=== PATIENT | male | born 1985 | race Caucasian/White ===

== ENCOUNTER 2022-12-16 20:45 | Emergency (ER) | payer OTHER, SELFPAY ==
[2022-12-16 20:47] VITALS: BP 113/78; PULSE 94; RESP 20; TEMP 36.5; O2SAT 98; BMI 52.3
--- NOTE | 2022-12-16 21:20 | HMH.EDGENADL ---
Discharge Plan Disposition Patient Disposition: Home, Self-Care Chief Complaint: Allergic Reaction Referrals Follow up/Referrals: Provider,Referral, MD [Primary Care Provider] - See instructions Activity Restrictions/Add. Instructions Additional Instructions/Restrictions: Call your family doctor to establish care for this visit to the emergency department and schedule follow-up within 48 hours to ensure improvement. If you have any worsening of your condition or any other concerning signs or symptoms, return to the emergency department or your primary care doctor for further evaluation. If you have swelling of your tongue or lips, difficulty breathing, whistling sound in your throat, wheezing, nausea or vomiting, sweating, diffuse rash/hives, lightheadedness, chest pain, shortness of breath, or any other concerns, return to the ER promptly for further evaluation. These are signs of anaphylaxis. Clinical Impressions Clinical Impression: Bee sting Qualifiers: Encounter type: initial encounter Injury intent: accidental or unintentional Qualified Code(s): T63.441A - Toxic effect of venom of bees, accidental (unintentional), initial encounter Instructions Patient Instructions: DI for Insect Bites and Stings Discharge ED Provider: Tyrone Teixeira General Adult HPI General Chief complaint: Allergic Reaction Stated complaint: bee stings Time Seen by Provider: 12/16/22 20:50 Mode of Arrival: Ambulatory Source of Information: Patient Limitations: No Limitations Description of Symptoms (Recalled from ER Triage Doc. by RN): pt reports being stung by 2 bees on left lower leg about 1 hour ago and is worried stinger is still in leg. History of Present Illness HPI narrative: Is a 37-year-old male with history of hypertension diabetes presenting with bee stings. Patient states he got stung on his left ankle about 1 hour ago by 2 bees. Denies chest pain, shortness of breath, nausea or vomiting, diarrhea, abdominal pain, swelling of his tongue or lips, difficulty breathing or swallowing, or any other concerns. Wanted to make sure he was okay having never been stung. [facility] Disclaimer: The information contained in this section may have been updated after the patient was seen, as this information can be updated by other users. Social History Smoking Status: Never smoker alcohol intake: never current occupational status: unemployed Travel in the last 8 weeks: None ROS Obtained: Yes All systems reviewed & no additional complaints except as documented Physical Exam General General appearance: alert, in no apparent distress and other ( ) Head Head exam: atraumatic and normocephalic Eye Eye exam: Present normal appearance, PERRL and EOMI ENT ENT exam: Present mucous membranes moist Neck Neck exam: Present normal inspection, full ROM and trachea midline Respiratory Respiratory exam: Absent respiratory distress, wheezes, stridor, accessory muscle use or prolonged expiratory phase Cardiovascular Cardiovascular exam: Present regular rate and normal rhythm Abdominal Exam Abdominal exam: Present soft; Absent distention, tenderness, guarding, rebound, rigidity or normal bowel sounds Extremities Exam Extremities exam: Absent edema Neurological Exam Neurological exam: Present alert, oriented X3, CN II-XII intact and normal gait; Absent motor sensory deficit Skin Skin exam: Present warm and dry; Absent diaphoresis or erythema Medical Decision Making Medical Records Medical records reviewed: Yes I reviewed the patient's medical records. Osmin Inquiry Pt receiving controlled substance: No Osmin was queried for this patient: No Vital Signs: 12/16/22 20:47 Temperature 97.7 F Temperature Source Oral Pulse Rate [Right] 94 H Respiratory Rate 20 Blood Pressure [Right Arm] 113/78 Blood Pressure Mean [Right Arm] 89 Blood Pressure Source [Right Arm] Automatic Cuff Blood Pressure Position [Right Arm] Sitting 02 Sat by Pulse Oxi
[2022-12-16 21:31] VITALS: BP 113/71; PULSE 89; RESP 20; TEMP 36.5; O2SAT 99
--- NOTE | 2022-12-16 21:31 | PC.NURSE ---
Denies any SOA, swelling or itching at discharge
== END 2022-12-16 21:32 | disposition home or self-care (01) ==
PROVIDERS: Emergency Provider Emergency Medicine
DX: S80.862A Insect bite (nonvenomous), left lower leg, initial encounter (principal); I10 Essential (primary) hypertension; E11.9 Type 2 diabetes mellitus without complications; W57.XXXA Bitten or stung by nonvenomous insect and other nonvenomous arthropods, initial encounter
CPT/HCPCS: 99282

== ENCOUNTER 2023-04-25 14:17 | Outpatient (CLI) | payer MEDICAID, SELFPAY ==
--- NOTE | 2023-04-25 14:23 | MR_ITS ---
FINAL REPORT CLINICAL HISTORY: left shoulder pain, limited rom FINDINGS: Multiplanar MR imaging of the left shoulder was performed without contrast. Some of the images are obscured by artifact. The tendons of the rotator cuff are intact without evidence of rotator cuff tear. The a.c. joint is intact. No abnormal fluid is seen in the subacromial/subdeltoid bursa. There is thickening and heterogeneity of the joint capsule at the axillary recess consistent with adhesive capsulitis. The glenoid labrum is intact. The long head of the biceps tendon is intact. No significant glenohumeral joint effusion is seen. There is no evidence of fracture or dislocation. The musculature is intact. There is no evidence of soft tissue mass. IMPRESSION: Adhesive capsulitis. Reviewed, Interpreted and Dictated by jK Geiger III, MD Transcribed by Mare Simon Authenticated and [facility]
== END 2023-04-25 23:59 ==
LOC: RAD 14:18
PROVIDERS: Visit Provider Physician Assistant
DX: M25.512 Pain in left shoulder (principal)
CPT/HCPCS: 73221

== ENCOUNTER 2023-09-01 18:25 | Emergency (ER) | payer MEDICAID, SELFPAY ==
[2023-09-01 18:45] VITALS: BP 118/81; PULSE 80; RESP 18; TEMP 37.1; O2SAT 96; BMI 55.0
--- NOTE | 2023-09-01 18:53 | EXP.UTC ---
Discharge Plan Disposition Patient Disposition: Home, Self-Care Condition: Good Prescriptions Prescriptions: New clindamycin HCl 300 mg capsule 300 mg PO Q8H Qty: 30 0RF benzonatate 100 mg capsule 100 mg PO TIDP PRN (Reason: Cough) Qty: 30 0RF mupirocin 2 % ointment 1 applic topical TID 7 Days Qty: 15 0RF Referrals Follow up/Referrals: Stevo Tineo PA [Primary Care Provider] - See instructions Activity Restrictions/Add. Instructions Additional Instructions/Restrictions: Drink plenty of fluids. Take tylenol for pain or fever. Take the medications as directed. Apply the antibiotic ointment (mupirocin/bactroban) to the ulcer in your right nare as directed. Follow up with your regular doctor. GO TO THE ER FOR ANY WORSENING SYMPTOMS Throw your tooth brush away and get a new one. Clinical Impressions Clinical Impression: Strep throat, Nasal mucositis (ulcerative) Instructions Patient Instructions: Strep Throat, DI for Strep Throat, Clindamycin, Mupirocin Discharge ED Provider: Rick Davenport [facility] General Stated complaint: sore throat, sinus pressure Time Seen by Provider: 09/01/23 18:52 Related Data Previous Rx's Medication Instructions Recorded benzonatate 100 mg capsule 100 mg PO TIDP PRN Cough #30 caps 09/01/23 clindamycin HCl 300 mg capsule 300 mg PO Q8H #30 caps 09/01/23 mupirocin 2 % topical ointment 1 applic topical TID 7 days #15 09/01/23 grams Allergies Allergy/AdvReac Type Severity Reaction Status Date / Time cefaclor [From [facility]] Allergy Verified 09/01/23 19:02 Penicillins Allergy Verified 09/01/23 19:02 [facility] Disclaimer: The information contained in this section may have been updated after the patient was seen, as this information can be updated by other users. Social History (Updated 12/16/22 @ 21:24 by Tyrone Teixeira MD) Smoking Status: Never smoker alcohol intake: never current occupational status: unemployed Travel in the last 8 weeks: None ROS Obtained: Yes All systems reviewed & no additional complaints except as documented Constitutional Constitutional: Reports chills and Reports fever(s) Eyes Eyes: Denies eye discharge ENT Ears, Nose, Mouth, and Throat: Reports as per HPI Cardiovascular Cardiovascular: Denies chest pain Respiratory Respiratory: Denies chest congestion and Reports cough Gastrointestinal Gastrointestingal: Reports nausea; Denies abdominal pain, constipation, cramping, diarrhea or vomiting Musculoskeletal Musculoskeletal: Denies arthralgias Integumentary/Breasts Skin/Breast: Denies rash Neurologic Neurologic: Denies paresthesias Physical Exam General General appearance: alert and in no apparent distress Head Head exam: atraumatic, normocephalic and normal inspection Eye Eye exam: Present normal appearance, PERRL and EOMI ENT ENT exam: Present mucous membranes moist and normal external ear exam Expanded ENT Exam TM/Canal exam: Bilateral TM: erythema and bulging Nose exam: Absent sinus tenderness Mouth exam: Present normal external inspection; Absent drooling Teeth exam: Present normal inspection Throat exam: Present tonsillar erythema, tonsillomegaly and tonsillar exudate Neck Neck exam: Present normal inspection, full ROM and trachea midline; Absent tenderness, meningismus or lymphadenopathy Chest Chest inspection: Present normal inspection and symmetric chest wall rise; Absent tenderness Respiratory Respiratory exam: Present normal lung sounds bilaterally; Absent respiratory distress, wheezes, stridor or accessory muscle use Cardiovascular Cardiovascular exam: Present regular rate and normal rhythm; Absent systolic murmur or diastolic murmur Abdominal Exam Abdominal exam: Present soft and normal bowel sounds; Absent distention, tenderness, guarding, rebound or rigidity Extremities Exam Extremities exam: Present normal inspection and normal capillary refill; Absent calf tenderness Back Exam Back exam: Present normal inspection and full ROM; Absent tenderness, CVA tenderness (R) or CVA tenderness (L) Neurological Exam Neurological exam: Present alert, oriented X3 and CN II-XII intact Psychiatric Psychiatric exam: Present normal affect and normal mood Skin Skin exam: Present warm, dry, intact and normal color Medical Decision Making Medical Records Medical records reviewed: No I reviewed the patient's medical records. Osmin Inquiry Pt receiving controlled substance: No Lab Data Lab results reviewed: Yes I reviewed the patient's lab results.
[2023-09-01 18:58] LABS: UTC Strep Screen (Rapid) Positive (Negative)
[2023-09-01 19:37] VITALS: BP 118/81; PULSE 80; RESP 18; TEMP 37.1; O2SAT 96
== END 2023-09-01 19:37 | disposition home or self-care (01) ==
PROVIDERS: Emergency Provider Nurse Practitioner Family; PCP Physician Assistant
DX: J02.0 Streptococcal pharyngitis (principal); R07.0 Pain in throat; J34.81 Nasal mucositis (ulcerative); R09.81 Nasal congestion
CPT/HCPCS: 87880; 99204; 99212; G0463

== ENCOUNTER 2025-01-13 18:03 | Emergency (ER) | payer MEDICAID, SELFPAY ==
--- OUTSIDE RECORDS SUMMARY | 2023-01-27 07:50 | XMS_ITS | Continuity of Care Document ---
Author Organization [facility] Address [address] [place] [address] Phone Care Team Providers Care Primer Inspector Name Role Phone Unavailable Unavailable Unavailable Allergies, Adverse Reactions, Alerts Substance Reaction Status Criticality promethazine Swelling(severe) Active No Informat ion Penicillins Active No Information cefaclor Active No Information Medications Medication Instructions Dosage Effective Dates (start - stop) Status Comments guanfacine 2 mg tablet TAKE ONE TABLET B Y MOUTH ONCE NIGHTLY AT BEDTIME 2 MG - Active lisinopril 20 mg tablet TAKE 1 TABLET BY MOUTH EVERY DAY - Active Tylenol Extra Strength 500 mg tablet take 1 tablet by oral route every 4 - 6 hours as needed not to exceed 8 tablets per 24hrs 500 MG - Active loratadine 10 mg tablet take 1 tablet by oral route every day 10 MG - Active Trulicity 0.75 mg/0.5 mL subcutaneous pen injector inject (0.75MG) by subcutaneous route every week - Active famotidine 20 mg tablet TAKE 1 TABLET BY MOUTH TWICE DAILY - Active trazodone 100 mg tablet take 1 Tablet by ORAL route every bedtime as needed for sleep 100 MG - Active Ventolin HFA 90 mcg/actuation aerosol inhaler inhale 2 puff by inhalation route every 4 - 6 hours as needed - Active Flonase Allergy Relief 50 mcg/actuation nasal spray,suspension inhale 1 spray by intranasal route every day in each nostril 50 MCG - Active pseudoephedrine 30 mg tablet take 1 tablet by ORAL route every 6 hours as needed for congestion 30 MG - Active Advance Directives Directive Yes / No Effective Date File Name No Information Encounters Encounter Description Practice Location Reason(s) For Visit Diagnoses Date Provider [facility], [address], [place], [place], [id number], tel:[phone] [facility] No Information 3 No Information [facility], [address], [place], [place], [id number], tel:[phone] [facility] No Information 3 Clinic RN. [address] [place] [address], [id number], . tel:[phone] [facility] [address], [place], [id number], tel:[phone] [facility] Morbid obesity with BMI of 50.0-59.9, adult August- 3 Perches Jose. [address] [place] [address], [id number], [place]. tel:[phone] [facility] [address], [place], [id number], tel:[phone] [facility] Medical hypertension (chief complaint)paddy betes (chief complaint)dep ression (chief complaint)cov id-19 (chief complaint)oth er (chief complaint) Type 2 diabetes mellitus without complicationsEsse ntial (primary) hypertensionMajor depressive disorder, recurrent episode, moderateOSA (obstructive sleep apnea)Gastroesoph ageal reflux disease without esophagitisMild intermittent asthma in adult without complicationEnvir onmental and seasonal allergiesMorbid obesity with body mass index (BMI) of 50.0 to 59.9 in adultBody mass index [BMI] 50.0-59.9, adult Mar-3 - 3 Karel Megha. [address] [place] [address], [id number], . tel:[phone] [facility], [address], [place], [place], [id number], [place] tel:[phone] [facility] Morbid obesity with BMI of 50.0-59.9, adult 3 [facility]. [address] [place] [address], [id number], [place]. tel:[phone] [facility], [address], [place], [id number], tel:[phone] [facility] Morbid obesity with BMI of 50.0-59.9, adult 3 [facility]. [address] [place] [address], [id number], [place]. tel:[phone] [facility], [address], [place], [id number], [place] tel:[phone] [facility] diabetes (chief complaint)hyp ertension (chief complaint)dep ression (chief complaint)COV ID 19 (chief complaint)oth er (chief complaint) Type 2 diabetes mellitus without complication, without long-term current use of insulinEssential (primary) hypertensionOSA (obstructive sleep apnea)Major depressive disorder, recurrent episode, moderateMorbid obesity with BMI of 50.0-59.9, adultBody mass index [BMI] 50.0-59.9, adult Mar- 2 Karel Lamia. [address] [place] [address], [id number], [place]. tel:[phone] [facility], [address], [place], [place], [id number], [place] tel:[phone] [facility] Morbid obesity with BMI of 50.0-59.9, adult 2 [facility]. [address] [place] [address], [id number], [place]. tel:[phone] [facility], [address], [place], [place], [id number], tel:[phone] [facility] Morbid obesity with BMI of 50.0-59.9, adult Oct- 2 Perches Jose. [address] [place] [address], [id number], [place]. tel:[phone] [facility], [address] [place] [address], [id number], tel:[phone] [facility] Medical diabetes (chief complaint)hyp ertension (chief complaint)dep ression (chief complaint)COV ID_19 Screen (chief complaint) Type 2 diabetes mellitus without complication, without long-term current use of insulinEssential (primary) hypertensionOSA (obstructive sleep apnea)Major depressive disorder, recurrent episode, moderateMorbid obesity with BMI of 50.0-59.9, adultBody mass index [BMI] 50.0-59.9, adultGastroesopha geal reflux disease without esophagitisMild intermittent asthma in adult without complication Sep- 2 Karel Megha. [address] [place] [address], [id number], [place]. tel:[phone] [facility], [address] [place] [address], [id number], [place] tel:[phone] [facility] Morbid obesity with BMI of 50.0-59.9, adult Sep-2 2 Perches Jose. [address] [place] [address], [id number], [place]. tel:[phone] [facility], [address] [place] [address], [id number], [place] tel:[phone] [facility] No Information Sep-0 2 Medical Support NonRn. [address] [place] [address], [id number], [place]. tel:[phone] [facility], [address] [place] [address], [id number], [place] tel:[phone] [facility] Morbid obesity with BMI of 50.0-59.9, adult Aug- 2 Perches Jose. [address] [place] [address], [id number], [place]. tel:[phone] [facility], [address], [place], [id number], [place] tel:[phone] [facility] Morbid obesity with BMI of 50.0-59.9, adult 2 Perches Jose. [address] [place] [address], [id number], [place]. tel:[phone] [facility], [address], [place], [id number], [place] tel:[phone] [facility] Medical Type 2 diabetes mellitus without complications 2 Medical Support NonRn. [address] [place] [address], [id number], [place]. tel:[phone] [facility], [address] [place] [address], [id number], [place] tel:[phone] [facility] Medical retinal eye exam (chief complaint) Type 2 diabetes mellitus without complication, without long-term current use of insulin 2 Medical Support NonRn. [address] [place] [address], [id number], [place]. tel:[phone] [facility], [address], [place], [id number], [place] tel:[phone] ABHILAHS [facility] Medical hypertension (chief complaint)paddy betes (chief complaint)dep ression (chief complaint)COV ID_19 Screen (chief complaint)All ergy symptoms (chief complaint) Type 2 diabetes mellitus without complication, without long-term current use of insulinEssential (primary) hypertensionMajor depressive disorder, recurrent episode, moderateOSA (obstructive sleep apnea)Morbid obesity with BMI of 50.0-59.9, adultBody mass index [BMI] 50.0-59.9, adultEnvironmenta l and seasonal allergiesPreventa ti health care 2 Karel Megha. [address] [place] [address], [id number], [place]. tel:[phone] [facility], [address], [place], [id number], [place] tel:[phone] [facility] Morbid obesity with BMI of 50.0-59.9, adult Bhavin- 2 Perches Jose. [address] [place] [address], [id number], [place]. tel:[phone] [facility], [address], [place], [place], [id number], [place] tel:[phone] [facility] Morbid obesity with BMI of 50.0-59.9, adult 2 Perches Jose. [address] [place] [address], [id number], [place]. tel:[phone] [facility], [address], [id number], [place] tel:[phone] [facility] No Information 2 Medical Support NonRn. [address] [place] [address], [id number], [place]. tel:[phone] [facility], [address], [place], [place], [id number], [place] tel:[phone] [facility] Medical diabetes (chief complaint)dep ression (chief complaint)hyp ertension (chief complaint)COV ID_19 Screen (chief complaint) Type 2 diabetes mellitus without complication, without long-term current use of insulinEssential (primary) hypertensionMajor depressive disorder, recurrent episode, moderateMorbid obesity with BMI of 50.0-59.9, adultBody mass index [BMI] 50.0-59.9, adultOSA (obstructive sleep apnea)Gastroesoph ageal reflux disease without esophagitisMild intermittent asthma in adult without complication 2 Karel Megha. [address] [place] [address], [id number], [place]. tel:[phone] [facility], [address], [place], [place], [id number], [place] tel:[phone] [facility] Morbid obesity with BMI of 50.0-59.9, adultMajor depressive disorder, recurrent episode, moderate 2 Perches Jose. [address] [place] [address], [id number], [place]. tel:[phone] [facility], [address], [id number], [place] tel:[phone] [facility] Morbid obesity with BMI of 50.0-59.9, adultMajor depressive disorder, recurrent episode, moderate 2 Perches Jose. [address] [place] [address], [id number], [place]. tel:[phone] [facility], [address], [place], [id number], [place] tel:[phone] [facility] No Information 2 Medical Support NonRn. [address] [place] [address], [id number], [place]. tel:[phone] [facility], [address], [id number], [place] tel:[phone] [facility] Medical imms (chief complaint) Encounter for immunization 1 Medical Support NonRn. [address] [place] [address], [id number], [place]. tel:[phone] [facility], [address], [id number], [place] tel:[phone] [facility] depression (chief complaint)paddy betes (chief complaint)hyp ertension (chief complaint)COV ID_19 Screen (chief complaint) Type 2 diabetes mellitus without complication, without long-term current use of insulinEssential (primary) hypertensionMajor depressive disorder, recurrent episode, moderateOSA (obstructive sleep apnea) 1 Karel Cleveland. [address] [place] [address], [id number], [place]. tel:[phone] [facility], [address], [place], [id number], tel:[phone] [facility] Morbid obesity with BMI of 50.0-59.9, adult 1 [facility], [id number], . tel:[phone] [place] [address], [address] [place] [address], [id number], tel:[phone] [facility] Morbid obesity with BMI of 50.0-59.9, adult [address], [id number], [place]. tel:[phone] [place] [address], [address] [place] [address], [id number], tel:[phone] [facility] Morbid obesity with BMI of 50.0-59.9, adultMajor depressive disorder, recurrent episode, moderate Jan- [address], [id number], [place]. tel:[phone] [place] [address], [address], [id number], [place] tel:[phone] [facility] Morbid obesity with BMI of 50.0-59.9, adult [address], [id number], [place]. tel:[phone] [place] [address], [address] [place] [address], [id number], [place] tel:[phone] [facility] Medical diabetes (chief complaint)hyp ertension (chief complaint)dep ression (chief complaint)COV ID_19 Screen (chief complaint) Type 2 diabetes mellitus without complication, without long-term current use of insulinEssential (primary) hypertensionMajor depressive disorder, recurrent episode, moderateOSA (obstructive sleep apnea)Morbid obesity with BMI of 50.0-59.9, adultBody mass index [BMI] 50.0-59.9, adult Sep-1 0- 1 Karel Cleveland. [address] [place] [address], [id number], [place]. tel:[phone] [facility], [address], [place], [id number], [place] tel:[phone] [facility] No Information Sep-0 1 Medical Support NonRn. [address] [place] [address], [id number], [place]. tel:[phone] [facility], [address], [place], [id number], [place] tel:[phone] [facility] Morbid obesity with BMI of 50.0-59.9, adult Aug- 1 Marilyn Garcia. [address] [place] [address], [id number], [place]. tel:[phone] [facility], [address], [place], [id number], [place] tel:[phone] [place] [address] Medical Morbid obesity with BMI of 50.0-59.9, adult Antonio- 1 No Information [facility], [address], [place], [id number], [place] tel:[phone] [facility] No Information 1 Medical Support NonRn. [address] [place] [address], [id number], [place]. tel:[phone] [facility], [address], [id number], [place] tel:[phone] [facility] Medical Retinal Eye Exam (chief complaint) Type 2 diabetes mellitus without complication, without long-term current use of insulin 1 Medical Support NonRn. [address] [place] [address], [id number], [place]. tel:[phone] [facility], [address], [place], [id number], [place] tel:[phone] [facility] Medical imms (chief complaint) Encounter for immunization 1 Medical Support NonRn. [address] [place] [address], [id number], [place]. tel:[phone] [facility], [address], [place], [place], [id number], [place] tel:[phone] [facility] Morbid obesity with BMI of 50.0-59.9, adult 1 No Information [facility], [address], [place], [place], [id number], [place] tel:[phone] [facility] Sukhdeep Al[facility]ado Medical diabetes (chief complaint)hyp ertension (chief complaint)dep ression (chief complaint)COV ID_19 Screen (chief complaint)All ergy symptoms (chief complaint) Type 2 diabetes mellitus without complication, without long-term current use of insulinEssential (primary) hypertensionEnvir onmental and seasonal allergiesMajor depressive disorder, recurrent episode, moderateGastroeso phageal reflux disease without esophagitisOSA (obstructive sleep apnea)Body mass index (BMI) of 50-59.9 in adult 1 Karel Cleveland. [address] [place] [address], [id number], [place]. tel:[phone] [facility], [address], [place], [place], [id number], [place] tel:[phone] [facility] Morbid obesity with BMI of 50.0-59.9, adult 1 No Information [facility], [address], [place], [place], [id number], [place] tel:[phone] [facility] Moderate single current episode of major depressive disorderMorbid obesity with BMI of 50.0-59.9, adult 1 No Information [facility], [address], [place], [id number], [place] tel:[phone] [facility] S[facility]hdeep [facility] COVID_19 Screen (chief complaint)[facility] S evaluation (chief complaint) Body mass index (BMI) 50-59.9 , adultMorbid obesity with BMI of 50.0-59.9, adultMajor depressive disorder, recurrent episode, moderateChronic left shoulder painPain in right kneePain in left knee Jun-3 1 Karel Cleveland. [address] [place] [address], [id number], . tel:[phone] [facility], [address], [place], [id number], [place] tel:[phone] [facility] Medical depression (chief complaint)paddy betes (chief complaint)hyp ertension (chief complaint)Raphael ulder Pain (chief complaint)COV ID_19 Screen (chief complaint)Obe sity (chief complaint) Type 2 diabetes mellitus without complication, without long-term current use of insulinEssential (primary) hypertensionMajor depressive disorder, recurrent episode, moderateMild intermittent asthma in adult without complicationGastr oesophageal reflux disease without esophagitisDry skinMorbid obesity with BMI of 50.0-59.9, adultBody mass index [BMI] 50.0-59.9, adultOSA (obstructive sleep apnea) Jun-0 1 Karel Cleveland. [address] [place] [address], [id number], [place]. tel:[phone] [facility], [address], [place], [id number], [place] tel:[phone] [facility] Moderate single current episode of major depressive disorderMorbid obesity with BMI of 50.0-59.9, adult Fe- 1 No Information [facility], [address], [place], [place], [id number], [place] tel:[phone] [facility] Moderate single current episode of major depressive disorder No Information [facility], [address], [place], [place], [id number], [place] tel:[phone] [facility] Moderate single current episode of major depressive disorder 1 No Information [facility], [address], [place], [place], [id number], tel:[phone] [facility] Sukhdeep Alvarado Medical depression (chief complaint)paddy betes (chief complaint)hyp ertension (chief complaint)COV ID_19 Screen (chief complaint) Type 2 diabetes mellitus without complication, without long-term current use of insulinEssential (primary) hypertensionOSA (obstructive sleep apnea)Major depressive disorder, recurrent episode, moderateMorbid obesity with BMI of 50.0-59.9, adultBody mass index [BMI] 50.0-59.9, adultChronic left shoulder pain Dec- 0 Karel Cleveland. [address] [place] [address], [id number], . tel:[phone] [facility], [address], [place], [place], [id number], tel:[phone] [facility] Moderate single current episode of major depressive disorderMorbid obesity with BMI of 50.0-59.9, adult Nov- 0 No Information [facility], [address], [place], [place], [id number], [place] tel:[phone] [facility] Moderate single current episode of major depressive disorderMorbid obesity with BMI of 50.0-59.9, adult Sep-3 0-202 0 No Information [facility], [address], [place], [place], [id number], tel:[phone] [facility] Sukhdeep Alvarado Medical diabetes (chief complaint)hyp ertension (chief complaint)dep ression (chief complaint)COV ID_19 Screen (chief complaint) Type 2 diabetes mellitus without complication, without long-term current use of insulinEssential (primary) hypertensionMajor depressive disorder, recurrent episode, moderateMorbid obesity with BMI of 50.0-59.9, adultBody mass index (BMI) 50.0-59.9, adultOSA (obstructive sleep apnea) 0 Karel Cleveland. [address] [place] [address], [id number], [place]. tel:[phone] [facility], [address], [place], [id number], [place] tel:[phone] [facility] Moderate single current episode of major depressive disorderMorbid obesity with BMI of 50.0-59.9, adult 0 No Information [facility], [address], [place], [id number], [place] tel:[phone] [facility] No Information 0 Medical Support NonRn. [address], [id number], [place]. tel:[phone] [facility], [address], [place], [place], [id number], [place] tel:[phone] [facility] Moderate single current episode of major depressive disorderMorbid obesity with BMI of 50.0-59.9, adult 0 No Information [facility], [address], [place], [id number], [place] tel:[phone] [facility] Moderate single current episode of major depressive disorderMorbid obesity with BMI of 50.0-59.9, adult 0 No Information [facility], [address], [place], [place], [id number], [place] tel:[phone] [facility] Medical depression (chief complaint)paddy betes (chief complaint)hyp ertension (chief complaint) Type 2 diabetes mellitus without complication, without long-term current use of insulinEssential (primary) hypertensionOSA (obstructive sleep apnea)Major depressive disorder, recurrent episode, moderateMorbid obesity with BMI of 50.0-59.9, adultBody mass index (BMI) 50.0-59.9, adult 0 Karel Megha. [address], [id number], [place]. tel:[phone] [facility], [address], [place], [place], [id number], [place] tel:[phone] [facility] Moderate single current episode of major depressive disorder 0 No Information [facility], [address], [place], [place], [id number], tel:[phone] [facility] No Information 0 Health Care Information [facility]. [address] [place] [address], [id number], [place]. [facility], [address], [place], [place], [id number], tel:[phone] [facility] Retinal eye exam (chief complaint) Type 2 diabetes mellitus without complication, without long-term current use of insulin 0 Medical Support NonRn. [address] [place] [address], [id number], [place]. tel:[phone] [facility], [address], [place], [id number], [place] tel:[phone] [facility] Moderate single current episode of major depressive disorderOSA (obstructive sleep apnea)Morbid obesity, unspecified obesity type 0 No Information [facility], [address], [place], [place], [id number], [place] tel:[phone] [facility] depression (chief complaint)paddy betes (chief complaint)Obe sity (chief complaint)Sle ep apnea (follow up) (chief complaint)hyp ertension (chief complaint) Essential (primary) hypertensionOSA (obstructive sleep apnea)Type 2 diabetes mellitus without complication, without long-term current use of insulinMorbid obesity with BMI of 50.0-59.9, adultBody mass index (BMI) 50.0-59.9, adultMajor depressive disorder, recurrent episode, moderate 0 Karel Cleveland. [address] [place] [address], [id number], [place]. tel:[phone] [facility], [address], [place], [place], [id number], tel:[phone] [facility] Moderate single current episode of major depressive disorder 9 No Information [facility], [address], [place], [place], [id number], tel:[phone] [facility] Moderate single current episode of major depressive disorder Jan-3 0 9 No Information [facility], [address], [place], [place], [id number], tel:[phone] [facility] Sukhdeep [facility] Medical depression (chief complaint)paddy betes (chief complaint)hyp ertension (chief complaint) Major depressive disorder, recurrent episode, moderateType 2 diabetes mellitus without complication, without long-term current use of insulinEssential (primary) hypertensionMorbi d obesity with BMI of 50.0-59.9, adultOSA (obstructive sleep apnea)Chronic left shoulder painBody mass index (BMI) 50.0-59.9, adult Jan- 9 Karel Cleveland. [address] [place] [address], [id number], . tel:[phone] [facility], [address], [place], [place], [id number], tel:[phone] [facility] Moderate single current episode of major depressive disorder Sep-2 9 No Information [facility], [address], [place], [place], [id number], tel:[phone] [facility] No Information Dec-0 9 Medical Support NonRn. [address], [id number], [place]. tel:[phone] [facility], [address], [place], [place], [id number], [place] tel:[phone] [facility] Sukhdeep Alvarado CC Medical Incapacity Review (chief complaint)Raphael ulder Pain (chief complaint) Chronic left shoulder painMajor depressive disorder, recurrent episode, moderateMorbid obesity with BMI of 50.0-59.9, adultBody mass index (BMI) 50-59.9, adult Sep-0 9 Karel Cleveland. [address], [id number], [place]. tel:[phone] [facility], [address], [place], [id number], [place] tel:[phone] [facility] Medical Moderate single current episode of major depressive disorderMorbid obesity with body mass index (BMI) of 60.0 to 69.9 in adult Nov- 9 No Information [facility], [address], [place], [id number], [place] tel:[phone] [facility] diabetes (chief complaint)dep ression (chief complaint)hyp ertension (chief complaint) Essential (primary) hypertensionType 2 diabetes mellitus without complication, without long-term current use of insulinOSA (obstructive sleep apnea)Major depressive disorder, recurrent episode, moderateMorbid obesity with body mass index (BMI) of 60.0 to 69.9 in adultBody mass index (bmi) 60.0-69.9, adultEnvironmenta l and seasonal allergies 9 Karel Cleveland. [address], [id number], [place]. tel:[phone] [facility], [address], [place], [place], [id number], [place] tel:[phone] [facility] Moderate single current episode of major depressive disorder No Information [facility], [address], [place], [place], [id number], [place] tel:[phone] [facility] Medical No Information Health Care Information [facility]. [address] [place] [address], [id number], [place]. [facility], [address], [place], [id number], [place] tel:[phone] [facility] Medical No Information Health Care Information [facility]. [address], [id number], [place]. [facility], [address], [place], [place], [id number], [place] tel:[phone] [facility] Medical Moderate single current episode of major depressive disorder 9 No Information [facility], [address], [place], [place], [id number], [place] tel:[phone] [facility] Moderate single current episode of major depressive disorderMorbid obesity with body mass index of 60.0-69.9 in adult 9 No Information [facility], [address], [place], [place], [id number], [place] tel:[phone] [facility] Moderate single current episode of major depressive disorder 9 No Information [facility], [address], [place], [place], [id number], [place] tel:[phone] [facility] Sukhdeep Alvarado Medical depression (chief complaint)paddy betes (chief complaint)hyp ertension (chief complaint)Ast hma (chief complaint) Type 2 diabetes mellitus without complication, without long-term current use of insulinEssential (primary) hypertensionMajor depressive disorder, recurrent episode, moderateMorbid obesity with body mass index of 60.0-69.9 in adultBody mass index (bmi) 60.0-69.9, adultMild intermittent asthma in adult without complicationOSA (obstructive sleep apnea) 9 Karel Cleveland. [address], [id number], [place]. tel:[phone] [facility], [address], [place], [place], [id number], [place] tel:[phone] [facility] No Information 9 No Information [facility], [address], [place], [place], [address], [place] tel:[phone] [facility] Retinal eye exam (chief complaint) Type 2 diabetes mellitus without complication, without long-term current use of insulin 9 Medical Support NonRn. [address], [id number], [place]. tel:[phone] [facility], [address], [place], [place], [id number], [place] tel:[phone] [facility] Moderate single current episode of major depressive disorder 9 No Information [facility], [address], [place], [place], [id number], [place] tel:[phone] [facility] Sukhdeep Alvarado CC Medical diabetes (chief complaint)hyp ertension (chief complaint)dep ression (chief complaint) Type 2 diabetes mellitus without complication, without long-term current use of insulinEssential (primary) hypertensionMajor depressive disorder, recurrent episode, moderateMorbid obesity with body mass index of 60.0-69.9 in adultBody mass index (bmi) 60.0-69.9, adult 9 Karel Cleveland. [address], [id number], [place]. tel:[phone] [facility], [address], [place], [place], [id number], [place] tel:[phone] [facility] Moderate single current episode of major depressive disorder 8 No Information [facility], [address], [place], [place], [id number], [place] tel:[phone] [facility] No Information 8 Delvin Breen. [address], [place], [place], [id number], [place]. [facility], [address], [place], [place], [id number], [place] tel:[phone] [facility] No Information 8 Health Care Information [facility]. [address], [id number], [place]. [facility], [address], [place], [place], [id number], [place] tel:[phone] [facility] Medical Attention deficit hyperactivity disorder (ADHD), predominantly inattentive type 8 No Information [facility], [address], [place], [place], [id number], [place] tel:[phone] [facility] No Information 8 Delvin Breen. [address], [place], [place], [id number], [place]. [facility], [address], [place], [place], [id number], [place] tel:[phone] [facility] Sukhdeep Alvarado CC Medical depression (chief complaint)paddy betes (chief complaint)hyp ertension (chief complaint) Type 2 diabetes mellitus without complication, without long-term current use of insulinEssential (primary) hypertensionMajor depressive disorder, recurrent episode, moderateMorbid obesity with body mass index of 60.0-69.9 in adultBody mass index (bmi) 60.0-69.9, adultChronic left shoulder pain 8 Karel Cleveland. [address], [id number], [place]. tel:[phone] [facility], [address], [place], [place], [id number], [place] tel:[phone] [facility] No Information 8 No Information [facility], [address], [place], [place], [id number], [place] tel:[phone] [facility] Medical depression (chief complaint) Attention deficit hyperactivity disorder (ADHD), predominantly inattentive type 8 No Information [facility], [address], [place], [place], [id number], [place] tel:[phone] [facility] Medical Incap Exam (chief complaint) Encounter for disability assessmentMorbid obesity with body mass index of 60.0-69.9 in adultRight knee pain, unspecified chronicityRight ankle pain, unspecified chronicity 8 No Information [facility], [address], [place], [place], [id number], [place] tel:[phone] [facility] [place] [facility] No Information 8 No Information [facility], [address], [place], [place], [id number], tel:[phone] [facility] Attention deficit hyperactivity disorder (ADHD), predominantly inattentive type 8 No Information [facility], [address], [place], [place], [address], [place] tel:[phone] [facility] No Information 8 Health Care Information [facility]. [address] [place] [address], [id number], [place]. [facility], [address], [place], [place], [id number], tel:[phone] [facility] [place] [facility] No Information 8 No Information [facility], [address], [place], [place], [id number], [place] tel:[phone] [facility] Medical depression (chief complaint) Attention deficit hyperactivity disorder (ADHD), predominantly inattentive type 8 No Information [facility], [address], [place], [place], [id number], [place] tel:[phone] [facility] diabetes (chief complaint)hyp ertension (chief complaint)dep ression (chief complaint) Type 2 diabetes mellitus without complication, without long-term current use of insulinEssential (primary) hypertensionMajor depressive disorder, recurrent episode, moderateChronic left shoulder painMorbid obesity with body mass index of 60.0-69.9 in adultBody mass index (bmi) 60.0-69.9, adult 8 Karel Cleveland. [address] [place] [address], [id number], [place]. tel:[phone] [facility], [address], [place], [place], [id number], [place] tel:[phone] [facility] No Information 8 No Information [facility], [address], [place], [place], [id number], [place] tel:[phone] [facility] Medical depression (chief complaint) Attention deficit hyperactivity disorder (ADHD), predominantly inattentive typeMDD (major depressive disorder), recurrent, in partial remissionChronic shoulder pain, unspecified lateralityOther chronic painMorbid obesity, unspecified obesity type 8 No Information [facility], [address], [place], [place], [id number], [place] tel:[phone] [facility] [place] No Information 8 No Information [facility], [address], [place], [place], [id number], [place] tel:[phone] [facility] Medical depression (chief complaint) Attention deficit hyperactivity disorder (ADHD), predominantly inattentive typeMDD (major depressive disorder), recurrent, in partial remissionChronic shoulder pain, unspecified lateralityOther chronic painMorbid obesity, unspecified obesity type 8 No Information [facility], [address], [place], [place], [id number], [place] tel:[phone] [facility] [place] No Information 8 No Information [facility], [address], [place], [place], [id number], [place] tel:[phone] [facility] Sukhdeep Alvarado CC Medical Follow Up of diabetes (chief complaint)dep ression (chief complaint) Type 2 diabetes mellitus without complication, without long-term current use of insulinMajor depressive disorder, recurrent episode, moderateGERD without esophagitisChroni c left shoulder painVitamin D deficiencyEssenti al (primary) hypertensionOSA (obstructive sleep apnea) 8 Karel Cleveland. [address] [place] [address], [id number], . tel:[phone] [facility], [address], [place], [place], [id number], [place] tel:[phone] [facility] [place] No Information 8 No Information [facility], [address], [place], [place], [address], [place] tel:[phone] [facility] Medical Attention deficit hyperactivity disorder (ADHD), predominantly inattentive typeMDD (major depressive disorder), recurrent, in partial remissionChronic shoulder pain, unspecified lateralityOther chronic painMorbid obesity, unspecified obesity type 8 No Information [facility], [address], [place], [place], [id number], [place] tel:[phone] [facility] [place] No Information 8 No Information [facility], [address], [place], [place], [id number], [place] tel:[phone] [facility] Medical Attention deficit hyperactivity disorder (ADHD), predominantly inattentive typeMDD (major depressive disorder), recurrent, in partial remissionChronic shoulder pain, unspecified lateralityOther chronic painMorbid obesity, unspecified obesity type 8 No Information [facility], [address], [place], [place], [id number], [place] tel:[phone] [facility] [place] No Information 8 No Information [facility], [address], [place], [place], [id number], [place] tel:[phone] [facility] [place] No Information 8 No Information [facility], [address], [place], [place], [id number], [place] tel:[phone] [facility] Medical eyepacs (chief complaint) Type 2 diabetes mellitus without complication, without long-term current use of insulin 8 Medical Support NonRn. [address] [place] [address], [place], [place], [id number], [place]. tel:[phone] [facility], [address], [place], [place], [id number], [place] tel:[phone] [facility] [place] No Information 8 No Information [facility], [address], [place], [place], [id number], tel:[phone] [facility] Medical depression (chief complaint) Attention deficit hyperactivity disorder (ADHD), predominantly inattentive typeMDD (major depressive disorder), recurrent, in partial remissionChronic shoulder pain, unspecified lateralityOther chronic painMorbid obesity, unspecified obesity type 8 No Information [facility], [address], [place], [place], [id number], [place] tel:[phone] [facility] Sukhdeep Alvarado Medical depression (chief complaint)raphael ulder pain (chief complaint)paddy betes (chief complaint) Type 2 diabetes mellitus without complication, without long-term current use of insulinMajor depressive disorder, recurrent episode, moderateChronic left shoulder painMorbid obesity with body mass index of 60.0-69.9 in adultBody mass index (bmi) 60.0-69.9, adultGERD without esophagitisVitami n D deficiency 8 Karel Cleveland. [address] [place] [address], [id number], . tel:[phone] [facility], [address], [place], [id number], tel:[phone] [facility] [place] No Information 7 No Information [facility], [address], [place], [place], [id number], [place] tel:[phone] [facility] Medical depression (chief complaint) Attention deficit hyperactivity disorder (ADHD), predominantly inattentive typeMDD (major depressive disorder), recurrent, in partial remissionChronic shoulder pain, unspecified lateralityOther chronic painMorbid obesity, unspecified obesity type 7 No Information [facility], [address], [place], [id number], tel:[phone] [facility] [place] No Information No Information [facility], [address], [place], [place], [address], tel:[phone] [facility] Attention deficit hyperactivity disorder (ADHD), predominantly inattentive typeMDD (major depressive disorder), recurrent, in partial remissionChronic shoulder pain, unspecified lateralityOther chronic painMorbid obesity, unspecified obesity type No Information [facility], [address], [place], [place], [id number], [place] tel:[phone] [facility] [place] No Information No Information [facility], [address], [place], [place], [address], [place] tel:[phone] [facility] Sukhdeep Alvarado Medical shoulder pain (chief complaint)toe nail problems (chief complaint)All ergy symptoms (chief complaint) Major depressive disorder, recurrent episode, moderateMorbid obesity with body mass index of 60.0-69.9 in adultBody mass index (bmi) 60.0-69.9, adultChronic left shoulder painChronic allergic rhinitis, unspecified seasonality, unspecified triggerADHD, predominantly inattentive type Karel Cleveland. [address] [place] [address], [id number], . tel:[phone] [facility], [address], [place], [place], [id number], [place] tel:[phone] [facility] Attention deficit hyperactivity disorder (ADHD), predominantly inattentive typeMDD (major depressive disorder), recurrent, in partial remissionChronic shoulder pain, unspecified lateralityOther chronic painMorbid obesity, unspecified obesity type No Information [facility], [address], [place], [place], [id number], [place] tel:[phone] [facility] Attention deficit hyperactivity disorder (ADHD), predominantly inattentive typeMDD (major depressive disorder), recurrent, in partial remissionChronic shoulder pain, unspecified lateralityOther chronic painMorbid obesity, unspecified obesity type 7 No Information [facility], [address], [place], [place], [id number], [place] tel:[phone] [facility] No Information Health Care Information [facility]. [address], [place], [place], [id number], [place]. [facility], [address], [place], [place], [id number], [place] tel:[phone] [facility] Attention deficit hyperactivity disorder (ADHD), predominantly inattentive typeMDD (major depressive disorder), recurrent, in partial remissionChronic shoulder pain, unspecified lateralityOther chronic painMorbid obesity, unspecified obesity type 7 No Information [facility], [address], [place], [place], [id number], [place] tel:[phone] [facility] Attention deficit hyperactivity disorder (ADHD), predominantly inattentive typeMDD (major depressive disorder), recurrent, in partial remissionChronic shoulder pain, unspecified lateralityOther chronic painMorbid obesity, unspecified obesity type No Information [facility], [address], [place], [place], [id number], [place] tel:[phone] [facility] Sukhdeep Alvarado Medical cough (chief complaint) Morbid obesity with body mass index of 60.0-69.9 in adultHyperlipidem ia, unspecified hyperlipidemia typePost-nasal drainage 7 No Information [facility], [address], [place], [place], [id number], [place] tel:[phone] [facility] Attention deficit hyperactivity disorder (ADHD), predominantly inattentive typeMDD (major depressive disorder), recurrent, in partial remissionChronic shoulder pain, unspecified lateralityOther chronic painMorbid obesity, unspecified obesity type 7 No Information [facility], [address], [place], [place], [address], [place] tel:[phone] [facility] bug bite (chief complaint) Rash and nonspecific skin eruption 0 7 No Information [facility], [address], [place], [place], [id number], [place] tel:[phone] [facility] ADHD (chief complaint)dep ression (chief complaint) Attention deficit hyperactivity disorder (ADHD), predominantly inattentive typeMDD (major depressive disorder), recurrent, in partial remissionChronic shoulder pain, unspecified lateralityOther chronic painMorbid obesity, unspecified obesity type 0 7 No Information [facility], [address], [place], [place], [id number], [place] tel:[phone] [facility] [employer] No Information 7 No Information [facility], [address], [place], [place], [id number], [place] tel:[phone] [facility] [place] No Information 7 No Information [facility], [address], [place], [place], [id number], [place] tel:[phone] [facility] shoulder pain (chief complaint)hyp erlipidemia (chief complaint)Sno ring (adult) (chief complaint) Chronic left shoulder painMixed hyperlipidemiaNee d for assessment for sleep apneaRoutine adult health maintenanceMorbid obesity, unspecified obesity type 0 7 No Information [facility], [address], [place], [place], [id number], [place] tel:[phone] [facility] ADHD (chief complaint)dep ression (chief complaint) Attention deficit hyperactivity disorder (ADHD), predominantly inattentive typeMDD (major depressive disorder), recurrent, in partial remissionChronic shoulder pain, unspecified lateralityOther chronic painMorbid obesity, unspecified obesity typeBody mass index (BMI) 50-59.9 , adult Jun- 6- 7 No Information [facility], [address], [place], [place], [id number], [place] tel:[phone] [facility] [place] No Information No Information [facility], [address], [place], [place], [id number], tel:[phone] [facility] [place] No Information 7 No Information [facility], [address], [place], [place], [id number], [place] tel:[phone] [facility] anxiety (chief complaint)dep ression (chief complaint)Ins omnia (chief complaint) Attention deficit hyperactivity disorder (ADHD), predominantly inattentive typeMDD (major depressive disorder), recurrent, in partial remissionXerostom iaChronic shoulder pain, unspecified lateralityOther chronic painMorbid obesity, unspecified obesity typeBody mass index (BMI) 50-59.9 , adult No Information [facility], [address], [place], [place], [id number], [place] tel:[phone] [facility] No Information Health Care Information [facility]. [address] [place] [address], [id number], [place]. [facility], [address], [place], [id number], [place] tel:[phone] [facility] L shoulder pain (chief complaint)dep ression (chief complaint)CATINA D (chief complaint)all ergies (chief complaint) Body mass index (BMI) 60.0-69.9, adultMorbid obesity, unspecified obesity typeChronic left shoulder painOther chronic painAllergic rhinitis, unspecified allergic rhinitis trigger, unspecified rhinitis seasonalityGastro esophageal reflux disease, esophagitis presence not specifiedModerate single current episode of major depressive disorderHyperlipi demia, unspecified hyperlipidemia typePre-diabetes No Information [facility], [address], [place], [place], [id number], [place] tel:[phone] [facility] [place] No Information No Information [facility], [address], [place], [place], [address], [place] tel:[phone] [facility] [place] No Information 6 No Information [facility], [address], [place], [place], [id number], tel:[phone] [facility] anxiety (chief complaint)dep ression (chief complaint)Ins omnia (chief complaint) Attention deficit hyperactivity disorder (ADHD), predominantly inattentive typeMDD (major depressive disorder), recurrent, in partial remissionAngerFre quent nocturnal awakeningMorbid obesity, unspecified obesity typeChronic shoulder pain, unspecified lateralityOther chronic painXerostomiaBod y mass index (BMI) 50-59.9 , adult Feb- 6 No Information [facility], [address], [place], [place], [address], [place] tel:[phone] [facility] Chronic left shoulder painOther chronic pain 6 Clinic RN. [address] [place] [address], [id number], [place]. tel:[phone] [facility], [address], [place], [place], [id number], [place] tel:[phone] [facility] [place] No Information 6 No Information [facility], [address], [place], [place], [id number], [place] tel:[phone] [facility] Medical Follow Up of L shoulder pain (chief complaint)Fol low Up of depression (chief complaint)CATINA D (chief complaint)R knee pain (chief complaint) Pre-diabetesMDD (major depressive disorder), recurrent, in partial remissionHyperlip idemia, unspecified hyperlipidemia typeGastroesophag eal reflux disease, esophagitis presence not specifiedChronic left shoulder painOther chronic painRight knee pain 6 No Information [facility], [address], [place], [place], [id number], [place] tel:[phone] [facility], [place] No Information 6 No Information [facility], [address], [place], [place], [address], [place] tel:[phone] [facility], [place] No Information 6 No Information [facility], [address], [place], [place], [id number], [place] tel:[phone] [facility] Medical anxiety (chief complaint)dep ression (chief complaint)Ins omnia (chief complaint) Attention deficit hyperactivity disorder (ADHD), predominantly inattentive typeMDD (major depressive disorder), recurrent, in partial remissionFrequent nocturnal awakeningPoor eating habitsBody mass index (BMI) 50-59.9 , adultMorbid obesity, unspecified obesity typeAnger 6 No Information [facility], [address], [place], [place], [id number], [place] tel:[phone] [facility], [place] No Information 6 No Information [facility], [address], [place], [place], [address], [place] tel:[phone] [facility] Medical L shoulder pain (chief complaint)dep ression (chief complaint) Chronic left shoulder painOther chronic painChronic pain of right kneeHyperlipidemi a, unspecified hyperlipidemia typePre-diabetesM oderate single current episode of major depressive disorder 6 No Information [facility], [address], [place], [place], [id number], [place] tel:[phone] [facility], [place] No Information 6 No Information [facility], [address], [place], [place], [id number], [place] tel:[phone] [facility], [place] No Information 6 No Information [facility], [address], [place], [place], [address], [place] tel:[phone] [facility] Dental Encounter for dental examination and cleaning with abnormal findingsEncounter for dental exam and cleaning w/o abnormal findings 6 No Information [facility], [address], [place], [place], [id number], [place] tel:[phone] [facility], [place] No Information 6 No Information [facility], [address], [place], [place], [id number], [place] tel:[phone] [facility] Dental Encounter for dental examination and cleaning with abnormal findingsEncounter for dental exam and cleaning w/o abnormal findings Jul-0 6 No Information [facility], [address], [place], [place], [id number], [place] tel:[phone] [facility], [place] No Information 6 No Information [facility], [address], [place], [place], [id number], [place] tel:[phone] [facility] Dental Encounter for dental examination and cleaning with abnormal findingsEncounter for dental exam and cleaning w/o abnormal findings 0 6 No Information [facility], [address], [place], [place], [id number], [place] tel:[phone] [facility] Medical depression (chief complaint)all ergies (chief complaint)kne e/shoulder pain (chief complaint)CATINA D (chief complaint) Gastroesophageal reflux disease, esophagitis presence not specifiedBody mass index (BMI) 50-59.9 , adultMorbid obesity, unspecified obesity typeChronic pain of right kneeOther chronic painChronic left shoulder painMajor depressive disorder, recurrent episode, moderateAllergic rhinitis, unspecified allergic rhinitis type 6 No Information [facility], [address], [place], [place], [id number], [place] tel:[phone] [facility] Medical Left shoulder pain 6 [facility] Support NonRn. [address] [place] [address], [place], [place], [id number], [place]. tel:[phone] [facility], [address], [place], [place], [id number], [place] tel:[phone] [facility], [place] No Information 6 No Information [facility], [address], [place], [place], [id number], [place] tel:[phone] [facility] Dental Encounter for dental examination and cleaning with abnormal findingsEncounter for dental exam and cleaning w/o abnormal findings 6 Carie Howard. [address], [place], [place], [id number], [place]. tel:[phone] [facility], [address], [place], [place], [id number], [place] tel:[phone] [facility], [place] No Information 6 No Information [facility], [address], [place], [place], [address], [place] tel:[phone] [facility], [place] No Information 6 No Information [facility], [address], [place], [place], [id number], [place] tel:[phone] [facility], [place] No Information 6 No Information [facility], [address], [place], [place], [id number], [place] tel:[phone] [facility], [place] No Information 6 No Information [facility], [address], [place], [place], [id number], [place] tel:[phone] [facility] Medical shoulder pain (chief complaint)kne e pain (chief complaint)dep ression (chief complaint)CATINA D (chief complaint)hyp erlipidemia (chief complaint) Left shoulder painRight knee painMajor depressive disorder, recurrent episode, moderateHyperlipi demia, unspecified hyperlipidemia typeBMI 50.0-59.9, adultGastroesopha geal reflux disease, esophagitis presence not specified Dec-3 0- 5 No Information [facility], [address], [place], [place], [id number], [place] tel:[phone] [facility] [place] Dental Encounter for dental examination and cleaning with abnormal findingsEncounter for dental exam and cleaning w/o abnormal findings Mar-2 - 5 No Information [facility], [address], [place], [place], [id number], [place] tel:[phone] [facility] [place] Medical No Information 2 - 5 No Information [facility], [address], [place], [place], [id number], [place] tel:[phone] [facility] [place] Dental Encounter for dental examination and cleaning with abnormal findingsEncounter for dental exam and cleaning w/o abnormal findings Mar-04 25- 5 No Information [facility], [address], [place], [place], [id number], [place] tel:[phone] [facility] [place] Dental Encounter for dental examination and cleaning with abnormal findingsEncounter for dental exam and cleaning w/o abnormal findings Mar-04 21- 5 No Information [facility], [address], [place], [place], [id number], [place] tel:[phone] [facility] [place] Dental Encounter for dental examination and cleaning without abnormal findings 0 - 5 No Information [facility], [address], [place], [place], [id number], [place] tel:[phone] [facility], [place] No Information Mar-0 - 5 No Information [facility], [address], [place], [place], [id number], [place] tel:[phone] [facility], [place] No Information 0 - 5 No Information [facility], [address], [place], [place], [id number], [place] tel:[phone] [facility] Medical record abstraction (chief complaint)rig ht knee pain (chief complaint) Back painPain in right knee 5 [facility] NonRn. [address] [place] [address], [id number], [place]. tel:[phone] [facility], [address], [place], [place], [id number], [place] tel:[phone] [facility] Medical depression (chief complaint)raphael ulder/back/kn ee pain (chief complaint) Left shoulder painRight knee painRight ankle painMorbid obesity, unspecified obesity typeBMI 50.0-59.9, adultMajor depressive disorder, recurrent episode, moderateHyperlipi demia, unspecified hyperlipidemia 5 No Information [facility], [address], [place], [place], [id number], [place] tel:[phone] [facility] Medical record abstraction (chief complaint)ank le injury (chief complaint) Sprain of ankle, initial encounter 5 [facility] NonRn. [address] [place] [address], [id number], [place]. tel:[phone] [facility], [address], [place], [place], [id number], [place] tel:[phone] [facility], [place] No Information 5 No Information [facility], [address], [place], [place], [address], [place] tel:[phone] [facility], [place] No Information 5 No Information [facility], [address], [place], [place], [address], [place] tel:[phone] [facility], [place] No Information 5 No Information [facility], [address], [place], [place], [address], [place] tel:[phone] [facility], [place] No Information 5 No Information [facility], [address], [place], [place], [address], [place] tel:[phone] [facility] Medical No Information 5 Health Care Information [facility]. [address] [place] [address], [id number], . [facility], [address], [place], [place], [id number], [place] tel:[phone] [facility] Medical shoulder pain (chief complaint)R knee pain (chief complaint)upp er back/neck pain (chief complaint)dep ression (chief complaint) Right knee painLeft shoulder painCervical radiculopathyObes ityMajor depressionScreeni ng for hyperlipidemia 8- 5 No Information [facility], [address], [place], [place], [address], [place] tel:[phone] [facility], [place] No Information 3- 5 No Information [facility], [address], [place], [place], [id number], [place] tel:[phone] [facility], [place] No Information 8- 5 No Information [facility], [address], [place], [place], [id number], [place] tel:[phone] [facility], [place] No Information 0 4-201 5 No Information [facility], [address], [place], [place], [address], [place] tel:[phone] [facility] No Information 4-200 7 No Information [facility], [address], [place], [place], [address], [place] tel:[phone] [facility] Medical No Information 3 0-200 7 No Information [facility], [address], [place], [place], [id number], [place] tel:[phone] [facility] No Information 2 4-200 7 No Information Family History Family Member Type Diagnosis Age At Onset Mother Problem (finding) Fibromyalgia Mother Problem (finding) COVID (Cause Of ) Father Problem COVID Father Problem (finding) diabetes melli tus in first degree relative Immunizations Vaccine Date Status Comments Pfizer Bivalent 12yrs + administered Note : VIS given ; Source: New Immunization Record Moderna Booster administered Note: FAQ sh eet given ; Source: New Immunization Record Jackson Paz COVID19 administered Note : FAQ sheet given ; Source: New Immunization Record Td (adult), 5 Lf tetanus toxoid, preservative free, adsorbed administered Source: Other Regist ry Tdap administered Source: New Imm unization Record Payers Payer name Insurance type Covered libertarian ID Authoriza tion(s) [facility] Adult CI [id number] [facility] [id number] Coordinated [place] [facility] [id number] Coordinated Care unamia [facility] [id number] Coordinated Care unamia [facility] CI [id number] Social History Type Description Quantity Date Captured Comments Alcohol Use Details Unknown Caffeine Use Details Unknown Tobacco Use Status No Information Smoking Status No Information Sex Male Sexual Orientation Straight or heterosexual Gender Identity Male Chief Complaint And Reason For Visit No Information Plan Of Treatment Date Type Action Status Goal Lipid panel. Due on 023 due Goal GFR. Due on due Goal PRAPARE. Due on due Goal Colonoscopy. Due on 023 due Goal Sigmoidoscopy. Due on due Goal Self Management Goal. Due on due Goal Dilated eye exam. Due on Feb due Goal Hepatitis C Viru s (HCV) Antibody w/Reflex to Qualitative due Goal Td vaccine. Due on due Goal Hepatitis C screening due Goal HIV 1/O/2 Ag/Ab (4th Gen) W/ Hughes Reflex due Goal Tdap due Goal Depression screening. Due on due Goal FOBT. Due on due Goal PPSV23. Due on d ue Goal Influenza vaccine. Due on Oc due Goal Foot exam. Due on due Goal Urine Microalbumin. Due on due Goal Hemoglobin A1C. Due on due Goal Hemoglobin A1C. Due on due Goal Lipid panel. Due on due Goal Urine Microalbumin. Due on due Goal Dilated eye exam. Due on Feb due Goal Foot exam. Due on due Goal GFR. Due on due Goal Self Management Goal. Due on due Goal Td vaccine. Due on due Goal Tdap due Goal Colonoscopy. Due on due Goal Influenza vaccine. Due on Se due Goal PPSV23. Due on d ue Goal Hepatitis C screening due Goal Hepatitis C Viru s (HCV) Antibody w/Reflex to Qualitative due Goal HIV 1/O/2 Ag/Ab (4th Gen) W/ Hughes Reflex due Goal Depression screening. Due on due Goal PRAPARE. Due on due Goal FOBT. Due on due Goal Sigmoidoscopy. Due on due Goal Lipid panel. Due on due Goal Urine Microalbumin. Due on due Goal GFR. Due on due Goal Hepatitis C screening due Goal Tdap due Goal Hepatitis C Viru s (HCV) Antibody w/Reflex to Qualitative due Goal HIV 1/O/2 Ag/Ab (4th Gen) W/ Hughes Reflex due Goal Td vaccine. Due on due Goal Sigmoidoscopy. Due on due Goal Colonoscopy. Due on 023 due Goal FOBT. Due on due Goal Self Management Goal. Due on due Goal Foot exam. Due on due Goal Dilated eye exam. Due on Feb due Goal Hemoglobin A1C. Due on due Goal PRAPARE. Due on due Goal PPSV23. Due on d ue Goal Influenza vaccine. Due on due Goal Depression screening. Due on due Goal Urine Microalbumin. Due on due Goal Lipid panel. Due on 023 due Goal Hemoglobin A1C. Due on due Goal Foot exam. Due on due Goal Self Management Goal. Due on due Goal GFR. Due on due Goal PPSV23. Due on d ue Goal Influenza vaccine. Due on due Goal Dilated eye exam. Due on Feb due Goal HIV 1/O/2 Ag/Ab (4th Gen) W/ Hughes Reflex due Goal Hepatitis C screening due Goal Hepatitis C Viru s (HCV) Antibody w/Reflex to Qualitative due Goal Td vaccine. Due on due Goal Tdap due Goal Depression screening. Due on due Goal Sigmoidoscopy. Due on due Goal Colonoscopy. Due on 023 due Goal FOBT. Due on due Goal PRAPARE. Due on due Goal Self Management Goal. Due on due Goal GFR. Due on due Goal Hemoglobin A1C. Due on due Goal Td vaccine. Due on due Goal Tdap due Goal Hepatitis C screening due Goal PRAPARE. Due on due Goal Hepatitis C Viru s (HCV) Antibody w/Reflex to Qualitative due Goal Depression screening. Due on due Goal FOBT. Due on due Goal Colonoscopy. Due on 023 due Goal Sigmoidoscopy. Due on due Goal Influenza vaccine. Due on due Goal PPSV23. Due on d ue Goal Foot exam. Due on due Goal Dilated eye exam. Due on Feb due Goal Lipid panel. Due on due Goal Urine Microalbumin. Due on due Goal HIV 1/O/2 Ag/Ab (4th Gen) W/ Hughes Reflex. Due on due Goal PRAPARE. Due on due Goal Td vaccine. Due on due Goal Tdap due Goal Sigmoidoscopy. Due on due Goal FOBT. Due on due Goal Hepatitis C screening. Due o n due Goal Colonoscopy. Due on due Goal Foot exam. Due on due Goal Lipid panel. Due on due Goal Dilated eye exam. Due on Feb due Goal Urine Microalbumin. Due on due Goal GFR. Due on due Goal Hemoglobin A1C. Due on due Goal Self Management Goal. Due on due Goal Hepatitis C Viru s (HCV) Antibody w/Reflex to Qualitative due Goal HIV 1/O/2 Ag/Ab (4th Gen) W/ Hughes Reflex. Due on due Goal Influenza vaccine. Due on due Goal PPSV23. Due on d ue Goal Hepatitis C Virus (HCV) Anti body Hughes due Goal Depression screening. Due on due Goal Foot exam. Due on due Goal Dilated eye exam. Due on Feb due Goal Hemoglobin A1C. Due on due Goal GFR. Due on due Goal Urine Microalbumin. Due on due Goal Lipid panel. Due on 023 due Goal Hepatitis C Virus (HCV) Anti body Hughes due Goal PRAPARE. Due on due Goal Tdap due Goal Td vaccine. Due on due Goal HIV 1/O/2 Ag/Ab (4th Gen) W/ Hughes Reflex. Due on due Goal FOBT. Due on due Goal Sigmoidoscopy. Due on due Goal Colonoscopy. Due on 022 due Goal Self Management Goal. Due on due Goal Hepatitis C screening. Due o n due Goal Influenza vaccine. Due on due Goal PPSV23. Due on d ue Goal Hepatitis C Viru s (HCV) Antibody w/Reflex to Qualitative due Goal Depression screening. Due on due Goal Hepatitis C Virus (HCV) Anti body Hughes due Goal Depression screening. Due on due Goal PPSV23. Due on d ue Goal Influenza vaccine. Due on due Goal Lipid panel. Due on 023 due Goal Hemoglobin A1C. Due on due Goal Tdap due Goal HIV 1/O/2 Ag/Ab (4th Gen) W/ Hughes Reflex due Goal Hepatitis C Viru s (HCV) Antibody w/Reflex to Qualitative due Goal PRAPARE. Due on due Goal GFR. Due on due Goal Self Management Goal. Due on due Goal Dilated eye exam. Due on Feb due Goal Urine Microalbumin. Due on S due Goal Foot exam. Due on 3 due Goal Self Management Goal. Due on due Goal GFR. Due on due Goal Depression screening. Due on due Goal HIV 1/O/2 Ag/Ab (4th Gen) W/ Hughes Reflex due Goal PRAPARE. Due on due Goal Tdap due Goal Hepatitis C Viru s (HCV) Antibody w/Reflex to Qualitative due Goal Hepatitis C Virus (HCV) Anti body Hughes due Goal PPSV23. Due on d ue Goal Influenza vaccine. Due on Oc due Goal Dilated eye exam. Due on Oct due Goal Lipid panel. Due on 023 due Goal Urine Microalbumin. Due on S due Goal Hemoglobin A1C. Due on due Goal Foot exam. Due on 3 due Goal Tdap due Goal Hepatitis C Viru s (HCV) Antibody w/Reflex to Qualitative due Goal PRAPARE. Due on due Goal Depression screening. Due on due Goal PPSV23. Due on d ue Goal Influenza vaccine. Due on due Goal Dilated eye exam. Due on Oct due Goal Urine Microalbumin. Due on due Goal Self Management Goal. Due on due Goal Lipid panel. Due on 023 due Goal Foot exam. Due on due Goal GFR. Due on due Goal Hemoglobin A1C. Due on due Goal HIV 1/O/2 Ag/Ab (4th Gen) W/ Hughes Reflex due Goal Hepatitis C Virus (HCV) Anti body Hughes due Goal Hepatitis C Viru s (HCV) Antibody w/Reflex to Qualitative. Due on due Goal PRAPARE. Due on due Goal Hepatitis C Viru s (HCV) Antibody Hughes. Due on due Goal Urine Microalbumin. Due on due Goal Depression screening. Due on due Goal Influenza vaccine. Due on due Goal PPSV23. Due on d ue Goal Foot exam. Due on due Goal Dilated eye exam. Due on Oct due Goal Hemoglobin A1C. Due on due Goal Lipid panel. Due on 023 due Goal Self Management Goal. Due on due Goal GFR. Due on due Goal Tdap due Goal HIV 1/O/2 Ag/Ab (4th Gen) W/ Hughes Reflex. Due on due Goal PRAPARE. Due on due Goal Hemoglobin A1C. Due on due Goal Dilated eye exam. Due on Oct due Goal Tdap due Goal Foot exam. Due on due Goal HIV 1/O/2 Ag/Ab (4th Gen) W/ Hughes Reflex. Due on due Goal Hepatitis C Viru s (HCV) Antibody w/Reflex to Qualitative. Due on due Goal Hepatitis C Viru s (HCV) Antibody Hughes. Due on due Goal Influenza vaccine. Due on due Goal PPSV23. Due on d ue Goal Depression screening. Due on due Goal Lipid panel. Due on due Goal Urine Microalbumin. Due on S due Goal GFR. Due on due Goal Self Management Goal. Due on due Goal PRAPARE. Due on due Goal Tdap due Goal Depression screening. Due on due Goal Lipid panel. Due on due Goal Foot exam. Due on due Goal Hepatitis C Viru s (HCV) Antibody Hughes. Due on due Goal HIV 1/O/2 Ag/Ab (4th Gen) W/ Hughes Reflex. Due on due Goal Hepatitis C Viru s (HCV) Antibody w/Reflex to Qualitative. Due on due Goal PPSV23. Due on d ue Goal Influenza vaccine. Due on due Goal Self Management Goal. Due on due Goal Hemoglobin A1C. Due on due Goal GFR. Due on due Goal Urine Microalbumin. Due on due Goal Dilated eye exam. Due on Oct due Goal Dilated eye exam. Due on Oct due Goal Foot exam. Due on due Goal Depression screening. Due on due Goal PPSV23. Due on d ue Goal Lipid panel. Due on 022 due Goal Urine Microalbumin. Due on due Goal GFR. Due on due Goal Self Management Goal. Due on due Goal Hemoglobin A1C. Due on due Goal Tdap due Goal PRAPARE. Due on due Goal Influenza vaccine. Due on due Goal Hepatitis C Viru s (HCV) Antibody Hughes. Due on due Goal HIV 1/O/2 Ag/Ab (4th Gen) W/ Hughes Reflex. Due on due Goal Hepatitis C Viru s (HCV) Antibody w/Reflex to Qualitative. Due on due Goal PPSV23. Due on d ue Goal Influenza vaccine. Due on due Goal PRAPARE. Due on due Goal Foot exam. Due on due Goal HIV 1/O/2 Ag/Ab (4th Gen) W/ Hughes Reflex. Due on due Goal Hepatitis C Viru s (HCV) Antibody Hughes. Due on due Goal Hepatitis C Viru s (HCV) Antibody w/Reflex to Qualitative. Due on due Goal Lipid panel. Due on 022 due Goal Hemoglobin A1C. Due on due Goal GFR. Due on due Goal Urine Microalbumin. Due on due Goal Self Management Goal. Due on due Goal Dilated eye exam. Due on Oct due Goal Tdap due Goal Depression screening. Due on due Goal Hemoglobin A1C. Due on due Goal Tdap due Goal PRAPARE. Due on due Goal Foot exam. Due on due Goal Dilated eye exam. Due on Sep due Goal Hepatitis C Viru s (HCV) Antibody Hughes. Due on due Goal HIV 1/O/2 Ag/Ab (4th Gen) W/ Hughes Reflex. Due on due Goal Hepatitis C Viru s (HCV) Antibody w/Reflex to Qualitative. Due on due Goal Influenza vaccine. Due on due Goal PPSV23. Due on d ue Goal Depression screening. Due on due Goal Lipid panel. Due on due Goal Urine Microalbumin. Due on due Goal GFR. Due on due Goal Self Management Goal. Due on due Goal Foot exam. Due on due Goal Lipid panel. Due on due Goal Hemoglobin A1C. Due on due Goal GFR. Due on due Goal Urine Microalbumin. Due on due Goal Self Management Goal. Due on due Goal Influenza vaccine. Due on due Goal Dilated eye exam. Due on Sep due Goal PRAPARE. Due on due Goal Tdap due Goal Depression screening. Due on due Goal PPSV23. Due on d ue Goal HIV 1/O/2 Ag/Ab (4th Gen) W/ Hughes Reflex. Due on due Goal Hepatitis C Viru s (HCV) Antibody Hughes. Due on due Goal Hepatitis C Viru s (HCV) Antibody w/Reflex to Qualitative. Due on due Goal Urine Microalbumin. Due on due Goal GFR. Due on due Goal Dilated eye exam. Due on Sep due Goal Depression screening. Due on due Goal Influenza vaccine. Due on due Goal Lipid panel. Due on due Goal Hemoglobin A1C. Due on due Goal Self Management Goal. Due on due Goal Foot exam. Due on due Goal HIV 1/O/2 Ag/Ab (4th Gen) W/ Hughes Reflex. Due on due Goal Hepatitis C Viru s (HCV) Antibody Hughes. Due on due Goal Hepatitis C Viru s (HCV) Antibody w/Reflex to Qualitative. Due on due Goal PPSV23. Due on d ue Goal Tdap due Goal PRAPARE. Due on due Goal Foot exam. Due on due Goal Hepatitis C Viru s (HCV) Antibody w/Reflex to Qualitative. Due on due Goal Lipid panel. Due on due Goal Hemoglobin A1C. Due on due Goal Self Management Goal. Due on due Goal Urine Microalbumin. Due on due Goal GFR. Due on due Goal Dilated eye exam. Due on Sep due Goal PPSV23. Due on d ue Goal PRAPARE. Due on due Goal Tdap due Goal Depression screening. Due on due Goal HIV 1/O/2 Ag/Ab (4th Gen) W/ Hughes Reflex. Due on due Goal Hepatitis C Viru s (HCV) Antibody Hughes. Due on due Goal Influenza vaccine. Due on due Goal Lipid panel. Due on 022 due Goal Foot exam. Due on due Goal Self Management Goal. Due on due Goal PPSV23. Due on d ue Goal Hepatitis C Viru s (HCV) Antibody Hughes. Due on due Goal PRAPARE. Due on due Goal HIV 1/O/2 Ag/Ab (4th Gen) W/ Hughes Reflex. Due on due Goal Hepatitis C Viru s (HCV) Antibody w/Reflex to Qualitative. Due on due Goal Influenza vaccine. Due on due Goal Urine Microalbumin. Due on due Goal Depression screening. Due on due Goal GFR. Due on due Goal Hemoglobin A1C. Due on due Goal Tdap due Goal Dilated eye exam. Due on Sep due Goal Urine Microalbumin. Due on due Goal Hemoglobin A1C. Due on due Goal Depression screening. Due on due Goal Self Management Goal. Due on due Goal Lipid panel. Due on due Goal PPSV23. Due on d ue Goal GFR. Due on due Goal Influenza vaccine. Due on due Goal Dilated eye exam. Due on Sep due Goal Foot exam. Due on due Goal Tdap due Goal PRAPARE. Due on due Goal Hepatitis C Viru s (HCV) Antibody w/Reflex to Qualitative. Due on due Goal Hepatitis C Viru s (HCV) Antibody Hughes. Due on due Goal HIV 1/O/2 Ag/Ab (4th Gen) W/ Hughes Reflex. Due on due Goal Hepatitis C Viru s (HCV) Antibody w/Reflex to Qualitative. Due on due Goal Hepatitis C Viru s (HCV) Antibody Hughes. Due on due Goal HIV 1/O/2 Ag/Ab (4th Gen) W/ [place] Reflex. Due on due Goal Dilated eye exam. Due on Sep due Goal Foot exam. Due on due Goal Lipid panel. Due on due Goal Urine Microalbumin. Due on due Goal GFR. Due on due Goal Self Management Goal. Due on due Goal Hemoglobin A1C. Due on due Goal PRAPARE. Due on due Goal Tdap due Goal Depression screening. Due on due Goal PPSV23. Due on d ue Goal Influenza vaccine. Due on due Goal Influenza vaccine. Due on due Goal PRAPARE. Due on due Goal Tdap due Goal Foot exam. Due on due Goal Urine Microalbumin. Due on due Goal Self Management Goal. Due on due Goal GFR. Due on due Goal Lipid panel. Due on 022 due Goal Hepatitis C Viru s (HCV) Antibody w/Reflex to Qualitative. Due on due Goal Hemoglobin A1C. Due on due Goal Dilated eye exam. Due on Sep due Goal PPSV23. Due on d ue Goal Depression screening. Due on due Goal Hepatitis C Viru s (HCV) Antibody Hughes. Due on due Goal HIV 1/O/2 Ag/Ab (4th Gen) W/ [place] Reflex. Due on due Goal HIV 1/O/2 Ag/Ab (4th Gen) W/ [place] Reflex. Due on due Goal Hemoglobin A1C. Due on due Goal Dilated eye exam. Due on Sep due Goal PRAPARE. Due on due Goal Tdap due Goal Depression screening. Due on due Goal Hepatitis C Viru s (HCV) Antibody w/Reflex to Qualitative. Due on due Goal Hepatitis C Viru s (HCV) Antibody Hughes. Due on due Goal PPSV23. Due on d ue Goal Influenza vaccine. Due on due Goal Foot exam. Due on due Goal Urine Microalbumin. Due on due Goal Self Management Goal. Due on due Goal GFR. Due on due Goal Lipid panel. Due on due Goal Hepatitis C Viru s (HCV) Antibody w/Reflex to Qualitative. Due on due Goal Hepatitis C Viru s (HCV) Antibody Hughes. Due on due Goal Influenza vaccine. Due on due Goal Tdap due Goal Self Management Goal. Due on due Goal Foot exam. Due on due Goal Dilated eye exam. Due on Sep due Goal Urine Microalbumin. Due on S due Goal GFR. Due on due Goal Lipid panel. Due on due Goal Depression screening. Due on due Goal PRAPARE. Due on due Goal PPSV23. Due on d ue Goal Hemoglobin A1C. Due on due Goal Hepatitis C Viru s (HCV) Antibody Hughes. Due on due Goal Hepatitis C Viru s (HCV) Antibody w/Reflex to Qualitative. Due on due Goal Foot exam. Due on due Goal Lipid panel. Due on due Goal GFR. Due on due Goal Tdap due Goal PRAPARE. Due on due Goal Depression screening. Due on due Goal PPSV23. Due on d ue Goal Influenza vaccine. Due on due Goal Self Management Goal. Due on due Goal Dilated eye exam. Due on Sep due Goal Urine Microalbumin. Due on S due Goal Hemoglobin A1C. Due on due Goal Tdap due Goal Depression screening. Due on due Goal Hepatitis C Viru s (HCV) Antibody w/Reflex to Qualitative. Due on due Goal PPSV23. Due on d ue Goal Influenza vaccine. Due on due Goal Hemoglobin A1C. Due on due Goal Lipid panel. Due on due Goal Urine Microalbumin. Due on S due Goal Foot exam. Due on due Goal GFR. Due on due Goal PRAPARE. Due on due Goal Hepatitis C Viru s (HCV) Antibody Hughes. Due on due Goal Self Management Goal. Due on due Goal Dilated eye exam. Due on Sep due Goal GFR. Due on due Goal Self Management Goal. Due on due Goal Dilated eye exam. Due on Sep due Goal Lipid panel. Due on 022 due Goal Urine Microalbumin. Due on due Goal Foot exam. Due on due Goal Hemoglobin A1C. Due on due Goal PPSV23. Due on d ue Goal PRAPARE. Due on due Goal Tdap due Goal Depression screening. Due on due Goal Hepatitis C Viru s (HCV) Antibody Hughes. Due on due Goal Hepatitis C Viru s (HCV) Antibody w/Reflex to Qualitative. Due on due Goal Influenza vaccine. Due on due Goal Hemoglobin A1C. Due on due Goal Urine Microalbumin. Due on A due Goal Self Management Goal. Due on due Goal Dilated eye exam. Due on Sep due Goal Foot exam. Due on due Goal Depression screening. Due on due Goal Tdap due Goal Hepatitis C Viru s (HCV) Antibody Hughes. Due on due Goal Hepatitis C Viru s (HCV) Antibody w/Reflex to Qualitative. Due on due Goal PRAPARE. Due on due Goal Influenza vaccine. Due on due Goal Lipid panel. Due on due Goal GFR. Due on due Goal Foot exam. Due on due Goal Hemoglobin A1C. Due on due Goal Self Management Goal. Due on due Goal Urine Microalbumin. Due on A due Goal Lipid panel. Due on due Goal Hepatitis C Viru s (HCV) Antibody Hughes. Due on due Goal Hepatitis C Viru s (HCV) Antibody w/Reflex to Qualitative. Due on due Goal Influenza vaccine. Due on due Goal PPSV23. Due on d ue Goal Tdap due Goal PRAPARE. Due on due Goal Depression screening. Due on due Goal Self Management Goal. Due on due Goal Urine Microalbumin. Due on A due Goal Lipid panel. Due on due Goal Foot exam. Due on due Goal Dilated eye exam. Due on Jun due Goal Hemoglobin A1C. Due on due Goal Hepatitis C Viru s (HCV) Antibody Hughes. Due on due Goal Hepatitis C Viru s (HCV) Antibody w/Reflex to Qualitative. Due on due Goal Tdap due Goal PRAPARE. Due on due Goal Depression screening. Due on due Goal GFR. Due on due Goal Influenza vaccine. Due on due Goal PPSV23. Due on d ue Goal Hemoglobin A1C. Due on due Goal Influenza vaccine. Due on due Goal Hepatitis C Viru s (HCV) Antibody Hughes. Due on due Goal Hepatitis C Viru s (HCV) Antibody w/Reflex to Qualitative. Due on due Goal PPSV23. Due on d ue Goal Foot exam. Due on due Goal Depression screening. Due on due Goal GFR. Due on due Goal PRAPARE. Due on due Goal Tdap due Goal Dilated eye exam. Due on Jun due Goal Self Management Goal. Due on due Goal Urine Microalbumin. Due on A due Goal Lipid panel. Due on 021 due Goal GFR. Due on due Goal Urine Microalbumin. Due on A due Goal Hepatitis C Viru s (HCV) Antibody w/Reflex to Qualitative. Due on due Goal Hepatitis C Viru s (HCV) Antibody Hughes. Due on due Goal Influenza vaccine. Due on due Goal Dilated eye exam. Due on Jun due Goal Self Management Goal. Due on due Goal Lipid panel. Due on due Goal Hemoglobin A1C. Due on due Goal Foot exam. Due on due Goal Tdap due Goal PRAPARE. Due on due Goal Depression screening. Due on due Goal PPSV23. Due on d ue Goal Dietary manageme nt education, guidance, and counseling completed Goal GFR. Due on due Goal PRAPARE. Due on due Goal Tdap due Goal Depression screening. Due on due Goal Lipid panel. Due on due Goal Foot exam. Due on due Goal Urine Microalbumin. Due on A due Goal Hemoglobin A1C. Due on due Goal Dilated eye exam. Due on Jun due Goal Self Management Goal. Due on due Goal PPSV23. Due on d ue Goal Hepatitis C Viru s (HCV) Antibody Hughes. Due on due Goal Hepatitis C Viru s (HCV) Antibody w/Reflex to Qualitative. Due on due Goal Influenza vaccine. Due on due Goal Lipid panel. Due on 021 due Goal Depression screening. Due on due Goal Tdap due Goal PRAPARE. Due on due Goal Self Management Goal. Due on due Goal Hemoglobin A1C. Due on due Goal Foot exam. Due on 0 due Goal Hepatitis C Viru s (HCV) Antibody w/ Reflex to Qualitative. Due on due Goal Hepatitis C Viru s (HCV) Antibody w/Reflex to Qualitative. Due on due Goal Hepatitis C Viru s (HCV) Antibody Hughes. Due on due Goal Influenza vaccine. Due on due Goal Dilated eye exam. Due on Jun due Goal Urine Microalbumin. Due on due Goal GFR. Due on due Goal Tdap due Goal PRAPARE. Due on due Goal Self Management Goal. Due on due Goal Hemoglobin A1C. Due on due Goal Foot exam. Due on 0 due Goal Hepatitis C Viru s (HCV) Antibody w/ Reflex to Qualitative. Due on due Goal Dilated eye exam. Due on Jun due Goal Urine Microalbumin. Due on due Goal Depression screening. Due on due Goal Lipid panel. Due on due Goal PPSV23. Due on d ue Goal Influenza vaccine. Due on due Goal GFR. Due on due Goal Self Management Goal. Due on due Goal Dilated eye exam. Due on Jun due Goal Hemoglobin A1C. Due on due Goal Urine Microalbumin. Due on A due Goal Lipid panel. Due on due Goal Foot exam. Due on 0 due Goal Hepatitis C Viru s (HCV) Antibody w/ Reflex to Qualitative. Due on due Goal PRAPARE. Due on due Goal Tdap due Goal Depression screening. Due on due Goal Foot exam. Due on 0 due Goal Urine Microalbumin. Due on A due Goal Hemoglobin A1C. Due on due Goal Self Management Goal. Due on due Goal Dilated eye exam. Due on Jun due Goal Tdap due Goal Depression screening. Due on due Goal Influenza vaccine. Due on due Goal Lipid panel. Due on due Goal PRAPARE. Due on due Goal Hepatitis C Viru s (HCV) Antibody w/ Reflex to Qualitative. Due on due Goal GFR. Due on due Goal Depression screening. Due on due Goal Tdap due Goal PRAPARE. Due on due Goal Lipid panel. Due on due Goal Urine Microalbumin. Due on A due Goal Influenza vaccine. Due on Ma due Goal Foot exam. Due on 0 due Goal Hemoglobin A1C. Due on due Goal Dilated eye exam. Due on Jun due Goal Self Management Goal. Due on due Goal Self Management Goal. Due on due Goal Foot exam. Due on 0 due Goal Tdap due Goal Lipid panel. Due on due Goal Depression screening. Due on due Goal Urine Microalbumin. Due on A due Goal Hemoglobin A1C. Due on due Goal Dilated eye exam. Due on Jun due Goal PRAPARE. Due on due Goal Influenza vaccine. Due on Ap due Goal GFR. Due on due Goal PRAPARE. Due on due Goal Influenza vaccine. Due on Ma due Goal Urine Microalbumin. Due on A due Goal Dilated eye exam. Due on Jun due Goal Foot exam. Due on 0 due Goal Hemoglobin A1C. Due on due Goal Tdap due Goal Self Management Goal. Due on due Goal Lipid panel. Due on due Goal Depression screening. Due on due Goal GFR. Due on due Goal Self Management Goal. Due on due Goal Lipid panel. Due on due Goal Foot exam. Due on 0 due Goal Dilated eye exam. Due on Jun due Goal Depression screening. Due on due Goal Urine Microalbumin. Due on A due Goal Hemoglobin A1C. Due on due Goal PRAPARE. Due on due Goal Tdap due Goal Influenza vaccine. Due on due Goal GFR. Due on due Goal Hemoglobin A1C. Due on due Goal Urine Microalbumin. Due on A due Goal Lipid panel. Due on due Goal Dilated eye exam. Due on Jun due Goal Tdap due Goal PRAPARE. Due on due Goal Depression screening. Due on due Goal Influenza vaccine. Due on due Goal Foot exam. Due on 0 due Goal Self Management Goal. Due on due Goal GFR. Due on due Goal Urine Microalbumin. Due on A due Goal Lipid panel. Due on due Goal Self Management Goal. Due on due Goal Hemoglobin A1C. Due on due Goal Dilated eye exam. Due on Jun due Goal Foot exam. Due on 0 due Goal Tdap due Goal PRAPARE. Due on due Goal Depression screening. Due on due Goal Influenza vaccine. Due on due Goal Foot exam. Due on 0 due Goal Dilated eye exam. Due on Jun due Goal Hemoglobin A1C. Due on due Goal Tdap due Goal PRAPARE. Due on due Goal Depression screening. Due on due Goal Influenza vaccine. Due on due Goal GFR. Due on due Goal Urine Microalbumin. Due on A due Goal Self Management Goal. Due on due Goal Lipid panel. Due on due Goal GFR. Due on due Goal Foot exam. Due on 0 due Goal PRAPARE. Due on due Goal Tdap due Goal Depression screening. Due on due Goal Influenza vaccine. Due on due Goal Urine Microalbumin. Due on A due Goal Self Management Goal. Due on due Goal Lipid panel. Due on due Goal Dilated eye exam. Due on Jun due Goal Hemoglobin A1C. Due on due Goal GFR. Due on due Goal Tdap due Goal Depression screening. Due on due Goal Self Management Goal. Due on due Goal Hemoglobin A1C. Due on due Goal Urine Microalbumin. Due on due Goal Lipid panel. Due on due Goal Dilated eye exam. Due on May due Goal Influenza vaccine. Due on due Goal PRAPARE. Due on due Goal Foot exam. Due on due Goal GFR. Due on due Goal Depression screening. Due on due Goal Tdap due Goal Urine Microalbumin. Due on due Goal Lipid panel. Due on due Goal Dilated eye exam. Due on May due Goal PRAPARE. Due on due Goal Influenza vaccine. Due on due Goal Self Management Goal. Due on due Goal Foot exam. Due on due Goal Hemoglobin A1C. Due on due Goal Tdap due Goal Lipid panel. Due on due Goal Urine Microalbumin. Due on due Goal Dilated eye exam. Due on May due Goal Self Management Goal. Due on due Goal Foot exam. Due on due Goal Hemoglobin A1C. Due on due Goal Influenza vaccine. Due on due Goal Depression screening. Due on due Goal GFR. Due on due Goal Urine Microalbumin. Due on due Goal GFR. Due on due Goal Foot exam. Due on due Goal Hemoglobin A1C. Due on due Goal Dilated eye exam. Due on May due Goal Self Management Goal. Due on due Goal Depression screening. Due on due Goal Influenza vaccine. Due on due Goal HIV 1/O/2 Ag/Ab (4th Gen) W/ Hughes Reflex. Due on due Goal Lipid panel. Due on due Goal Pneumococcal vaccine. Due on due Goal Pneumococcal vaccine. Due on due Goal Influenza vaccine. Due on due Goal Lipid panel. Due on due Goal Urine Microalbumin. Due on due Goal Foot exam. Due on due Goal Hemoglobin A1C. Due on due Goal GFR. Due on due Goal Self Management Goal. Due on due Goal Dilated eye exam. Due on May due Goal Depression screening. Due on due Goal Dental exam. Due on due Goal Self Management Goal. Due on due Goal Dental exam. Due on due Goal Influenza vaccine. Due on due Goal Lipid panel. Due on due Goal Urine Microalbumin. Due on due Goal GFR. Due on due Goal Hemoglobin A1C. Due on due Goal Foot exam. Due on due Goal Dilated eye exam. Due on May due Goal Depression screening. Due on due Goal Pneumococcal vaccine. Due on due Goal Self Management Goal. Due on due Goal Urine Microalbumin. Due on due Goal Dilated eye exam. Due on May due Goal Depression screening. Due on due Goal Dental exam. Due on due Goal Pneumococcal vaccine. Due on due Goal GFR. Due on due Goal Foot exam. Due on 9 due Goal Hemoglobin A1C. Due on due Goal Lipid panel. Due on due Goal Lipid panel. Due on due Goal Hemoglobin A1C. Due on due Goal Foot exam. Due on due Goal GFR. Due on due Goal Urine Microalbumin. Due on due Goal Dilated eye exam. Due on May due Goal Depression screening. Due on due Goal Dental exam. Due on due Goal Pneumococcal vaccine. Due on due Goal Self Management Goal. Due on due Goal Foot exam. Due on due Goal GFR. Due on due Goal Urine Microalbumin. Due on due Goal Self Management Goal. Due on due Goal Dental exam. Due on due Goal Lipid panel. Due on due Goal Hemoglobin A1C. Due on due Goal Dilated eye exam. Due on May due Goal Depression screening. Due on due Goal Pneumococcal vaccine. Due on due Goal Depression screening. Due on due Goal Lipid panel. Due on due Goal Foot exam. Due on due Goal Hemoglobin A1C. Due on due Goal GFR. Due on due Goal Urine Microalbumin. Due on due Goal Dilated eye exam. Due on May due Goal Self Management Goal. Due on due Goal Dental exam. Due on due Goal Pneumococcal vaccine. Due on due Goal Hemoglobin A1C. Due on due Goal Foot exam. Due on due Goal GFR. Due on due Goal Urine Microalbumin. Due on due Goal Dilated eye exam. Due on May due Goal Self Management Goal. Due on due Goal Dental exam. Due on due Goal Lipid panel. Due on due Goal Pneumococcal vaccine. Due on due Goal Self Management Goal. Due on due Goal Pneumococcal vaccine. Due on due Goal Self Management Goal. Due on due Goal Self Management Goal. Due on due Goal Pneumococcal vaccine. Due on due Goal Foot exam. Due on due Goal Self Management Goal. Due on due Goal Pneumococcal vaccine. Due on due Goal Foot exam. Due on due Goal Foot exam. Due on due Goal Hemoglobin A1C. Due on due Goal Pneumococcal vaccine. Due on due Goal Urine Microalbumin. Due on due Goal Self Management Goal. Due on due Goal Urine Microalbumin. Due on due Goal Hemoglobin A1C. Due on due Goal Pneumococcal vaccine. Due on due Goal Self Management Goal. Due on due Goal Foot exam. Due on due Goal Self Management Goal. Due on due Goal Urine Microalbumin. Due on due Goal Pneumococcal vaccine. Due on due Goal Dilated eye exam. Due on Apr due Goal Foot exam. Due on due Goal Foot exam. Due on due Goal Pneumococcal vaccine. Due on due Goal Urine Microalbumin. Due on due Goal Self Management Goal. Due on due Goal Dilated eye exam. Due on Apr due Goal Influenza vaccine. Due on Ma due Goal Influenza vaccine. Due on due Goal Lifestyle education regardin g diet completed Goal Influenza vaccine. Due on due Goal Dietary manageme nt education, guidance, and counseling completed Goal Influenza vaccine. Due on No due Goal Lifestyle education regardin g diet completed Goal Influenza vaccine. Due on No due Goal Influenza vaccine. Due on Oc due Goal Tdap due Goal Influenza vaccine. Due on Au due Goal Lifestyle education regardin g diet completed Goal Dietary manageme nt education, guidance, and counseling completed Goal Tdap due Goal Td vaccine. Due on due Goal Tdap. Due on due Goal Td vaccine. Due on due Goal Tdap. Due on due Goal Tdap. Due on due Goal Td vaccine. Due on due Goal Td vaccine. Due on due Goal Tdap. Due on due Goal Tdap. Due on due Goal Td vaccine. Due on due Goal Td vaccine. Due on due Goal Tdap. Due on due Goal Tdap. Due on due Goal Td vaccine. Due on due Goal Tdap. Due on due Goal Td vaccine. Due on due Referral Ordered: Remote Dx Retinal Imaging ordered Referral Ordered: Fundus photography ordered Referral Ordered: Referrals: Behavioral Health. Location: [facility]. Evaluate and treat ordered Referral Ordered: Referrals: Orthopedic Surgery. Routine Evaluate and treat ordered Referral Ordered: Referrals: Sleep Medicine. Routine Evaluate and treat Appointment date/timeframe: 10/29/2016 ordered Referral Ordered: Referrals: Orthopedic Surgery. Evaluate and treat ordered Referral Ordered: MRI, upper extremity joint, w/o contrast Left shoulder ordered Referral Ordered: Referrals: Behavioral Health. Evaluate and treat ordered Referral Ordered: Xray exam, Shoulder, AP Internal & External Rotation Left shoulder ordered Referral Ordered: Xray exam, Knee, AP & Lateral Right knee ordered Referral Referred To: Physical Therapy Ordered: Referrals: Physical Therapy. Evaluate and treat ordered Referral Ordered: X-ray exam, cervical spine, 2-3 views Bilateral spine, cervical ordered Patient Education Tooth Decay: Care Instr uctions completed Patient Education Tooth Decay: Care Instr uctions completed Patient Education Tooth Decay: Care Instr uctions completed Patient Education Periodontal Conditions: Care Instructi completed Patient Education Tooth Extraction: Care Instructions completed Patient Education [place] Tooth Extraction : What to Expec completed Patient Education [place] Tooth Extraction : What to Expec completed Patient Education Learning About Dental C are completed History Of Present Illness Encounter Date Complaint History Of Prese nt Illness hypertension Comorbid conditi ons include diabetes mellitus. It is currently stable. Risk factors include depression, male gender, obesity and sleep apnea. Pertinent negatives include fatigue, headache and nausea. Additional information: using CPAP when he 'remembers' diabetes The problem is s table. Risk factors include: family history diabetes mellitus, obesity and sedentary lifestyle. Client is compliant with using medication, and follow-up. Managing with: Diet. Comorbidity: Hypertension. Pertinent negatives include diarrhea. 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 depression This is a follow up visit. There is improvement of initial symptoms. The client reports functioning as very difficult. The Global Assessment of Functioning Scale (GAF) = 53. The client presents with depressed mood and diminished interest or pleasure but denies fatigue or thoughts of or suicide. The client denies any headache and nausea. Additional information: continues to meet with Jose. other Hasn't had aller gy meds in over a month - levocetirizine was not covered. Reports he has plenty of Flonase at homeContinues famotidine for reflux, it is effective covid-19 Have you or any member of your household had:Been tested for COVID-19 in the past 10 days and notified of the results? Nohave had a POSITIVE COVID 19 test w/in the past 10 days? NoDo you have a fever? NoDo you have a cough? NoDo you have a runny nose or congestion? NoDo you have a sore throat? Nohave you been exposed to anyone who has been diagnosed with lab confirmed case of COVID-19 ? NoAre you experiencing difficulty breathing? No. diabetes Risk factors inc lude: family history diabetes mellitus, obesity and sedentary lifestyle. Managing with: Diet. Comorbidity: Hypertension. Pertinent negatives include chest pain, diarrhea and dyspnea. Additional information: continues to use Trulicity weekly. depression This is a follow up visit. The client reports functioning as very difficult. The Global Assessment of Functioning Scale (GAF) = 53. The client denies any headache, nausea and vomiting. Additional information: is working through [employer] at home prior to a move to the [facility]. hypertension Comorbid conditi ons include diabetes mellitus. It is currently stable. Risk factors include depression, male gender, obesity and sleep apnea. Pertinent negatives include chest pain, dyspnea, headache, nausea and vomiting. other KAMALJIT - is working on increasing frequency of CPAP use, currently using 1-2 nights weekly COVID 19 1. Been tested f or COVID-19 in the past 10 days and have not been notified of results? no2. Have had a POSITIVE COVID-19 test within the past 10 days? no3. Do you have a fever? no4. Do you have a cough? no5. Do you have runny nose or congestion? no6. Do you have a sore throat? no7. Have you been exposed to anybody who has been diagnosed with a laboratory confirmed case of COVID-19? no8. Are you currently experiencing difficulty breathing?. no COVID_19 Screen Screening:Curren t fever: No.Current cough: No.Exposure to person with lab confirmed positive COVID-19: No.Travel during past two weeks: No.Difficulty breathing: No.Living in a correction, encampment, or other group facility: No.Age over 65: No.Additional Info: Have you or any member of your household had:Chills? noSore Throat? noBody aches/muscle pain? noHeadaches? noFatigue? noNew loss of taste or smell? noNausea/Vomiting? noDiarrhea? no diabetes The problem is s table. Risk factors include: family history diabetes mellitus, obesity and sedentary lifestyle. Patient is compliant with using medication, and follow-up. Managing with: Diet. Comorbidity: Hypertension. Pertinent negatives include chest pain, diarrhea and dyspnea. Additional information: Continues with weekly Trulicity injections. Has not been monitoring glucose. depression This is a follow up visit. The client reports functioning as very difficult. The Global Assessment of Functioning Scale (GAF) = 53. The client presents with depressed mood, difficulty concentrating, diminished interest or pleasure, fatigue and feelings of guilt but denies thoughts of or suicide. The client denies any headache, nausea and vomiting. Additional information: has been speaking with ALIREZA Garcia, regularly which has been helpful. This month is the one-year anniversary of his parent's deathIs considering moving to [place], where his sister lives. hypertension Comorbid conditi ons include diabetes mellitus. It is currently stable. Risk factors include depression, male gender, obesity and sleep apnea. Associated symptoms include fatigue. Pertinent negatives include chest pain, dyspnea, headache, nausea and vomiting. Additional information: still not using CPAP regularly retinal eye exam Allergy symptoms (comments) has had several recent ER visits - some due to environmental allergies, one was a reaction to cough syrup containing promethazine - symptoms have resolved with treatment depression This is a follow up visit. There is improvement of initial symptoms. The client reports functioning as somewhat difficult. The Global Assessment of Functioning Scale (GAF) = 53. The client presents with diminished interest or pleasure and fatigue but denies feelings of guilt or thoughts of or suicide. The client denies any headache, nausea and vomiting. Additional information: speaking with Jose regularly - this has been beneficial. Allergy symptoms The client pres ents with post nasal drainage. Symptoms are constant. Symptoms are improved with allergy meds. The client denies cough, headache, nasal drainage and nausea. Additional information: asks for trial of levocetirizine. Has not been using Flonase - doesn't like the taste. COVID_19 Screen Screening:Curren t fever: No.Current cough: No.Exposure to person with lab confirmed positive COVID-19: No.Travel during past two weeks: No.Difficulty breathing: No.Living in a correction, encampment, or other group facility: No.Age over 65: No.Additional Info: Have you or any member of your household had:Chills? noSore Throat? noBody aches/muscle pain? onHeadaches? noFatigue? noNew loss of taste or smell? noNausea/Vomiting? noDiarrhea? no hypertension Comorbid conditi ons include diabetes mellitus. It is currently stable. Risk factors include depression, male gender, obesity and sleep apnea. Pertinent negatives include chest pain, dyspnea, headache, nausea and vomiting. Additional information: continues to not use CPAP diabetes The problem is s table. Risk factors include: family history diabetes mellitus, obesity and sedentary lifestyle. Patient is compliant with using medication, and follow-up. Managing with: Diet. Comorbidity: Hypertension. Pertinent negatives include chest pain, diarrhea and dyspnea. COVID_19 Screen Screening:Curren t fever: No.Current cough: No.Exposure to person with lab confirmed positive COVID-19: No.Travel during past two weeks: No.Difficulty breathing: No.Healthcare worker or road marker: No.[facility] or [facility] facility: No.Living in a correction, encampment, or other group facility: No.Age over 65: No.Underlying illnesses or risks: Yes.Additional Risks: Diabetes Mellitus and Severe obesity (BMI > 40).Additional Info: Have you or any member of your household had:Chills? noSore Throat? noBody aches/muscle pain? noHeadaches? noFatigue? noNew loss of taste or smell? noNausea/Vomiting? noDiarrhea? no hypertension Comorbid conditi ons include diabetes mellitus. Risk factors include depression, male gender, obesity and sleep apnea. Associated symptoms include fatigue. Pertinent negatives include chest pain, dyspnea, headache, nausea and vomiting. Additional information: taking lisinopril nightly, has not been using CPAP diabetes The problem is i mproving. Risk factors include: family history diabetes mellitus, obesity and sedentary lifestyle. Patient is compliant with using medication, and follow-up. Managing with: Diet. Comorbidity: Hypertension. Pertinent negatives include chest pain, diarrhea, dyspnea and hypoglycemic episodes. Additional information: Has been using Trulicity as prescribed. depression This is a follow up visit. There is worsening of previously reported symptoms. The client reports functioning as extremely difficult. The Global Assessment of Functioning Scale (GAF) = 53. The client presents with depressed mood, difficulty concentrating, difficulty falling asleep, difficulty staying asleep, diminished interest or pleasure, fatigue and feelings of guilt but denies thoughts of or suicide. The client's risk factors include of a friend or loved one and financial worries. The client denies any headache, nausea and vomiting. Additional information: working through cleaning out house after father in March. meeting with regularly. imms hypertension Comorbid conditi ons include diabetes mellitus. It is currently stable. Risk factors include depression, male gender, obesity and sleep apnea. Associated symptoms include fatigue. Pertinent negatives include chest pain, dyspnea, headache, nausea and vomiting. diabetes The problem is i mproving. Risk factors include: family history diabetes mellitus, obesity and sedentary lifestyle. Patient is compliant with using medication, and follow-up. Managing with: Diet. Comorbidity: Hypertension. Pertinent negatives include chest pain, diarrhea, dyspnea and hypoglycemic episodes. Additional information: reports has recently been 'stress eating' - out of [employer] for the past month. depression This is a follow up visit. There is worsening of previously reported symptoms. The client reports functioning as very difficult. The Global Assessment of Functioning Scale (GAF) = 53. The client presents with depressed mood, difficulty concentrating, difficulty falling asleep, difficulty staying asleep, diminished interest or pleasure, fatigue and feelings of guilt but denies thoughts of or suicide. The client's risk factors include of a friend or loved one and history of depression. The client denies any headache, nausea and vomiting. Additional information: dad from [place] in January (mom had over the summer). His sister lives in [place] but has been helping with some of the legal stuff. He is overwhelmed with needing to clean out the house - does have friends who have been helping. COVID_19 Screen Screening:Curren t fever: No.Current cough: No.Exposure to person with lab confirmed positive COVID-19: No.Travel during past two weeks: No.Difficulty breathing: No.Healthcare worker or road marker: No.[facility] or [facility] facility: No.Living in a correction, encampment, or other group facility: No.Age over 65: No.Underlying illnesses or risks: Yes.Additional Risks: Diabetes Mellitus, Severe obesity (BMI > 40), Chronic lung disease including asthma, COPD, emphysema and chronic bronchitis.Additional Info: Have you or any member of your household had:Chills? noSore Throat? noBody aches/muscle pain? yesHeadaches? noFatigue? noNew loss of taste or smell? noNausea/Vomiting? noDiarrhea? no COVID_19 Screen Screening:Curren t fever: No.Current cough: No.Exposure to person with lab confirmed positive COVID-19: No.Travel during past two weeks: No.Difficulty breathing: No.Healthcare worker or road marker: No.[facility] or [facility] P[facility] facility: No.Living in a correction, encampment, or other group facility: No.Age over 65: No.Underlying illnesses or risks: Yes.Additional Risks: Diabetes Mellitus, Severe obesity (BMI > 40), Chronic lung disease including asthma, COPD, emphysema and chronic bronchitis.Additional Info: Have you or any member of your household had:Chills? noSore Throat? noBody aches/muscle pain? noHeadaches? noFatigue? noNew loss of taste or smell? noNausea/Vomiting? noDiarrhea? no diabetes The problem is s table. Risk factors include: family history diabetes mellitus, obesity and sedentary lifestyle. Patient is compliant with using medication, and follow-up. He Has been managed with diet. Comorbidity: Hypertension. Pertinent negatives include chest pain, diarrhea, dyspnea and hypoglycemic episodes. Additional information: on the weekends and walks around with friends. Forgets to use Trulicity every week. hypertension Comorbid conditi ons include diabetes mellitus. It is currently stable. Risk factors include depression, male gender, obesity and sleep apnea. Pertinent negatives include chest pain, dyspnea, headache, nausea and vomiting. Additional information: has not been using CPAP depression This is a follow up visit. The patient reports functioning as very difficult. The Global Assessment of Functioning Scale (GAF) = 53. The patient presents with depressed mood, difficulty concentrating, difficulty falling asleep, difficulty staying asleep, diminished interest or pleasure and fatigue but denies thoughts of or suicide. The patient denies any headache, nausea and vomiting. Additional information: Mom last week - he had not seen her in 5 years but had been in touch over the phone. Reports doing okMood is stable - only using trazodone as neededWorking with BH on anger. Retinal Eye Exam imms depression This is a follow up visit. The patient reports functioning as very difficult. The Global Assessment of Functioning Scale (GAF) = 53. The patient presents with depressed mood, difficulty concentrating, difficulty falling asleep, difficulty staying asleep, diminished interest or pleasure, fatigue and feelings of guilt but denies thoughts of or suicide. The patient denies any headache, nausea and vomiting. Allergy symptoms The patient pre sents with post nasal drainage. The patient is also experiencing cough. The patient denies headache, nasal drainage and nausea. Additional information: has been coughing at night. Seen in the ER 09/01 - was told it was related to post nasal drainage. COVID_19 Screen Screening:Curren t fever: No.Current cough: Yes.Exposure to person with lab confirmed positive COVID-19: No.Travel during past two weeks: No.Difficulty breathing: No.Healthcare worker or road marker: No.[facility] or [facility] facility: No.Living in a correction, encampment, or other group facility: No.Age over 65: No.Underlying illnesses or risks: Yes.Additional Risks: Diabetes Mellitus, Severe obesity (BMI > 40), Chronic lung disease including asthma, COPD, emphysema and chronic bronchitis.Additional Info: Have you or any member of your household had:Chills? noSore Throat? noBody aches/muscle pain? noHeadaches? noFatigue? noNew loss of taste or smell? noNausea/Vomiting? noDiarrhea? no diabetes The problem is s table. Risk factors include: family history diabetes mellitus, obesity and sedentary lifestyle. Patient is compliant with follow-up. He Has been managed with diet. Comorbidity: Hypertension. Pertinent negatives include chest pain, diarrhea and dyspnea. Additional information: Used Bydureon for one month and then no longer covered. Switched to Victoza which patient declined as it was daily. Needs PA for Trulicity. hypertension It is currently stable. Risk factors include depression, male gender, obesity and sleep apnea. Pertinent negatives include chest pain, dyspnea, headache, nausea and vomiting. COVID_19 Screen Screening:Curren t fever: No.Current cough: No.Exposure to person with lab confirmed positive COVID-19: No.Travel during past two weeks: No.Difficulty breathing: No.Healthcare worker or road marker: No.[facility]cc or [facility] P[facility] Care facility: No.Living in a correction, encampment, or other group facility: No.Age over 65: No.Underlying illnesses or risks: Yes.Additional Risks: Diabetes Mellitus, Chronic lung disease including asthma, COPD, emphysema and chronic bronchitis.Additional Info: Have you or any member of your household had:Chill's? noSore throat? noBody aches/muscle pain? noHeadache? noFatigue? noNew loss of taste or smell? noNausea/vomiting?: noDiarrhea?: no [facility] evaluation Patient reports original disability pursued for left shoulder pain - that is now rare.Reports bilateral knee pain, at times - mostly expresses concern/anxiety that these 'joint problems' will worsen with a regular work scheduleDenies any pain todayReports ongoing effort to lose weightPsychiatric evaluation was previously completed by clinical psychologist at the clinic COVID_19 Screen Screening:Curren t fever: No.Current cough: No.Exposure to person with lab confirmed positive COVID-19: No.Travel during past two weeks: No.Difficulty breathing: No.Healthcare worker or road marker: No.[facility]cc or [facility] P[facility] Care facility: No.Living in a correction, encampment, or other group facility: No.Age over 65: No.Underlying illnesses or risks: Yes.Additional Risks: Diabetes Mellitus, Severe obesity (BMI > 40), Chronic lung disease including asthma, COPD, emphysema and chronic bronchitis.Additional Info: Have you or any member of your household had:Chills? noSore Throat? noBody aches/muscle pain? noHeadaches? noFatigue? noNew loss of taste or smell? noNausea/Vomiting? noDiarrhea? no depression This is a follow up visit. There is worsening of previously reported symptoms. The patient reports functioning as somewhat difficult. The Global Assessment of Functioning Scale (GAF) = 53. The patient presents with depressed mood, difficulty concentrating, difficulty falling asleep, difficulty staying asleep, diminished interest or pleasure, fatigue and feelings of guilt but denies thoughts of or suicide. The patient denies any headache, nausea and vomiting. Additional information: I'm a little down in the dumps because things aren't going my way - is upset as he hasn't [facility] are fine. diabetes The problem is s table. Risk factors include: family history diabetes mellitus, obesity and sedentary lifestyle. Patient is compliant with follow-up. Patient did not use medication, or education materials. He Has been managed with diet. Comorbidity: Hypertension. Pertinent negatives include chest pain, diarrhea and dyspnea. Obesity Associated sympt oms include fatigue. Pertinent negatives include abdominal pain, constipation or headache. Additional information: The patient spends 20 hours per week with the television and computer. hasn't used CPAP in the past month - reports he 'spaces' using it. diabetes (comments) reports he i s surprised by weight gain - thought he had been losing weight, has been changing his snack foods to healthier options hypertension It is currently stable. Risk factors include depression, male gender, obesity and sleep apnea. Associated symptoms include fatigue. Pertinent negatives include chest pain, dyspnea, headache, nausea and vomiting. Shoulder Pain The problem is r esolved. Location: shoulder. Associated symptoms include difficulty initiating sleep. Hand Dominance: right. Additional information: pain has resolved at this time - requests referral be cancelled. diabetes (comments) Denies notic ing weight gain until he was weighed in the ER recently COVID_19 Screen Screening:Curren t fever: No.Current cough: Yes.Exposure to person with lab confirmed positive COVID-19: No.Travel during past two weeks: No.Difficulty breathing: No.Healthcare worker or road marker: No.Mcc or [facility] P[facility] Care facility: No.Living in a correction, encampment, or other group facility: No.Age over 65: No.Underlying illnesses or risks: Yes.Additional Risks: Chronic lung disease including asthma, COPD, emphysema and chronic bronchitis.Additional Info: Have you or any member of your household had:Chills? noSore Throat? noBody aches/muscle pain? noHeadaches? noFatigue? noNew loss of taste or smell? noNausea/Vomiting? noDiarrhea? no hypertension It is currently stable. Risk factors include depression, male gender, obesity and sleep apnea. Pertinent negatives include chest pain, dyspnea, headache, nausea and vomiting. Additional information: has a BP monitor at home now, checking regularly. Has not been using CPAP regularly diabetes Risk factors inc lude: family history diabetes mellitus, obesity and sedentary lifestyle. He Has been managed with diet. Comorbidity: Hypertension. Pertinent negatives include chest pain, diarrhea and dyspnea. Additional information: reports walking 3x weekly, but can't saw how long he walks for. Checking a glucose at home every few days and usually in the low 100s. depression This is a follow up visit. The patient reports functioning as somewhat difficult. The Global Assessment of Functioning Scale (GAF) = 53. The patient presents with difficulty concentrating, difficulty falling asleep, difficulty staying asleep and fatigue but denies depressed mood, diminished interest or pleasure or thoughts of or suicide. The patient denies any headache, nausea and vomiting. Additional information: fluoxetine was stopped (patient reports d/t being out of refills) - but mood remained stable without rx so it has not been restarted. COVID_19 Screen (comments) This visit was completed via telephone due to the restrictions of the Novel Coronavirus (Covid19) pandemic. All issues as below were discussed and addressed but no physical exam was performed. If it was felt that the patient should be evaluated in clinic then they were directed there. Patient was notified that this visit would not be HIPAA compliant. Patient verbally consented to visit. The visit took place at the patient's home. My medical practice manager, Juan Jose, completed a phone intake and was not present during the telehealth visit. COVID_19 Screen (comments) This visit was completed via [facility] ([employer]) due to the restrictions of the Novel Coronavirus (Covid19) pandemic. All issues as below were discussed and addressed but no physical exam was performed unless allowed by visual confirmation on [facility] ([employer]). If it was felt that the patient should be evaluated in clinic then they were directed there. Patient was notified that this visit would not be HIPAA compliant. Patient verbally consented to visit. The visit took place at the patient's home. Present in the virtual visit is only the patient. My medical practice manager, Juan Jose, completed a phone intact and was not present during the telehealth visit. The following were at home but not present during the telehealth visit: patient's father COVID_19 Screen Screening:Curren t fever: No.Current cough: No.Exposure to person with lab confirmed positive COVID-19: No.Travel during past two weeks: No.Difficulty breathing: No.Healthcare worker or road marker: No.[facility] or [facility] facility: No.Living in a correction, encampment, or other group facility: No.Age over 65: No.Underlying illnesses or risks: Yes.Additional Risks: Diabetes Mellitus, Chronic lung disease including asthma, COPD, emphysema and chronic bronchitis.Additional Info: Have you or any member of your household had:Chills? No Sore Throat? noBody aches/muscle pain? noHeadaches? noFatigue? noNew loss of taste or smell? no diabetes The problem is s table. Risk factors include: family history diabetes mellitus, obesity and sedentary lifestyle. Patient is compliant with follow-up. He Has been managed with diet. Comorbidity: Hypertension. Pertinent negatives include chest pain, diarrhea and dyspnea. Additional information: Drinks about 16 oz of soda daily and also about 16 oz of juice daily. Not getting much of any exercise. hypertension Risk factors inc lude depression, male gender, obesity and sleep apnea. Pertinent negatives include chest pain, dyspnea, headache, nausea and vomiting. Additional information: does not have a BP cuff at home. Reports using CPAP every other night depression This is a follow up visit. The patient reports functioning as somewhat difficult. The Global Assessment of Functioning Scale (GAF) = 53. The patient presents with depressed mood, diminished interest or pleasure and fatigue but denies difficulty concentrating, feelings of guilt or thoughts of or suicide. The patient denies any headache, nausea and vomiting. Additional information: continues to meet with Dr. Wright regularly. hypertension (comments) This vis it was completed via [employer] ([employer]) due to the restrictions of the Novel Coronavirus (Covid19) pandemic. All issues as below were discussed and addressed but no physical exam was performed unless allowed by visual confirmation on [employer] ([employer]). If it was felt that the patient should be evaluated in clinic then they were directed there. Patient was notified that this visit would not be HIPAA compliant. Patient verbally consented to visit. The visit took place at the patient's home. Present in the virtual visit is only the patient. My medical practice manager, Juan Jose, completed a phone intact and was not present during the telehealth visit. The following were at home but not present during the telehealth visit: patient's father. depression This is a follow up visit. The patient reports functioning as extremely difficult. The Global Assessment of Functioning Scale (GAF) = 53. The patient does not present with feelings of guilt or thoughts of or suicide. The patient denies any headache, nausea and vomiting. Additional information: reports there are times when it is like a 'switch' is flipped and I go from [id number] to irritable' - reports this generally happens on the weekends when he is around friends for too long or cooped up too much. depression (comments) received p kariertheodore from [employer] offices re: patient's applying for disability - patient identifies 'anger issues' as main issue preventing him from ability to work. hypertension Risk factors inc lude depression, male gender, obesity and sleep apnea. Pertinent negatives include chest pain, dyspnea, headache, nausea and vomiting. Additional information: only using CPAP once or twice/week diabetes Risk factors inc lude: family history diabetes mellitus, obesity and sedentary lifestyle. Patient is compliant with follow-up. He Has been managed with diet. Home glucose readings: Min 80, Max 150 Comorbidity: Hypertension. Pertinent negatives include chest pain, diarrhea and dyspnea. Additional information: not getting much exercise. Drinking soda daily. Checks glucose 1-2x weekly at home. Retinal eye exam hypertension It is currently stable. Risk factors include depression, male gender, obesity and sleep apnea. Pertinent negatives include chest pain, dyspnea, headache, nausea and vomiting. Obesity The patient is l osing weight. Risk factors include sedentary lifestyle. Associated conditions include diabetes mellitus, hypertension and sleep apnea. Pertinent negatives include abdominal pain, constipation or headache. Additional information: The patient spends 20 hours per week with the television and computer. got rid of all the powerade and gatorade in the house, replaced with water. Not getting much exercise. Sleep apnea (follow up) The carleen ent presents for follow up of hypersomnia. Relevant history: a BMI of 53.23. The patient is also experiencing depression. The patient denies headache and wheezing. Additional information: Only using CPAP about once weekly. depression This is a follow up visit. There is continuation of initial symptoms. The patient reports functioning as very difficult. The Global Assessment of Functioning Scale (GAF) = 53. The patient presents with depressed mood, difficulty concentrating, difficulty falling asleep, difficulty staying asleep, diminished interest or pleasure and fatigue but denies thoughts of or suicide. The patient denies any headache, nausea and vomiting. Additional information: continues to meet with Dr. Wright regularly. diabetes The problem is s table. Risk factors include: family history diabetes mellitus, obesity and sedentary lifestyle. Patient is compliant with follow-up. He Has been managed with diet. Comorbidity: Hypertension. Pertinent negatives include chest pain, diarrhea and dyspnea. hypertension It is currently stable. Risk factors include depression, male gender, obesity and sleep apnea. Associated symptoms include fatigue. Pertinent negatives include chest pain, dyspnea, headache, nausea and vomiting. Additional information: A bit more active - playing [employer] - but now not as active d/t colder weather diabetes The problem is s table. Risk factors include: family history diabetes mellitus, obesity and sedentary lifestyle. Patient is compliant with follow-up. He Has been managed with diet. Comorbidity: Hypertension. Pertinent negatives include chest pain, diarrhea, dyspnea and hypoglycemic episodes. Additional information: drinking 24 oz soda daily and drinking powerade on the weekends. depression This is a follow up visit. The patient reports functioning as somewhat difficult. The Global Assessment of Functioning Scale (GAF) = 53. The patient presents with depressed mood, difficulty concentrating, difficulty falling asleep, difficulty staying asleep, diminished interest or pleasure, fatigue and feelings of guilt but denies thoughts of or suicide. The patient denies any headache, nausea and vomiting. Additional information: thinks increase in Prozac has been helpful. Incapacity Review Patient is wor mercedes with [employer] offices for medical disability - states chronic left shoulder pain as the main physical concern leading to inability to workAlso cites ongoing depression and anger issues - is seeing [facility] for this Shoulder Pain Onset: 13 years ago. Location: left shoulder. Context: there is an injury. Trauma type: fall, occurred in a public building, 13 Years ago. The pain is aggravated by lifting. The pain is relieved by pain/RX meds. Associated symptoms include decreased mobility. Pertinent negatives include bruising and swelling. Hand Dominance: right. Additional information: last saw orthopedics at 02/2017 - has not followed up with them since that time (was encouraged to follow up in 6 months if no improvement in pain). diabetes Risk factors inc lude: family history diabetes mellitus, obesity and sedentary lifestyle. Patient is compliant with follow-up. He Has been managed with diet. Comorbidity: Hypertension. Pertinent negatives include chest pain, diarrhea and dyspnea. Additional information: not getting any exercise. Continues to drink soda and or other sugary beverages daily. hypertension Risk factors inc lude depression, male gender, obesity and sleep apnea. Pertinent negatives include chest pain, dyspnea, headache, nausea and vomiting. Additional information: taking BP meds at bedtime - took last night depression This is a follow up visit. There is worsening of previously reported symptoms. The patient reports functioning as very difficult. The Global Assessment of Functioning Scale (GAF) = 53. The patient presents with depressed mood, difficulty concentrating, difficulty falling asleep, difficulty staying asleep, diminished interest or pleasure, fatigue and feelings of guilt but denies thoughts of or suicide. The patient denies any headache, nausea and vomiting. Additional information: Honestly, there are some days I don't want to get out of bed . diabetes The problem is s table. Risk factors include: family history diabetes mellitus, obesity and sedentary lifestyle. Patient is compliant with follow-up. He Has been managed with diet. Comorbidity: Hypertension. Associated symptoms include: heartburn. Pertinent negatives include chest pain, diarrhea and dyspnea. Additional information: working on moving some every day. Has been drinking more soda - three 2-litre bottles/week. hypertension It is currently stable. Risk factors include depression, male gender, obesity and sleep apnea. Pertinent negatives include chest pain, dyspnea, fatigue, nausea and vomiting. Asthma The initial visi t date was 08/05/2018. Context: allergic and seasonal. Pertinent negatives include dry cough, dyspnea at rest and wheezing. Additional information: was seen at [facility] 07/24 and given dx. of asthmatic bronchitis. depression This is a follow up visit. There is continuation of initial symptoms. The patient reports functioning as very difficult. The Global Assessment of Functioning Scale (GAF) = 53. The patient presents with depressed mood, difficulty concentrating, difficulty falling asleep, difficulty staying asleep, diminished interest or pleasure and feelings of guilt but denies fatigue or thoughts of or suicide. The patient's risk factors include history of depression. The patient denies any nausea and vomiting. Retinal eye exam hypertension Risk factors inc lude depression, male gender, obesity and sleep apnea. Pertinent negatives include chest pain, dyspnea, fatigue, headache, nausea and vomiting. Additional information: has appt 05/20 with sleep medicine depression This is a follow up visit. The patient reports functioning as very difficult. The Global Assessment of Functioning Scale (GAF) = 53. The patient presents with depressed mood, difficulty concentrating, difficulty falling asleep, difficulty staying asleep and diminished interest or pleasure but denies fatigue, loss of appetite or thoughts of or suicide. The patient denies any headache, nausea and vomiting. diabetes Risk factors inc lude: family history diabetes mellitus, obesity and sedentary lifestyle. Patient is compliant with follow-up. He Has been managed with diet. Comorbidity: Hypertension. Associated symptoms include: heartburn. Pertinent negatives include chest pain, diarrhea and dyspnea. Additional information: not getting any exercise - although will walk around a store 1-2x weeklyEstimates he is drinking a litre of pop daily. hypertension (comments) Reports continues to have occasional pain in shoulder - he has tried to contact orthopedics in [place] but has failed to get through diabetes The problem is i mproving. Risk factors include: family history diabetes mellitus, obesity and sedentary lifestyle. Patient is compliant with follow-up. He Has been managed with diet. Comorbidity: Hypertension. Associated symptoms include: heartburn. Pertinent negatives include chest pain, diarrhea and dyspnea. Additional information: drinking powerade more often and as well as soda (32 oz or more daily) - reports it is unlikely that he will decrease or stop use. hypertension It is currently stable. Risk factors include depression, male gender, obesity and sleep apnea. Pertinent negatives include chest pain, dyspnea, fatigue, headache, nausea and vomiting. depression This is a follow up visit. The patient reports functioning as very difficult. The Global Assessment of Functioning Scale (GAF) = 53. The patient presents with difficulty falling asleep but denies fatigue or thoughts of or suicide. The patient denies any headache, nausea and vomiting. Additional information: missed recent f/u with sleep center, has been rescheduled to May 07thReports no change in symptoms with change in SSRI. Does report that increase dose of trazodone has been helpful. depression This is a follow up visit. There is continuation of initial symptoms. The patient reports functioning as very difficult. The Global Assessment of Functioning Scale (GAF) = 53. The patient presents with depressed mood, diminished interest or pleasure, fatigue and feelings of guilt. The patient's risk factors include family history of depression, financial worries, history of depression, social isolation and unemployment. The depression is aggravated by conflict or stress and lack of sleep. The patient's relieving factors are sunlight. The depression is associated with chronic pain. The patient denies any headache, irritability, nausea, sweating, trembling, urinary frequency, vomiting and weight gain. Incap Exam Pt in the clinic for incapacitation examination. Pt state that [facility] want a physical examination from him for assistance. Pt state he is havingh problem with his right knee and right ankle. pt state that he has problem with his left shoulder also. Pt state that because of the problems with his right knee and right ankle he cannot snd for a long period of time of work a distance. depression This is a follow up visit. There is improvement of initial symptoms. The patient reports functioning as somewhat difficult. The Global Assessment of Functioning Scale (GAF) = 53. The patient presents with depressed mood, difficulty concentrating, diminished interest or pleasure, excessive worry and feelings of guilt. The patient's risk factors include chronic illness, family history of depression, history of depression and unemployment. The depression is aggravated by conflict or stress and lack of sleep. The patient's relieving factors are sunlight. The depression is associated with irritability. The patient denies any chronic pain, headache, nausea, sweating, trembling, urinary frequency, vomiting and weight gain. depression This is a follow up visit. The patient reports functioning as very difficult. The Global Assessment of Functioning Scale (GAF) = 53. The patient presents with depressed mood and diminished interest or pleasure but denies fatigue or thoughts of or suicide. The patient's risk factors include history of depression. The depression is associated with chronic pain. The patient denies any headache, nausea and vomiting. Additional information: has been sleeping a bit better with the trazodonehasn't noticed a big different with the increase in sertraline. diabetes Risk factors inc lude: family history diabetes mellitus and obesity. Patient is compliant with follow-up. He Has been managed with diet. Pertinent negatives include blurred vision, chest pain, diarrhea, dyspnea and heartburn. Additional information: Only getting exercise when walking for errands with a friend. hypertension Risk factors inc lude depression, male gender, obesity and sleep apnea. Pertinent negatives include chest pain, dyspnea, fatigue, headache, nausea and vomiting. Additional information: takes all medications at bedtime. Not using CPAP - has appt with sleep medicine next month depression This is a follow up visit. There is improvement of initial symptoms. The patient reports functioning as somewhat difficult. The Global Assessment of Functioning Scale (GAF) = 53. The patient presents with depressed mood, difficulty concentrating, difficulty falling asleep, diminished interest or pleasure and fatigue. The patient's risk factors include chronic illness and history of depression. The depression is aggravated by conflict or stress and lack of sleep. The patient's relieving factors are exercise. The patient denies any chronic pain, headache, irritability, nausea, sweating, trembling, urinary frequency, vomiting and weight gain. depression This is a follow up visit. There is improvement of initial symptoms. The patient reports functioning as very difficult. The Global Assessment of Functioning Scale (GAF) = 53. The patient presents with excessive worry and fatigue. The patient's risk factors include financial worries, history of depression and unemployment. The depression is aggravated by conflict or stress and lack of sleep. The patient's relieving factors are sunlight. Follow Up of diabetes Risk facto rs include: family history diabetes mellitus and obesity. Patient is compliant with follow-up. He Has been managed with diet. Pertinent negatives include chest pain, diarrhea, dyspnea and heartburn. Additional information: reports he has plans to start exercise (mowing the lawn)denies any recent dietary changes. depression This is a follow up visit. The patient reports functioning as very difficult. The Global Assessment of Functioning Scale (GAF) = 53. The patient presents with depressed mood and diminished interest or pleasure but denies anxious/fearful thoughts, fatigue or thoughts of or suicide. The patient's risk factors include history of depression. The patient denies any nausea and vomiting. Additional information: meeting with Dr. Wright regularlyFeels things might improve if he is approved for SSI, could get a car then which would allow him to be more active, [facility] This is a follow up visit. There is improvement of initial symptoms. The patient reports functioning as very difficult. The Global Assessment of Functioning Scale (GAF) = 53. The patient presents with depressed mood, diminished interest or pleasure and fatigue. The patient's risk factors include chronic illness, family history of depression, social isolation and unemployment. The depression is aggravated by conflict or stress, lack of sleep and winter season. The patient's relieving factors are warm weather. diabetes The problem is n ewly diagnosed. Risk factors include: family history diabetes mellitus and obesity. He Has been managed with diet. Pertinent negatives include blurred vision, chest pain, diarrhea, dyspnea and hypoglycemic episodes. Additional information: Both parents are diabetic. Drinks up to a litre of soda a day. shoulder pain It occurs consta ntly and is stable. Location: left shoulder. Context: there is an injury. Hand Dominance: right. Additional information: Was seen by [facility] and sent to ortho in [place], told to rest it for 3-6 weeks - no follow up scheduled. depression This is a follow up visit. There is continuation of initial symptoms. The patient reports functioning as not difficult at all. The Global Assessment of Functioning Scale (GAF) = 53. The patient presents with depressed mood, difficulty falling asleep, difficulty staying asleep and diminished interest or pleasure but denies fatigue or thoughts of or suicide. The patient's risk factors include history of depression. The patient denies any nausea and vomiting. Additional information: Meeting with Dr. Wright monthly - reports this is helpful.Saw sleep medicine yesterday - they prescribed a new sleep aid which he is going to order picker today, does not recall name. depression There is improve ment of initial symptoms. The patient reports functioning as somewhat difficult. The Global Assessment of Functioning Scale (GAF) = 53. The patient presents with anxious/fearful thoughts, depressed mood and excessive worry. The patient's risk factors include chronic illness, history of depression, social isolation and unemployment. The depression is aggravated by conflict or stress and winter season. The depression is associated with chronic pain. toe nail problems pt has noticed brittle left great toenail - denies pain. History of ingrown toenails. shoulder pain Onset: 10 years ago. Location: left shoulder. Context: there is an injury. The pain is aggravated by movement. The pain is relieved by OTC medicines (naproxen sodium). Pertinent negatives include bruising, crepitus, numbness, popping and swelling. Hand Dominance: right. Additional information: last seen by ortho 05/2016. reports PT was not helpful, Also reports injections were unhelpfulOriginal injury was L & I claim. Allergy symptoms The patient den ies cough and nausea. Additional information: reports taking sudafed twice daily (as prescribed by previous provider). Seen recently by ENT. cough The patient desc ribes the cough as dry, non-productive and persistent. It occurs persistently. The problem has become gradually worse. Context: known asthmatic. Symptoms are aggravated by allergens, cold air, exertion and fumes. Relieving factors include bronchodilators. Associated symptoms include cough and nasal congestion. Pertinent negatives include chills, dyspnea, fatigue, fever and rhinorrhea. bug bite The symptoms beg an 1 week ago and generally lasts 1 Week. The symptoms are reported as being mild. The symptoms occur constantly. The location is Left shoulder/back. The context of the symptoms include itchy. Aggravating factors include bandaid. Relieving factors include nothing. He states the symptoms are acute and have worsened. bug bite (comments) 31 yom prese nts today for bump on back. Pt reports he first noticed it last week. Pt noticed that he had an itch and he felt something bumpy scratched a bump off . Dad put some antibiotic ointment on it and bandaid and left that on for awhile . His grandma looked at it she said it looks like a bug bite . Pt reports it is itching like crazy . Unsure if there is drainage. pain every once in awhile ADHD depression Snoring (adult) (comments) Durat ion of symptoms: several yearsNumber of hours sleep per night: about 4 hours per sleep x 3 sleeps per dayTime from pillow to asleep: about 30-60 minutesReason for delay in falling asleep: unknownNumber of times awakenin-4 times per sleep sessionReasons for awakening: dry mouth or to use restroomTime to fall back asleep: right away (5-10 minutes)Naps: see aboveCaffeine consumption: about 1/2 of a 2-liter of cola or Pepsi or Mt. DewTime of last caffeine: about 10-15 minutes to an hourNicotine consumption: noneTime of last nicotine: noneAlcohol consumption: very rarelyTime of last alcohol: n/aOther stimulants: noneSnoring (self-reported): noSnoring (others reported): yesApnea: girlfriendNumber apneic episodes/night: unknoiwnDaytime somnolence: yesAsleep at traffic lights or sitting for short time: noHypnagognic hallucinations: noneHypnopompic hallucinations: noneNightmares/night terrors: noneCataplexy: noneRapid asleep: noneBruxism: noneSomnoambulism: noneSomniloquy: yesStress level: 5/10Stressors: shoulder pain, financial issues, father-son issuesThings tried to remedy this: has tried to combine the sleep sessions with no benefitPast PSG/CPAP study: noneEpqorth Sleepiness Score - 9 How likely are you to doze off or fall asleep in the following situations, in contrast to feeling just tired?(Score as never = 0, slight chance = 1, moderate change = 2, or high chance = 3)1. Sitting or reading - 32. Watching TV - 13. Sitting, inactive in a public place (e.g., theater or a meeting) - 24. As a passenger in a car for an hour without a break - 25. Lying down to rest in the afternoon when circumstances permit - 26. Sitting down and talking with someone - 17. Sitting quietly after a lunch without alcohol - 08. In a car, while stopped for a few minutes in the traffic - 0(Greater than 9 = abnormal) shoulder pain Onset: 11 years ago. Severity level is 0. It occurs occasionally and is fluctuating. Location: left shoulder. The pain radiates to the shoulder to arms. The pain is aching and sharp. Context: there is an injury. Trauma type: fall, occurred at work, 11 Years ago. The pain is aggravated by lifting, pushing, cold weather and repetitive lifting and movements. The pain is relieved by OTC medicines (naproxen sodium) and acetaminophen. Pertinent negatives include bruising, crepitus, decreased mobility, difficulty initiating sleep, joint instability, joint tenderness, limping, locking, nocturnal awakening, nocturnal pain, numbness, popping, spasms, swelling, tingling in the arms, tingling in the legs and weakness. Additional information: Patient states that the orthopedist (Dr. Byers) at [facility] states that there was no tear, but the report from his MRI states that he does have tears; would like to see another specialist. hyperlipidemia Risk factors inc lude obesity, poor diet and smoking. The patient is adhering to follow-up and exercise for their hyperlipidemia. The patient is not adhering to diet for their hyperlipidemia. Hyperlipidemia management includes improved diet and increased exercise. Associated symptoms include heartburn and joint pain. Pertinent negatives include chest pain, claudication, constipation, diaphoresis, diarrhea, dizziness, dyspnea, hematuria, nausea, palpitations, rash and vomiting. Snoring (adult) The snoring occu rs from unknown. The frequency is every night. The problem is with no change. Context: in any sleep position. Denies aggravating factors. Denies relieving factors. Associated symptoms include apnea during sleep, excessive fatigue, heartburn, increased irritability, nasal drainage, nasal obstruction and dry mouth in morning. Pertinent negatives include falls asleep while driving, morning headaches, tearing and weight gain. Additional information: Patient states father told him that he snores and he had a past girlfriend told him that he did have apneic episodes. ADHD depression anxiety depression Insomnia allergies The patient radha es cough and nausea. Additional information: Allergies well controlled with Claritin even off Flonase. No problems w/ meds. depression The patient repo rts functioning as very difficult. The Global Assessment of Functioning Scale (GAF) = 50. The patient does not present with fatigue. The patient denies any nausea and vomiting. Additional information: Mood is still down but improved with buspropion and Zoloft as prescribed by Ms Sands. Pt has appt w/ Ms Shavon upcoming. L shoulder pain patient has ongo ing L shoulder pain and recent MRI of L shoulder showed focal anterior glenoid labral tear and small amount of fluid in subacromial/subdeltoid bursa. Also found some mild tendinosis of long head of biceps tendon and supraspinatus and infraspinatus but no discrete tears. Patient to see orthopedics upcoming. Patient is taking Tylenol, naproxen, cyclobenzaprine which helps control the pain. Pain minimal currently 1-2/10 but increaes with movment. GERD Pain scale: 0/10 . Pertinent negatives include constipation, diarrhea, dyspnea, fever, nausea and vomiting. Additional information: Patient currently out of Prilosec but when patient was taking, it controlled GERD symptoms well and w/ no reported side effects. anxiety depression Insomnia GERD Pain scale: 0/10 . Associated symptoms include fever. Pertinent negatives include back pain, constipation, diarrhea, dyspnea, nausea and vomiting. Additional information: Taking Prilosec for GERD but has acid reflux flare with spicy food. depression The patient repo rts functioning as very difficult. The Global Assessment of Functioning Scale (GAF) = 50. The patient does not present with fatigue. The patient denies any nausea and vomiting. Additional information: He recently self-adjusted his Zoloft up to 100mg daily in last few days due to mood being down, no side effects of medication. He is also taking wellbutrin and states this combination works well. Follow Up of depression Follow Up of L shoulder pain R knee pain R knee pain reso lved. L shoulder pain The patient repo rts ongoing pain in the left shoulder. He is taking naproxen, tylenol, and cyclobenzaprine. He states these medications are working fairly well in controlling his pain symptoms. anxiety depression Insomnia L shoulder pain neck/shoulder pa in since 2005 after fall with back/neck pain improving a bit, pain with movement in many directions and with repetive motion, some neck pain with associated radiation of pain/weakness/numbness down L side episodically but less after PT, still ongoing and pain meds helping and not taking pain meds to max dose and finished PT for shoulder and to start with PT for knee soon, R knee pain, onset: years, episodic, pain with sitting/walking, pain with moving leg/knee, , x-ray of shoulder/knee with no clear fracture or masses, no problem with current pain meds but not taking regularly and still with pain daily depression The patient repo rts functioning as very difficult. The patient presents with fatigue. The patient denies any nausea and vomiting. Additional information: mood improved a bit wtih zoloft but still down overall, trouble sleeping, anxious at times. knee/shoulder pain neck/shoulder pain since 2005 after fall, pain with movement in many directions and with repetive motion, some neck pain with associated radiation of pain/weakness/numbness down L side still ongoing and pain meds helping and not taking to max dose and had soem PT but to have some more to finish course, R knee pain, onset: years, episodic, pain with sitting/walking, pain with moving leg/knee, , x-ray of affected joints with no clear fracture or masses, no problem with current pain meds depression The patient repo rts functioning as very difficult. The patient denies any headache, nausea and vomiting. Additional information: mood still down even on zoloft 25mg but imporved on meds a bit, to see cousnelor soon at [facility] and anxiety/inosmnia also. GERD Pain scale: 6/10 . Pertinent negatives include back pain, constipation, diarrhea, dyspnea, fever, nausea and vomiting.Additional information:abd pain/gerd symptoms resolved on prilosec and doign well on medication. allergies The patient radha es cough, headache, nasal drainage and nausea. Additional information: nasal congestion, runny nose for weeks and not taking any meds for it. knee pain shoulder pain Location: should er. GERD Pain scale: 0/10 . Pertinent negatives include constipation, diarrhea, dyspnea, fever, nausea and vomiting.Additional information:osnet weeks of epigastric abd pain/burning sensation assocaited with spicy foods possible and not takign any meds for it. depression The patient repo rts functioning as somewhat difficult. The patient does not present with fatigue. The patient denies any nausea and vomiting. hyperlipidemia Pertinent negati ves include chest pain, constipation, diarrhea, dyspnea, nausea, palpitations and'+ vomiting. Additional information: onset: year, elevated ldl and due for recheck, pt workign on low fatty/carb diet to lower ldl/weight. shoulder pain (comments) shoulde r pain since 2005 after fall, pain with movement in many directions and with repetive motion, some neck pain with associated radiation of pain/weakness/numbness down L side, R knee pain, onset: years, episodic, pain with sitting/walking, pain with moving leg/knee, had a few sessions of PT years ago and current pain meds help, x-ray of affected joints with no clear fracture or masses and patietn to continue with PT soon. knee pain (comments) see above depression (comments) mood still down even on celexa 20g daily and not seeing counselor/mental health provider regularly, onset: years, anxious at times record abstraction right knee pain shoulder/back/knee pain shoulder pain since 2006 after fall, pain with movement in many directions repetive motion, some neck pain with associated radiation of pain/weakness/numbness, R knee pain, onset: years, episodic, pain with sitting/walking, pain with moving leg/knee, currently L upper back with pain and some radiation of pain/weakness/numbness down LUE, had a few sessions of PT and current pain meds help, x-ray of affected joints with no clear fracture or masses. depression The patient repo rts functioning as very difficult. The patient does not present with fatigue. The patient denies any nausea and vomiting. Additional information: onset: years with mood down with mild improvemet on celexa low dose but still with depression symptoms, trouble sleeping, willing to see counelor. ankle injury record abstraction upper back/neck pain onset: year s, with episodic neck/upper back pain, currently L upper back with pain and some radiation of pain/weakness/numbness down LUE, taking ibuprofen as needed for pain depression The patient repo rts functioning as somewhat difficult. The patient does not present with fatigue. The patient denies any nausea and vomiting. Additional information: onset: years, pt with mood down, pt states no formal dx of depression but hx of adhd as child and ritalin/adhd stimulant medication helped increase concentration, not seeing any counselor currently but willing to see one, trouble concentrating. shoulder pain Location: [facility] er. Additional information: onset: 2005, slipped fell on ground on L side and shoulder pain since then, went to ER had x-ray and dx with bruised bone. shoulder pain (comments) never h ad further imaging, PT or seen specialist for shoulder, pain with movement in many directions repetive motion, some neck pain with associated radiation of pain/weakness/numbness; was taking ibuprofen but still with pain R knee pain onset: years, ep isodic, pain with sitting/walking, pain with moving leg/knee; never had any work up/imaging/seen specialist for knee pain Instructions Date Instruction Additional Infor pedro I sent in loratadine 10 mg daily for allergy symptoms.encourage you to use Flonase, a nasal spray, 1-2x daily - hopefully this will help decrease your post-nasal drainage. Please let me know if symptoms persist. Related to Environmental and seasonal allergies Weight stable from l ast check - will continue to monitor.We talked about setting a timer to get up and move around for at least 5 minutes of every hour while at home. Related to Morbid obesity with body mass index (BMI) of 50.0 to 59.9 in adult Encourage you to lukas wiggins working on increasing your use of your CPAP - this can help with blood pressure control, weight, as well as mood!Continue to speak with Jose about ways to help you get on a schedule of using your CPAP. Related to KAMALJIT (obstructive sleep apnea) A1C today is 5.5 wit h goal of A1C < 7.0, showing excellent glucose control.Continue your weekly Trulicity injection.Will continue to encourage at least 30-45 minutes of physical activity most days of the week. Work on a diet rich in fiber/low in processed foods.- Check your feet daily- Yearly eye exam advised: next due February 2023- Plan to follow up here in three months, will check an A1C at that time. Related to Type 2 diabetes mellitus without complications Your blood pressure is at goal of < 140/90 today.Continue lisinopril 20 mg daily.Other things to help control your blood pressure:- daily physical activity- limit salt intake- use CPAP machine Will follow up here in three months Related to Essential (primary) hypertension I am glad you have gael govea speaking with Jose.Continue current medications:- trazodone 100 mg at bedtime as needed- guanfacine 2 mg at bedtime.Encourage you to get some daily physical activity - this can help with your overall mood, as well as help you sleep better.Plan to follow up here in three months. Related to Major depressive disorder, recurrent episode, moderate Continue famotidine twice daily for heartburn.Avoid foods and beverages that exacerbate your symptoms. Related to Gastroesophageal reflux disease without esophagitis Use your albuterol i nhaler as needed.Contact the clinic of seek medical attention if your condition worsens, including the development of chest pain or pressure, worsening shortness of breath, having to use your inhaler more often than recommended, a cough that is producing dark-colored or bloody phlegm, or any other new or concerning symptoms. Related to Mild intermittent asthma in adult without complication Self Management Goal Your blood pressure is at goal of < 140/90 today.Continue lisinopril 20 mg daily.Other things to help control your blood pressure:- daily physical activity- limit salt intake- use CPAP machine Will follow up here in three months Related to Essential (primary) hypertension Encourage you to lukas wiggins working on increasing your use of your CPAP - this can help with blood pressure control, weight, as well as mood!Continue to speak with Jose about ways to help you get on a schedule of using your CPAP. Related to KAMALJIT (obstructive sleep apnea) I am glad you have gael govea speaking with Jose.Continue current medications:- trazodone 100 mg at bedtime as needed- guanfacine 2 mg at bedtime.Encourage you to get some daily physical activity - this can help with your overall mood, as well as help you sleep better.Plan to follow up here in three months. Related to Major depressive disorder, recurrent episode, moderate Weight increased fro m last check - will continue to monitor.We talked about setting a timer to get up and move around for at least 5 minutes of every hour while at home. Related to Morbid obesity with BMI of 50.0-59.9, adult A1C today is 4.8 wit h goal of A1C < 7.0, showing excellent glucose control.Continue your weekly Trulicity injection.You do not need to be monitoring a blood glucose regularly - your diabetes has been stable for quite some time. But please let us know if you have any symptoms of a low glucose.Will continue to encourage at least 30-45 minutes of physical activity most days of the week. Work on a diet rich in fiber/low in processed foods.- Check your feet daily- Yearly eye exam advised: next due February 2023- Plan to follow up here in three months, will check an A1C at that time. Related to Type 2 diabetes mellitus without complication, without long-term current use of insulin A1C on last week's l abs was 5.7 with goal of A1C < 7.0, showing excellent glucose control.Continue your weekly Trulicity injection.You do not need to be monitoring a blood glucose regularly - your diabetes has been stable for quite some time.Will continue to encourage at least 30-45 minutes of physical activity most days of the week. Work on a diet rich in fiber/low in processed foods.- Check your feet daily- Yearly eye exam advised: next October 2022- Plan to follow up here in three months, will check an A1C at that time. Related to Type 2 diabetes mellitus without complication, without long-term current use of insulin Your blood pressure is at goal of < 140/90 today.Continue lisinopril 20 mg daily.Other things to help control your blood pressure:- daily physical activity- limit salt intake- use CPAP machine Will follow up here in three months Related to Essential (primary) hypertension Encourage you to wor k on using your CPAP nightly - this can help with blood pressure control, weight, as well as mood!Suggest you speak to Jose about ways to help you get on a schedule of using your CPAP. Related to KAMALJIT (obstructive sleep apnea) Refills of cimetidin e sent to your pharmacy to continue twice daily for heartburn.Avoid foods and beverages that exacerbate your symptoms. Related to Gastroesophageal reflux disease without esophagitis Use your albuterol i nhaler as needed.Encourage you to follow up with your insurance re: rx. levocetirizine daily for allergy symptoms.COVID bivalent booster provided today.Contact the clinic of seek medical attention if your condition worsens, including the development of chest pain or pressure, worsening shortness of breath, having to use your inhaler more often than recommended, a cough that is producing dark-colored or bloody phlegm, or any other new or concerning symptoms. Related to Mild intermittent asthma in adult without complication I am glad you have gael govea speaking with Jose.Continue current medications:- trazodone 100 mg at bedtime as needed- guanfacine 2 mg at bedtime.Encourage you to get some daily physical activity - this can help with your overall mood, as well as help you sleep better.Plan to follow up here in three months. Related to Major depressive disorder, recurrent episode, moderate Congratulations on t filiberto gradual weight loss! Keep it up!We talked about setting a timer to get up and move around for at least 5 minutes of every hour while at home. Related to Morbid obesity with BMI of 50.0-59.9, adult KRISTINE Recommend one-time s creening for hepatitis C & HIV for all adult patients. Will check with your next lab draw. Related to Preventative health care I am glad you have gael govea speaking with Jose.Continue current medications:- trazodone 100 mg at bedtime as needed- guanfacine 2 mg at bedtime.Encourage you to get some daily physical activity - this can help with your overall mood, as well as help you sleep better.Plan to follow up here in three months. Related to Major depressive disorder, recurrent episode, moderate Encourage you to wor k on using your CPAP nightly - this can help with blood pressure control, weight, as well as mood!Suggest you speak to Jose about ways to help you get on a schedule of using your CPAP. Related to KAMALJIT (obstructive sleep apnea) Will have you start levocetirizine 5 mg daily, to replace cetirizine - let me know if there are any issues obtaining this.encourage you to use Flonase, a nasal spray, 1-2x daily - hopefully this will help decrease your post-nasal drainage. Please let me know if symptoms persist. Related to Environmental and seasonal allergies Congratulations on gradual weight loss! Keep it up!We talked about setting a timer to get up and move around for at least 5 minutes of every hour while at home. Related to Morbid obesity with BMI of 50.0-59.9, adult Your blood pressure is at goal of < 140/90 today.Continue lisinopril 20 mg daily.Other things to help control your blood pressure:- daily physical activity- limit salt intake- use CPAP machine Will follow up here in three months Related to Essential (primary) hypertension A1C today is 5.6 wit h goal of A1C < 7.0, showing excellent glucose control.Continue your weekly Trulicity injection.Will continue to encourage at least 30-45 minutes of physical activity most days of the week. Work on a diet rich in fiber/low in processed foods.- Check your feet daily- Yearly eye exam advised: due now, will have you scheduled- Plan to follow up here in three months, with labs prior to your appointment Related to Type 2 diabetes mellitus without complication, without long-term current use of insulin Congratulations on gradual weight loss! Keep it up!We talked about setting a timer to get up and move around for at least 5 minutes of every hour while at home. Related to Morbid obesity with BMI of 50.0-59.9, adult Use your albuterol i nhaler as needed - refills sent in today.Also continue cetirizine daily for allergy symptoms.Contact the clinic of seek medical attention if your condition worsens, including the development of chest pain or pressure, worsening shortness of breath, having to use your inhaler more often than recommended, a cough that is producing dark-colored or bloody phlegm, or any other new or concerning symptoms. Related to Mild intermittent asthma in adult without complication Encourage you to wor k on using your CPAP nightly - this can help with blood pressure control, weight, as well as mood!Suggest you speak to Jose about ways to help you get on a schedule of using your CPAP. Related to KAMALJIT (obstructive sleep apnea) I am glad we were ab le to get you scheduled with Jose again - you can always call the clinic re: scheduling if you don't hear from us after an appointment.Continue current medications:- trazodone 100 mg at bedtime as needed- guanfacine 2 mg at bedtime.Encourage you to get some daily physical activity - this can help with your overall mood, as well as help you sleep better.Plan to follow up here in three months. Related to Major depressive disorder, recurrent episode, moderate A1C today is 5.4 wit h goal of A1C < 7.0, showing excellent glucose control.Continue your weekly Trulicity injection.Will continue to encourage at least 30-45 minutes of physical activity most days of the week. Work on a diet rich in fiber/low in processed foods.- Check your feet daily- Yearly eye exam advised: next due September 2021- Plan to follow up here in three months, will check an A1C at that time Related to Type 2 diabetes mellitus without complication, without long-term current use of insulin Your blood pressure is above goal of < 140/90 today.Continue lisinopril 20 mg daily.Will continue to monitor your blood pressure and adjust medication if needed if it remains elevated. I strongly recommend you work on using your CPAP nightly!Other things to help control your blood pressure:- daily physical activity- limit salt intake- use CPAP machine Will follow up here in three months Related to Essential (primary) hypertension Continue cimetidine twice daily for heartburn.Avoid foods and beverages that exacerbate your symptoms. Related to Gastroesophageal reflux disease without esophagitis TIMOTHYKJE Self Management Goal Encourage you to wor k on using your CPAP nightly - this can help with blood pressure control, weight, as well as mood!Suggest you speak to Jose about ways to help you get on a schedule of using your CPAP. Related to KAMALJIT (obstructive sleep apnea) So sorry to hear abo ut your dad - please let us know if we can be of further support.Continue current medications:- trazodone 100 mg at bedtime as needed- guanfacine 2 mg at bedtime.Encourage you to get some daily physical activity - this can help with your overall mood, as well as help you sleep better.Keep appts as scheduled with Jose - we got you scheduled with her next month.Plan to follow up here in three months. Related to Major depressive disorder, recurrent episode, moderate Your blood pressure is at goal of < 140/90 today.Continue lisinopril 20 mg daily.Other things to help control your blood pressure:- daily physical activity- limit salt intake- use CPAP machine Will follow up here in three months Related to Essential (primary) hypertension A1C today is 5.8 wit h goal of A1C < 7.0, showing excellent glucose control.Encourage you to work on remembering the Trulicity injection weekly - refills sent to your pharmacy today.Will continue to encourage at least 30-45 minutes of physical activity most days of the week. Work on a diet rich in fiber/low in processed foods.- Check your feet daily- encourage you to get a COVID booster vaccine- Yearly eye exam advised: next due September 2021- Plan to follow up here in three months, will check an A1C at that time Related to Type 2 diabetes mellitus without complication, without long-term current use of insulin A1C on recent labs w as 6.3 with goal of A1C < 7.0. We clarified the diagnosis of diabetes - you do have diabetes but it is well controlled without medication.Encourage you to work on remembering the Trulicity injection weekly.Will continue to encourage at least 30-45 minutes of physical activity most days of the week. Work on a diet rich in fiber/low in processed foods.- Check your feet daily- Yearly eye exam advised: next due September 2021- Plan to follow up here in three months, will check an A1C at that time Related to Type 2 diabetes mellitus without complication, without long-term current use of insulin Encourage you to wor k on using your CPAP nightly - this can help with blood pressure control, weight, as well as mood!Suggest you speak to Jose about ways to help you get on a schedule of using your CPAP. Related to KAMALJIT (obstructive sleep apnea) Your blood pressure is at goal of < 140/90 today.Continue lisinopril 20 mg daily.Other things to help control your blood pressure:- daily physical activity- limit salt intake- use CPAP machine Will follow up here in three months Related to Essential (primary) hypertension So sorry to hear abo ut your mom - please let us know if we can be of further support.Continue current medications:- trazodone 100 mg at bedtime as needed- guanfacine 2 mg at bedtime.Encourage you to get some daily physical activity - this can help with your overall mood, as well as help you sleep better.Keep appts as scheduled with Anne to follow up here in three months. Related to Major depressive disorder, recurrent episode, moderate Congratulations on t he gradual weight loss! Keep it up!We talked about setting a timer to get up and move around for at least 5 minutes of every hour while at home. Related to Morbid obesity with BMI of 50.0-59.9, adult KRISTINE A1C today is 6.3 wit h goal of A1C < 7.0. We clarified the diagnosis of diabetes - you do have diabetes but it is well controlled without medication.Please follow up with your insurance re: the prescription for Trulicity. If there are any issues getting it covered please contact a nurse at the clinic.Will continue to encourage at least 30-45 minutes of physical activity most days of the week. Work on a diet rich in fiber/low in processed foods.- Check your feet daily- Yearly eye exam advised: will have you scheduled for this- Plan to follow up here in three months, with fasting labs prior to your appointment Related to Type 2 diabetes mellitus without complication, without long-term current use of insulin Continue cetirizine 10 mg daily. I also sent in Flonase, a nasal spray to use 1-2x daily - hopefully this will help decrease your post-nasal drainage. Please let me know if symptoms persist. Related to Environmental and seasonal allergies Continue current med ications:- trazodone 100 mg at bedtime.- guanfacine 2 mg at bedtime.Encourage you to get some daily physical activity - this can help with your overall mood, as well as help you sleep better.Keep appts as scheduled with Dr. Irby to follow up here in three months. Related to Major depressive disorder, recurrent episode, moderate Continue cimetidine twice daily for heartburn.Avoid foods and beverages that exacerbate your symptoms. Related to Gastroesophageal reflux disease without esophagitis Encourage you to wor k on using your CPAP nightly - this can help with blood pressure control, weight, as well as mood!Suggest you speak to Dr. Wright about ways to help you get on a schedule of using your CPAP. Related to KAMALJIT (obstructive sleep apnea) Your blood pressure is at goal of < 140/90 today.Continue lisinopril 20 mg daily.Continue to monitor blood pressure at home weekly, and contact the clinic if it is consistently above goal.Other things to help control your blood pressure:- daily physical activity- limit salt intake- use CPAP machine Will follow up here in three months Related to Essential (primary) hypertension [facility] paperwork compl eted - to be faxed in. Related to Morbid obesity with BMI of 50.0-59.9, adult Continue current med ications:- trazodone 100 mg at bedtime.- guanfacine 2 mg at bedtime.Encourage you to get some daily physical activity - this can help with your overall mood, as well as help you sleep better.Keep appts as scheduled with Dr. Irby to follow up here as scheduled in September Related to Major depressive disorder, recurrent episode, moderate Continue to use napr oxen and Tylenol as needed. Related to Chronic left shoulder pain Dietary management e ducation, guidance, and counseling Related to Body mass index [BMI] 50.0-59.9, adult Giving Encouragement to Exercise Related to Body mass index [BMI] 50.0-59.9, adult Continue cimetidine twice daily for heartburn.Avoid foods and beverages that exacerbate your symptoms. Related to Gastroesophageal reflux disease without esophagitis Encourage you to use a moisturizer at least once daily - this will help bumps and bruises heal faster. Related to Dry skin Continue current med ications:- trazodone 100 mg at bedtime.- guanfacine 2 mg at bedtime.Encourage you to get some daily physical activity - this can help with your overall mood, as well as help you sleep better.Keep appts as scheduled with Dr. WrightPlan to follow up here in three months. Related to Major depressive disorder, recurrent episode, moderate Use your albuterol i nhaler as needed.Also continue cetirizine daily for allergy symptoms.Contact the clinic of seek medical attention if your condition worsens, including the development of chest pain or pressure, worsening shortness of breath, having to use your inhaler more often than recommended, a cough that is producing dark-colored or bloody phlegm, or any other new or concerning symptoms. Related to Mild intermittent asthma in adult without complication Encourage you to wor k on using your CPAP nightly - this can help with blood pressure control, weight, as well as mood!Suggest you speak to Dr. Wright about ways to help you get on a schedule of using your CPAP. Related to KAMALJIT (obstructive sleep apnea) Aim for at least 30 minutes of physical activity most days of the week. Even if you can't fit in 30 minutes, try to take 10-15 minutes for a walk. Increase intake of veggies and fruit and avoid processed/fast foods.We talked about setting a timer to get up and move around for at least 5 minutes of every hour while at home.Will have you come into the clinic at your next appointment to get an updated weight. Related to Morbid obesity with BMI of 50.0-59.9, adult A1C today is 6.5 wit h goal of A1C < 7.0. We clarified the diagnosis of diabetes - you do have diabetes but it is well controlled without medication.We discussed trial of a medication for diabetes that has the benefit of some weight loss. Start Bydureon - injected once weekly - bring to the clinic once you receive for a nurse to instruct how to use it.Will continue to encourage at least 30-45 minutes of physical activity most days of the week. Work on a diet rich in fiber/low in processed foods.- Check your feet daily- Yearly eye exam advised: next due June 2020 - you have requested that we wait to do this until November- Plan to follow up here in three months, will check an A1C at that time Related to Type 2 diabetes mellitus without complication, without long-term current use of insulin Your blood pressure is at goal of < 140/90 today.Continue lisinopril 20 mg daily.Continue to monitor blood pressure at home weekly, and contact the clinic if it is consistently above goal.Other things to help control your blood pressure:- daily physical activity- limit salt intake- use CPAP machine Will follow up here in three months Related to Essential (primary) hypertension [facility] Self Management Goal Aim for at least 30 minutes of physical activity most days of the week. Even if you can't fit in 30 minutes, try to take 10-15 minutes for a walk. Increase intake of veggies and fruit and avoid processed/fast foods.We talked about setting a timer to get up and move around for at least 5 minutes of every hour while at home.Will have you come into the clinic at your next appointment to get an updated weight. Related to Morbid obesity with BMI of 50.0-59.9, adult I am initiating a re ferral back to orthopedics for you - you last saw a specialist for your shoulder three years ago, so they may want new imaging before they schedule you. Will contact you with further information.Continue to use naproxen and Tylenol as needed. Related to Chronic left shoulder pain A1C on most recent l abs (November 2019) was 6.0 with goal of A1C < 7.0, showing continued good glucose control.Currently controlled without medicationWill continue to encourage at least 30-45 minutes of physical activity most days of the week. Work on a diet rich in fiber/low in processed foods.- Check your feet daily- Yearly eye exam advised: next June 2020- Strongly encourage you to consider getting the flu vaccine.- Plan to follow up here in three months, will check an A1C at that time Related to Type 2 diabetes mellitus without complication, without long-term current use of insulin Your blood pressure goal is < 140/90.Continue lisinopril 20 mg daily.Continue to monitor blood pressure at home weekly, and contact the clinic if it is consistently above goal.Other things to help control your blood pressure:- daily physical activity- limit salt intake- use CPAP machine Will follow up here in three months Related to Essential (primary) hypertension Encourage you to wor k on using your CPAP nightly - this can help with blood pressure control, weight, as well as mood!Suggest you speak to Dr. Wright about ways to help you get on a schedule of using your CPAP. Related to KAMALJIT (obstructive sleep apnea) Continue current med ications:- trazodone 100 mg at bedtime.- guanfacine 2 mg at bedtime.Encourage you to get some daily physical activity - this can help with your overall mood, as well as help you sleep better.Keep appts as scheduled with Dr. WrightPlan to follow up here in three months. Related to Major depressive disorder, recurrent episode, moderate A1C on recent labs w as 6.0 with goal of A1C < 7.0, showing continued good glucose control.Currently controlled without medicationWill continue to encourage at least 30-45 minutes of physical activity most days of the week. Work on a diet rich in fiber/low in processed foods.- Check your feet daily- Yearly eye exam advised: next June 2020- Plan to follow up here in three months Related to Type 2 diabetes mellitus without complication, without long-term current use of insulin Your blood pressure goal is < 140/90.Continue lisinopril 20 mg daily.I am sending an order for a home blood pressure monitor to [facility] [place] - check with them next week to obtain this.Other things to help control your blood pressure:- daily physical activity- limit salt intake- use CPAP machine Will follow up here in three months Related to Essential (primary) hypertension Continue current med ications:- fluoxetine (Prozac) 60 mg daily.- trazodone 100 mg at bedtime.- guanfacine 2 mg at bedtime.Encourage you to get some daily physical activity - this can help with your overall mood, as well as help you sleep better.Keep appts as scheduled with Dr. WrightPlan to follow up here in three months. Related to Major depressive disorder, recurrent episode, moderate Encourage you to wor k on using your CPAP nightly - this can help with blood pressure control, weight, as well as mood!Suggest you speak to Dr. Wright about ways to help you get on a schedule of using your CPAP. Related to KAMALJIT (obstructive sleep apnea) Aim for at least 30 minutes of physical activity most days of the week. Even if you can't fit in 30 minutes, try to take 10-15 minutes for a walk. Increase intake of veggies and fruit and avoid processed/fast foods.We talked about setting a timer to get up and move around for at least 5 minutes of every hour while at home.Will have you come into the clinic at your next appointment to get an updated weight. Related to Morbid obesity with BMI of 50.0-59.9, adult KRISTINE A1C at last visit in April was 5.7 with goal of A1C < 7.0, showing continued good glucose control.Currently controlled without medicationWill continue to encourage at least 30-45 minutes of physical activity most days of the week. Work on a diet rich in fiber/low in processed foods.- Check your feet daily- Yearly eye exam advised: next due June 2020- Please let us know if you change your mind re: the pneumonia/flu vaccines- Plan to follow up here in three months, with fasting labs prior to your appt Related to Type 2 diabetes mellitus without complication, without long-term current use of insulin Your blood pressure has been at goal of < 140/90 at recent appointments.Continue lisinopril 20 mg daily.Other things to help control your blood pressure:- daily physical activity- limit salt intake- use CPAP machine Will follow up here in three months Related to Essential (primary) hypertension Encourage you to wor k on using your CPAP nightly - this can help with blood pressure control, weight, as well as mood!Suggest you speak to Dr. Wright about ways to help you get on a schedule of using your CPAP. Related to KAMALJIT (obstructive sleep apnea) Continue current med ications:- fluoxetine (Prozac) 60 mg daily.- trazodone 100 mg at bedtime.- guanfacine 2 mg at bedtime.Encourage you to get some daily physical activity - this can help with your overall mood, as well as help you sleep better.Keep appts as scheduled with Dr. Irby to follow up here in three months. Related to Major depressive disorder, recurrent episode, moderate Aim for at least 30 minutes of physical activity most days of the week. Even if you can't fit in 30 minutes, try to take 10-15 minutes for a walk. Increase intake of veggies and fruit and avoid processed/fast foods.Great job cutting down on powerade/gatorade! Keep it up! Related to Morbid obesity with BMI of 50.0-59.9, adult Continue current med ications:- fluoxetine (Prozac) 60 mg daily.- trazodone 100 mg at bedtime.Encourage you to get some daily physical activity - this can help with your overall mood, as well as help you sleep better.Keep appts as scheduled with Dr. Irby to follow up here in three months. Related to Major depressive disorder, recurrent episode, moderate Your blood pressure is at goal of < 140/90 today. Continue lisinopril 20 mg daily.Other things to help control your blood pressure:- daily physical activity- limit salt intake- use CPAP machine Will follow up here in three months Related to Essential (primary) hypertension Encourage you to wor k on using your CPAP nightly - this can help with blood pressure control, weight, as well as mood!Suggest you speak to Dr. Wright about ways to help you get on a schedule of using your CPAP. Related to KAMALJIT (obstructive sleep apnea) A1C today is 5.7 wit h goal of A1C < 7.0, showing continued good glucose control.Currently controlled without medicationWill continue to encourage at least 30-45 minutes of physical activity most days of the week. Work on a diet rich in fiber/low in processed foods.- Check your feet daily- Yearly eye exam advised: next due in June, please schedule with reception interviewer- Please let us know if you change your mind re: the pneumonia/flu vaccines- Plan to follow up here in three months, with fasting labs prior to your appt Related to Type 2 diabetes mellitus without complication, without long-term current use of insulin Aim for at least 30 minutes of physical activity most days of the week. Even if you can't fit in 30 minutes, try to take 10-15 minutes for a walk. Increase intake of veggies and fruit and avoid processed/fast foods.Great job cutting down on powerade/gatorade! Related to Morbid obesity with BMI of 50.0-59.9, adult Aim for at least 30 minutes of physical activity most days of the week. Even if you can't fit in 30 minutes, try to take 10-15 minutes for a walk. Increase intake of veggies and fruit and avoid processed/fast foods.Encourage you to work on cutting down on your soda and powerade consumption! Related to Morbid obesity with BMI of 50.0-59.9, adult We discussed the rec ommendation to follow up with the specialist in [place] as it has not improved since you last saw them over 6 months ago. Contact for orthopedics in [place]: [phone] to use naproxen and Tylenol as needed. Related to Chronic left shoulder pain Encourage you to wor k on using your CPAP nightly - this can help with blood pressure control, weight, as well as mood! Related to KAMALJIT (obstructive sleep apnea) Your blood pressure is at goal of < 140/90 today. Continue lisinopril 20 mg daily.Other things to help control your blood pressure:- daily physical activity- limit salt intake- use CPAP machine Will follow up here in three months Related to Essential (primary) hypertension A1C today is 5.5 wit h goal of A1C < 7.0, showing continued good glucose control.Currently controlled without medicationWill continue to encourage at least 30-45 minutes of physical activity most days of the week. Work on a diet rich in fiber/low in processed foods.- Check your feet daily- Yearly eye exam advised: next due 06/2019- Please let us know if you change your mind re: the pneumonia/flu vaccines- Plan to follow up here in three months Related to Type 2 diabetes mellitus without complication, without long-term current use of insulin Continue current med ications:- fluoxetine (Prozac) 60 mg daily.- trazodone 100 mg at bedtime.Encourage you to get some daily physical activity - this can help with your overall mood, as well as help you sleep better.Keep appts as scheduled with Dr. Irby to follow up here in three months. Related to Major depressive disorder, recurrent episode, moderate PRAPARE Self Management Goal Aim for at least 30 minutes of physical activity most days of the week. Even if you can't fit in 30 minutes, try to take 10-15 minutes for a walk. Increase intake of veggies and fruit and avoid processed/fast foods.Encourage you to work on cutting down on your soda and powerade consumption! Related to Morbid obesity with BMI of 50.0-59.9, adult We discussed the rec ommendation to follow up with the specialist in [place] as it has not improved since you last saw them over 6 months ago. Contact for orthopedics in [place]: [phone] to use naproxen and Tylenol as needed.Paperwork for [facility] completed to be faxed to them. Related to Chronic left shoulder pain Continue current med icationsL- fluoxetine (Prozac) 60 mg daily.- trazodone 100 mg at bedtime.Encourage you to get some daily physical activity - this can help with your overall mood, as well as help you sleep better.Keep appts as scheduled with Dr. Irby to follow up here as scheduled next month. Related to Major depressive disorder, recurrent episode, moderate Continue cetirizine 10 mg daily. I also send in pseudoephedrine (Sudafed) to use as needed. Related to Environmental and seasonal allergies Your blood pressure is elevated today with a goal of < 140/90. Continue lisinopril 20 mg daily - and we will have you return to the clinic in two weeks for a blood pressure check.Other things to help control your blood pressure:- daily physical activity- limit salt intake- use CPAP machine Will follow up here in three months Related to Essential (primary) hypertension A1C today is 6.0 wit h goal of A1C < 7.0, showing continued good glucose control.Currently controlled without medicationWill continue to encourage at least 30-45 minutes of physical activity most days of the week. Work on a diet rich in fiber/low in processed foods.- Check your feet daily- Yearly eye exam advised: next due 06/2019- Please let us know if you change your mind re: the pneumonia vaccine- Plan to follow up here in three months Related to Type 2 diabetes mellitus without complication, without long-term current use of insulin Increase fluoxetine (Prozac) to 60 mg daily.Continue trazodone 100 mg at bedtime.Encourage you to get some daily physical activity - this can help with your overall mood, as well as help you sleep better.Keep appts as scheduled with Dr. Irby to follow up here in three months, sooner if needed. Related to Major depressive disorder, recurrent episode, moderate Aim for at least 30 minutes of physical activity most days of the week. Even if you can't fit in 30 minutes, try to take 10-15 minutes for a walk. Increase intake of veggies and fruit and avoid processed/fast foods.Encourage you to work on cutting down on your soda and powerade consumption! Related to Morbid obesity with body mass index (BMI) of 60.0 to 69.9 in adult Encourage you to wor k on using your CPAP nightly - this can help with blood pressure control, weight, as well as mood! Related to KAMALJIT (obstructive sleep apnea) I have sent in refil ls of your albuterol inhaler - continue to use this as needed.Also continue cetirizine daily for allergy symptoms.Contact the clinic of seek medical attention if your condition worsens, including the development of chest pain or pressure, worsening shortness of breath, having to use your inhaler more often than recommended, a cough that is producing dark-colored or bloody phlegm, or any other new or concerning symptoms. Related to Mild intermittent asthma in adult without complication Continue to use your CPAP nightly.Will request recent notes from sleep medicine for review. Related to KAMALJIT (obstructive sleep apnea) Most recent A1C: 6.1 with goal of A1C < 7.0, showing continued good glucose control.Currently controlled without medicationWill continue to encourage at least 30-45 minutes of physical activity most days of the week. Work on a diet rich in fiber/low in processed foods.- Check your feet daily- Yearly eye exam advised: next due 06/2019- Please let us know if you change your mind re: the flu and pneumonia vaccines- Plan to follow up here in three months Related to Type 2 diabetes mellitus without complication, without long-term current use of insulin Your blood pressure is looks good today with a goal of < 140/90. Continue lisinopril 20 mg dailyOther things to help control your blood pressure:- daily physical activity- limit salt intake- use CPAP machine Will follow up here in three months Related to Essential (primary) hypertension Continue fluoxetine (Prozac) 40 mg daily and trazodone 100 mg at bedtime.encourage you to get some daily physical activity - this can help with your overall mood, as well as help you sleep better.Keep appts as scheduled with Dr. Irby to follow up here in three months, sooner if needed. Related to Major depressive disorder, recurrent episode, moderate Aim for at least 30 minutes of physical activity most days of the week. Even if you can't fit in 30 minutes, try to take 10-15 minutes for a walk. Increase intake of veggies and fruit and avoid processed/fast foods.Encourage you to work on cutting down on your soda and powerade consumption! Related to Morbid obesity with body mass index of 60.0-69.9 in adult PRAPARE Your blood pressure is looks good today with a goal of < 140/90. Continue lisinopril 20 mg dailyOther things to help control your blood pressure:- daily physical activity- limit salt intake- use CPAP machine (keep appt as scheduled with sleep medicine 05/20)Will follow up here in three months Related to Essential (primary) hypertension Most recent A1C: 5.9 with goal of A1C < 7.0, showing continued good glucose control.Currently controlled without medicationWill continue to encourage at least 30-45 minutes of physical activity most days of the week. Work on a diet rich in fiber/low in processed foods.- Check your feet daily- Yearly eye exam advised: next due 05/2018 - please schedule with reception interviewer today- Please let us know if you change your mind re: the flu and pneumonia vaccines- Plan to follow up here in three months, with fasting labs prior to your appt Related to Type 2 diabetes mellitus without complication, without long-term current use of insulin Aim for at least 30 minutes of physical activity most days of the week. Even if you can't fit in 30 minutes, try to take 10-15 minutes for a walk. Increase intake of veggies and fruit and avoid processed/fast foods.Encourage you to work on cutting down on your soda and powerade consumption! Related to Morbid obesity with body mass index of 60.0-69.9 in adult Continue fluoxetine (Prozac) 40 mg daily and trazodone 100 mg at bedtime.encourage you to get some daily physical activity - this can help with your overall mood, as well as help you sleep better.Keep appts as scheduled with Dr. Irby to follow up here in three months, sooner if needed. Related to Major depressive disorder, recurrent episode, moderate Aim for at least 30 minutes of physical activity most days of the week. Even if you can't fit in 30 minutes, try to take 10-15 minutes for a walk. Increase intake of veggies and fruit and avoid processed/fast foods.Encourage you to work on cutting down on your soda and powerade consumption! Related to Morbid obesity with body mass index of 60.0-69.9 in adult Most recent A1C: 5.8 with goal of A1C < 7.0, showing continued good glucose control.Currently controlled without medicationWill continue to encourage at least 30-45 minutes of physical activity most days of the week. Work on a diet rich in fiber/low in processed foods.- Check your feet daily- Yearly eye exam advised: next due 05/2018- Please let us know if you change your mind re: the flu and pneumonia vaccines- Plan to follow up here in three months, will recheck an A1C at that time Related to Type 2 diabetes mellitus without complication, without long-term current use of insulin Your blood pressure is looks good today with a goal of < 140/90. Continue lisinopril 20 mg dailyOther things to help control your blood pressure:- daily physical activity- limit salt intake- use CPAP machine (keep appt as scheduled with sleep medicine in April)Will follow up here in three months Related to Essential (primary) hypertension Continue fluoxetine (Prozac) 40 mg daily and trazodone 100 mg at bedtime.encourage you to get some daily physical activity - this can help with your overall mood, as well as help you sleep better.Keep appts as scheduled with Dr. Irby to follow up here in three months, sooner if needed. Related to Major depressive disorder, recurrent episode, moderate We discussed the rec ommendation to follow up with the specialist in [place] as it has not improved since you last saw them over 6 months ago. Contact for orthopedics in [place]: [phone] to use naproxen and Tylenol as needed. Related to Chronic left shoulder pain Take your medication s as prescribed; do not exceed the recommended dosages.Remember that it will take time and patience for your knee to heal completely. Restart activities slowly, taking extra care with the activity that caused the pain. Stop any activity that causes pain.Conservative therapies, including icing your knee, using NSAIDs like ibuprofen or naproxen, and rest, should be tried first. Physical therapy may be used after allowing for an initial period of healing. If conservative therapies fail to help resolve your pain, or if physical therapy causes worsening pain, contact your provider. NSAIDs can cause stomach upset, and possibly bleeding ulcers. Let your provider know if you have a history of bleeding ulcers, especially prior to starting NSAIDs; also, let your provider know if you take ranitidine, omeprazole, or other medications to protect your stomach from ulcers. Taking the medication with food or milk also may help decrease stomach upset. Related to Right knee pain, unspecified chronicity Take NSAIDs (ibuprof en, naproxen) as prescribed or per bottle instructions; do so with food or milk in your stomach.RICE Therapy:- Rest: stay off your ankle as much as you can for the first one to two days.- Ice: use a bag of ice or an ice pack to reduce swelling. Apply these to the area of swelling (wrap in a cloth or towel; don't apply ice directly to the skin) for 20 to 30 minutes at a time.- Compression: the use of an elastic wrap, such as an TAWNY wrap, can help to reduce swelling by forcing the fluid out of the damaged area. These devices can also help with some stabilizing of the area.- Elevation: when resting, try to keep your ankle elevated about 6 inches above the level of your heart; this will allow gravity to pull the swelling out of your ankle.Advance activities as tolerated.Return to clinic for worsening condition. Related to Right ankle pain, unspecified chronicity Talk to your provide r about any other medical problems that you have, any medications that you currently take, and any changes or side effects of medications.Eat a healthy, well-balanced diet that is rich in fruits, vegetables, and lean meats. Avoid sugary or high-fat foods (fried, fast food, etc.); avoid fad diets or starvation.Exercise on a regular basis, committing at least 30 minutes per day, most days per week to moderate-intensity exercise. Talk to your provider before starting an exercise-regimen.Consider joining a weight-loss support group; this may be easier to attain with help and support from others.Limit time spent watching TV, playing video games, or drinking alcohol or soft drinks or eating fast food.Stop smoking to help control body weight.Do not try to lose weight too fast or become discouraged if your weight loss plateaus at times; this is a life change, not a quick fix. Related to Morbid obesity with body mass index of 60.0-69.9 in adult Self Management Goal Aim for at least 30 minutes of physical activity most days of the week. Even if you can't fit in 30 minutes, try to take 10-15 minutes for a walk. Increase intake of veggies and fruit and avoid processed/fast foods. Related to Morbid obesity with body mass index of 60.0-69.9 in adult We discussed the rec ommendation to follow up with the specialist in [place] as it has not improved since you last saw them over 6 months ago. Contact for orthopedics in [place]: [phone] to use naproxen and tylenol as needed - refills sent to your pharmacy. Related to Chronic left shoulder pain We are adjusting you r medications today. Stop the sertraline (zoloft) and start fluoxetine (prozac) 40 mg daily.We are also increasing your trazodone to 100 mg at bedtime.encourage you to get some daily physical activity - this can help with your overall mood, as well as help you sleep better.Keep appts as scheduled with Dr. Irby to follow up here in three months, sooner if needed. Related to Major depressive disorder, recurrent episode, moderate Your blood pressure is looks good today with a goal of < 140/90. Continue lisinopril 20 mg dailyOther things to help control your blood pressure:- daily physical activity- limit salt intake- use CPAP machine (keep appt as scheduled with sleep medicine next month)Will follow up here in three months Related to Essential (primary) hypertension Most recent A1C: 6.4 with goal of A1C < 7.0, showing continued good glucose control.Currently controlled without medicationWill continue to encourage at least 30-45 minutes of physical activity most days of the week. Work on a diet rich in fiber/low in processed foods.- Check your feet daily- Yearly eye exam advised: next due 05/2018- Plan to follow up here in three months, will recheck an A1C at that time Related to Type 2 diabetes mellitus without complication, without long-term current use of insulin Encourage you to use your CPAP nightly - if you are having problems with the machine, follow up with sleep medicine Related to KAMALJIT (obstructive sleep apnea) Your blood pressure is elevated today with a goal of < 140/90. Start lisinopril 20 mg dailyOther things to help control your blood pressure:- daily physical activity- limit salt intake- use CPAP machineWill follow up here in three months Related to Essential (primary) hypertension Recent labs show an improvement in your vitamin D level. Continue your daily supplemement Related to Vitamin D deficiency Glad the ranitidine has been helping your symptoms - continue this medication Related to GERD without esophagitis Handout provided wit h some exercises for your shoulder - recommend doing these on a daily basis.Continue to use naproxen and tylenol as needed Related to Chronic left shoulder pain Increase sertraline to 150 mg dailyStart trazodone 50 mg at bedtime to help with sleep.encourage you to get some daily physical activity - this can help with your overall mood, as well as help you sleep better.Keep appts as scheduled with Dr. WrightPlan to follow up here in three months, sooner if needed. Related to Major depressive disorder, recurrent episode, moderate Most recent A1C: 6.7 with goal of A1C < 7.0, still at goal but slightly increased from last check.Currently controlled without medicationWill continue to encourage at least 30-45 minutes of physical activity most days of the week. Work on a diet rich in fiber/low in processed foods.- Check your feet daily- Yearly eye exam advised: next due 05/2018- Plan to follow up here in three months, will recheck an A1C at that time Related to Type 2 diabetes mellitus without complication, without long-term current use of insulin I am glad you have c ompleted the high dose supplement. At this point will have you start a daily supplement of 2000 units - please obtain at the pharmacy. Will recheck levels with next lab draw Related to Vitamin D deficiency Stop omeprazole and start ranitidine 150 mg twice daily.Things you can do to improve symptoms of GERD:-Maintain a healthy BMI (BMI 18.2-24.9)-Decrease caffeine intake (found in coffee, teas, energy drinks, sodas)-Avoid triggering foods (such as spicy food and acidic foods)-Do not lie down immediately after eating-If you have symptoms at night, prop yourself up on an extra pillowSeek immediate medical attention if you have blood with emesis, black or bloody stools or increased pain with fever and chills. Related to GERD without esophagitis We will request note s from orthopedics for review. Encourage you to call to let them know you are still having pain despite following recommendations - inquire re: a follow up appt. Related to Chronic left shoulder pain Continue current med ications and appts as scheduled with Dr. Wright If you are having more bad days than good, or you are having any new, concerning symptoms you think may be related to your depression, please notify the clinic as soon as possible so we can re-evaluate your treatment plan. Related to Major depressive disorder, recurrent episode, moderate Most recent A1C: 6.5 with goal of A1C < 7.0, showing you are just in the diabetic range now.No medication at this time.Will continue to encourage at least 30 minutes of physical activity most days of the week. Work on a diet rich in fiber/low in processed foods.- Check your feet daily- Yearly eye exam advised: due now, will have you schedule with reception interviewer- Plan to follow up in three month with labs prior to appt- encourage you to cut down on your soda intake Related to Type 2 diabetes mellitus without complication, without long-term current use of insulin Will obtain fasting labs soon and contact you with results Related to Body mass index (bmi) 60.0-69.9, adult We discussed discont inuing your sudafed (pseudoephedrine) as this medication should only be used for short-term. Continue fexofenadine daily, as this will help with congestion, and start using the flonase nasal spray daily as recommended by the revenue research analyst Related to Chronic allergic rhinitis, unspecified seasonality, unspecified trigger We are increasing yo ur guanfacine to 2 mg at bedtime.We have requested notes from the sleep specialist and I will review when we receive them. 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 And your regular behavioural health appts. Also encourage you to get some daily exercise/fresh air - this can help with mood. If you are having more bad days than good, or you are having any new, concerning symptoms you think may be related to your depression, please notify the clinic as soon as possible so we can re-evaluate your treatment plan. Related to Major depressive disorder, recurrent episode, moderate Eat a healthy, well- balanced diet that is rich in fruits, vegetables, and lean meats. Avoid sugary or high-fat foods (fried, fast food, etc.); avoid fad diets or starvation.Exercise on a regular basis, committing at least 30 minutes per day, most days per week to moderate-intensity exercise. Consider joining a weight-loss support group; this may be easier to attain with help and support from others.Limit time spent watching TV, playing video games, or drinking alcohol or soft drinks or eating fast food.Do not try to lose weight too fast or become discouraged if your weight loss plateaus at times; this is a life change, not a quick fix. Related to Morbid obesity with body mass index of 60.0-69.9 in adult Please call orthoped ics to schedule a f/u appt.continue naproxen, acetaminophen and cyclobenzaprine as needed Related to Chronic left shoulder pain will tx with fexofen adine 180mg qa day and pseudofed 40mg in am and an hr prior to bed, to prevent drainage Related to Post-nasal drainage It appears that the sore is healing well on your back. You can use hydrocortisone cream as needed for itching. Apply to affected area twice daily. This should continue to get better. If you start to develop fever, chills, increasing pain, purulent drainage, increasing redness please return for further evaluation.Otherwise follow up with Dr. Holder as scheduled next month. Related to Rash and nonspecific skin eruption We discussed that yo u've gained 50 pounds in the past year. Please start exercising as tolerated (mowing the lawn is a great option!) and let us know if you are interested in meeting with a wall cleaner. Related to Morbid obesity, unspecified obesity type Thank you for coming in today - keeping your appointments is an important part of your self-care. Today we reviewed your symptoms and treatment plan together and have decided to continue with your current medications. Please continue to be mindful of how our treatment affects your health and continue to work on getting adequate sleep and nutrition. Related to MDD (major depressive disorder), recurrent, in partial remission see above Related to Other chronic pain Improved with guanfa cine. We discussed that you'd like to follow-up with another psychiatric provider - I have placed a referral for you. Related to Attention deficit hyperactivity disorder (ADHD), predominantly inattentive type Pain greatly impacts mood and mental health. Please follow your treatment plan designed by PCP and medical specialists. Related to Chronic shoulder pain, unspecified laterality Mental health care education Rel ated to MDD (major depressive disorder), recurrent, in partial remission Talk to your provide r about any other medical problems that you have, any medications that you currently take, and any changes or side effects of medications.Eat a healthy, well-balanced diet that is rich in fruits, vegetables, and lean meats. Avoid sugary or high-fat foods (fried, fast food, etc.); avoid fad diets or starvation.Exercise on a regular basis, committing at least 30 minutes per day, most days per week to moderate-intensity exercise. Talk to your provider before starting an exercise-regimen.Consider joining a weight-loss support group; this may be easier to attain with help and support from others.Limit time spent watching TV, playing video games, or drinking alcohol or soft drinks or eating fast food.Stop smoking to help control body weight.Do not try to lose weight too fast or become discouraged if your weight loss plateaus at times; this is a life change, not a quick fix. Related to Morbid obesity, unspecified obesity type Take your medication s as prescribed; do not exceed the recommended dosages.Resting your arm not only helps to reduce pain, but may be all that you need to properly heal. Try and do as many tasks as possible with the unaffected arm.You can alternate ice and moist heat applied to your shoulder for comfort.Avoid activities that put a lot of strain or pressure on your shoulders, such as push-ups.Contact your provider if your condition gets worse or if you develop new or worsening of tingling or numbness down your arms. Related to Chronic left shoulder pain Take any medications that your provider has prescribed to you regularly and as per the prescription. Do not change your diet or medications without first discussing with your provider. If taking a drug that's name ends with statin, take this medication at bedtime and avoid taking it with grapefruit and related juices.Eat more fruits and vegetables and high-fiber foods such as oat bran. Cook with oils high in polyunsaturated fats such as safflower, sunflower, and corn oils (omega-6 fatty acids).Do eat fish (fish contains omega-3 fatty acids).Avoid or limit greasy, fatty, or fried foods, as well as fast food meals. Dairy products also increase levels, but have other health benefits.If you current smoke (tobacco or marijuana) or use smokeless tobacco, you should consider stopping.Lose weight by changing your diet and doing aerobic exercise such as walking, jogging, bicycling, or swimming. Exercise for at least 30 minutes a day, most days of the week. Related to Mixed hyperlipidemia Based on the history that you provided me, there is a good possibility that you might have sleep apnea.Sleep apnea has been associated with several serious medical conditions, including cardiac arrhythmias (irregular rhythms), pulmonary hypertension, cor pulmonale (right heart enlargement), hypertension, and many others, not to mention daytime fatigue, morning headaches, falling asleep while at stop lights or watching TV, and impaired productivity.Sleep apnea can be diagnosed with a sleep study, called a polysomnogram, in which you sleep in their clinic while wearing wires and leads that assess such things as snoring, breathing patterns, brain wave activity, limb movements, and cardiac activity. If there is evidence of significant sleep apnea, they can do a trial of CPAP or BiPAP to check for improvement. This may be done the same night or on a separate study.I am putting in a referral for you to be evaluated and possibly tested for sleep apnea. Related to Need for assessment for sleep apnea We will check some r outine labs in about 3 months. These will be fasting labs, so do not eat or drink anything for about 10-12 hours before your blood draw. We will then sit down and discuss the results of these tests at a follow-up appointment about one week later. We will also discuss any new problems, medication effects, or other issues that were not covered at this appointment today. Related to Routine adult health maintenance Today we talked abou t the impact of a healthy body on your mind. Eating well-balanced meals with protein 3x daily helps people obtain and maintain a healthy weight. Exercise also works wonders for your physical and mental health! Let us know how we can help you with these goals! Related to Morbid obesity, unspecified obesity type see above Related to Body mass index (BMI) 50-59.9 , adult Please keep upcoming appointments with specialists and your PCP. Related to Chronic shoulder pain, unspecified laterality Let's switch from we llbutrin to strattera. Please take it once daily. You can try it at night - if it causes insomnia, please let me know. Return in 2 months. Related to Attention deficit hyperactivity disorder (ADHD), predominantly inattentive type Please continue with sertraline as directed. Daily routine and activity help our body and brain stay healthy. Return in 2 months. Related to MDD (major depressive disorder), recurrent, in partial remission see above Related to Other chronic pain Mental health care education Rel ated to MDD (major depressive disorder), recurrent, in partial remission see above Related to Other chronic pain Today we talked abou t the impact of a healthy body on your mind. Eating well-balanced meals with protein 3x daily helps people obtain and maintain a healthy weight. Exercise also works wonders for your physical and mental health! Let us know how we can help you with these goals! Related to Morbid obesity, unspecified obesity type Improved - I'm glad your dry mouth is better! Related to Xerostomia We reviewed question s to take to your consult with the surgeon next month:1. What does the surgery entail? How long does surgery take?2. What will recovery include (hospital stay, medications, physical therapy, cast)?3. What are non-surgical options for treatment?I hope it goes well! Related to Chronic shoulder pain, unspecified laterality Stable on sertraline . Return in 2 months. Related to MDD (major depressive disorder), recurrent, in partial remission Let's increase wellb utrin SR to 150mg daily to help better with your symptoms (for example, procrastination). Return in 2 months. Related to Attention deficit hyperactivity disorder (ADHD), predominantly inattentive type Mental health care education Rel ated to MDD (major depressive disorder), recurrent, in partial remission Giving encouragement to exercise Related to Body mass index (BMI) 50-59.9 , adult Lifestyle education regarding di et Related to Body mass index (BMI) 50-59.9 , adult Patient has ongoing left shoulder pain and had recent MRI which showed focal anterior glenoid labral tear. Patient to see orthopedics soon. Naproxen, tylenol, cyclobenzaprine helps control pain and to continue taking mediation regimen as prescribed and can increase to max dose as needed. Discussed side effects of medication with the patient. Call if medications do not help improve symptoms or if any new/worsening symptoms. Related to Chronic left shoulder pain Patient's mood down and patient on bupropion and Zoloft from Ms Shavon which helps with the mood. Continue taking medications as prescribed and continue follow ups with Ms Shavon as scheduled. Call if mood worsens or if any new/worsening symptoms. Related to Moderate single current episode of major depressive disorder See above. Related to Other chronic pain Symptoms well contro lled with Claritin. Continue taking Claritin as prescribed. Please call the clinic if your symptoms don't improve on current medication regimen or if any new/worsening symptoms. Related to Allergic rhinitis, unspecified allergic rhinitis trigger, unspecified rhinitis seasonality GERD symptoms improv ed on Prilosec but now out of medication. Restart taking the Prilosec and call if your symptoms return on medication. Elevate the head of your bed at night and avoid spicy foods. If patient asymptomatic after 3-4 weeks then try to wean off by decreasing by 1 pill every week and if symptoms return can restart taking at higher dose. Call if any new symptoms. Related to Gastroesophageal reflux disease, esophagitis presence not specified Your A1c at last [facility] was 6.1% which is in the pre-diabetes range. Work on eating a low fat/low carb diet and increase exercise. We will recheck fasting blood sugar and HgA1C at next appointment. Related to Pre-diabetes See above. Related to Morbi d obesity, unspecified obesity type Your BMI is in the m orbid obese level. You need to work on eating a low-fat/low-carb diet and increase how much you exercise. We will continue to follow this at your next appointment. Follow up appointment next 2-3 months. Related to Body mass index (BMI) 60.0-69.9, adult Your LDL was elevate d, but your triglycerides were at goal at last check - Continue working on increased exercise, low fatty/carb diet.- Will recheck CMP and fasting lipids at next visit. Related to Hyperlipidemia, unspecified hyperlipidemia type Dietary management e ducation, guidance, and counseling Related to Body mass index (BMI) 60.0-69.9, adult Giving encouragement to exercise Related to Body mass index (BMI) 60.0-69.9, adult Likely medication si de effect - let's try a mouthwash to protect your teeth. We may also consider sleep medicine referral in the future. Return in 2 months. Related to Xerostomia Please keep your ort hopedics referral as scheduled. Related to Chronic shoulder pain, unspecified laterality see above Related to Other chronic pain Today we discussed s trategies for remembering to take the wellbutrin every day to help with focus and organization/impulsivity. Try setting an alarm or keeping the medication in an obvious place so that you can't avoid it. Return in 2 months. Related to Attention deficit hyperactivity disorder (ADHD), predominantly inattentive type Today we talked abou t the impact of a healthy body on your mind. Eating well-balanced meals with protein 3x daily helps people obtain and maintain a healthy weight. Exercise also works wonders for your physical and mental health! Let us know how we can help you with these goals! Related to Morbid obesity, unspecified obesity type Please continue with sertraline - I am glad that the 100mg dose seems to help your mood. We discuss the importance of consistent daily dosing. Return in 2 months. Related to MDD (major depressive disorder), recurrent, in partial remission We discussed that th is may be related to dry mouth. Will try biotene for dry mouth to see if this helps. I think it would be useful for you to work on your sleep hygiene. This means finding a routine that helps settle your body and mind for sleep consistently. Some helpful strategies include:-Avoid caffeine (tea, coffee, soda, chocolate) after lunchtime-Make sure your allergies are treated, as allergies can make your breathing more difficult at nightime (this makes it harder to fall asleep and feel rested)-30-60 minutes of moderate exercise earlier in the day can help your body become tired by bedtime, but avoid exercising at night (this can increase your energy)-Avoid doing anything in bed but sleeping so your body knows that bed means sleep-Avoid screen time up to 2 hours before bed (screen time is thought to make your brain excitable)-Set a routine that you can follow every night to train your body to prepare for bed (e.g., shower, brush teeth, do some deep breathing, and then go to bed) Related to Frequent nocturnal awakening Improved with sertra line and wellbutrin - I'm glad this has helped significantly! Return in 2 months. Related to Anger Lifestyle education regarding di et Related to Body mass index (BMI) 50-59.9 , adult Mental health care education Rel ated to MDD (major depressive disorder), recurrent, in partial remission Giving encouragement to exercise Related to Body mass index (BMI) 50-59.9 , adult Discussed with the p atient that last fasting lipids and LDL were elevated and to continue statin. Will recheck fasting lipids as well as CMP to check liver enzymes while on statin. Patient to call for any new symptoms. Work on increasing exercise. Recommended low-fat/low-carb diet. Related to Hyperlipidemia, unspecified hyperlipidemia type As above. Related to Other chronic pain Recommended naproxen twice per day and tylenol every 8 hours. Possible tendonitis vs partial rotator cuff tear. Continue taking cyclobenzaprine as needed. Because of his ongoing pain, I would like to get an MRI of the shoulder to rule out a rotator cuff injury/other etiologies. Related to Chronic left shoulder pain You may take up to 2 tablets of Prilosec as needed when you eat spicy foods and overall prilosec helps control symptoms but some increase in symptoms a few times per month. Related to Gastroesophageal reflux disease, esophagitis presence not specified Resolved. call if returns. Relat ed to Right knee pain Patient self-adjuste d Zoloft to 100 mg in last few days, doing well on it, overall mood still down but meds helping especcially with taking wellbutrin. He is tolerating this dosage well and I believe it is reasonable to continue at increased zoloft dose on this regimen and to call in 4 weeks if mood not where he wants it to be. He should call if he has any issues with this new medication regimen. Related to MDD (major depressive disorder), recurrent, in partial remission The patient's laast A1c was 6.1. He is not currently taking any diabetic medication. We reviewed the fact that if his A1c becomes >6.5, he would be considered a diabetic and we would likely start him on medication. I encouraged him to work on low fatty/carb diet and exercise. Related to Pre-diabetes As we discussed michelle lane, I think it would be useful for you to work on your sleep hygiene. This means finding a routine that helps settle your body and mind for sleep consistently. Some helpful strategies include:-Avoid caffeine (tea, coffee, soda, chocolate) after lunchtime-Make sure your allergies are treated, as allergies can make your breathing more difficult at nightime (this makes it harder to fall asleep and feel rested)-30-60 minutes of moderate exercise earlier in the day can help your body become tired by bedtime, but avoid exercising at night (this can increase your energy)-Avoid doing anything in bed but sleeping so your body knows that bed means sleep-Avoid screen time up to 2 hours before bed (screen time is thought to make your brain excitable)-Set a routine that you can follow every night to train your body to prepare for bed (e.g., shower, brush teeth, do some deep breathing, and then go to bed) Related to Frequent nocturnal awakening We discussed today t hat this could be a symptom of ADHD and depression. The new medication should help improve your focus and ability to filter out extra distractions, which should make it easier for you to cope and manage your irritability. Return in 2 months. Related to Anger see above Related to Body mass index (BMI) 50-59.9 , adult Today we talked abou t the impact of a healthy body on your mind. Eating well-balanced meals with protein 3x daily helps people obtain and maintain a healthy weight. Exercise also works wonders for your physical and mental health! Let us know how we can help you with these goals! Related to Morbid obesity, unspecified obesity type Nutrition is critica l to your health! If you nourish your body well, your mind will be able to cope more easily and you will feel better about yourself and your ability to influence your health. Your blood sugar (which changes based on what you eat) can affect your mood and focus and make you feel better or worse. I wanted to share some recommendations for eating well:-Protein is excellent for stabilizing blood sugar, and I recommend getting 15-20 grams 3x/day. Many meds also work better if you eat protein. Good sources include nuts, beans, lean meats, yogurt, whole grains.-Healthy fats (from fish, nuts, avocados) are good in small amounts - your brain is made up of healthy fats and needs these to think well! -Vegetables contain vitamins and nutrients that your body needs to be healthy.-Sugars (sweets, bread, pasta) should only be eaten in moderation.-Eat smaller portions more frequently through the day to help your blood sugar stablize. Related to Poor eating habits Please continue to t francia sertraline as directed. Let's see if treating ADHD helps your self-esteem. Return in 2 months. Related to MDD (major depressive disorder), recurrent, in partial remission The medication (Well butrin or bupropion) we have agreed to try today should help your focus and mood. This medication is usually easy for people to take, and treats a wide range of symptoms, including sadness, anxiety, poor focus, and tobacco addiction. Most people feel a little relief within a week, although the medication might not work fully for up to a month. Try and pay attention to how this medication affects your symptoms and come back in 2 months to discuss how you are doing! Related to Attention deficit hyperactivity disorder (ADHD), predominantly inattentive type Giving encouragement to exercise Related to Body mass index (BMI) 50-59.9 , adult Lifestyle education regarding di et Related to Body mass index (BMI) 50-59.9 , adult Coping support assessment Relate d to MDD (major depressive disorder), recurrent, in partial remission Discussed with dileep russell last fasting lipids and LDL elevated.Will recheck fasting lipids and will check cmp to check liver enzymes incase a statin is needed to be startedPatient to call for any new symptoms. Work on increasing exercise/low fatty/carb diet. Related to Hyperlipidemia, unspecified hyperlipidemia type mood still down but improving so to incrase zoloft 75mg daily and call in 3 weeks if mood not improved and d/w pt side effects of medication, pt to see [facility] counselor soon. Related to Moderate single current episode of major depressive disorder Your blood sugar is the pre-diabetes range and d/w pt hgbA1c done today. Work on eating a low fat/low carb diet and increase exercise. We will recheck fasting blood sugar and HgA1C at next appointment. Related to Pre-diabetes Ongoing pain of R kn ee, L shoulder but back pain has improved, not taking pain meds regularly, to stop ibuprofen and change to naproxen twice daily, start taking tylenol every 8 hrs as needed for pain and flexeril as needed for pain and if not improved in 2 weeks and once have PT recent notes will check mri of shoulder if not improving. [facility] Patient to start PT for knee soon. warned pt about side effects of medication. PPt to call if any new symptoms. Related to Chronic left shoulder pain see above Related to Other chronic pain see above Related to Chron ic pain of right knee See [facility] corresponding to your treatment today Related to Encounter for dental examination and cleaning with abnormal findings Return for treatment as discusse d Related to Encounter for dental examination and cleaning with abnormal findings Possible sensitivity following fillings is normal Related to Encounter for dental examination and cleaning with abnormal findings Return for treatment as discusse d Related to Encounter for dental examination and cleaning with abnormal findings See [facility] corresponding to your treatment today Related to Encounter for dental examination and cleaning with abnormal findings Careful not to bite lips or cheeks due to numbness Related to Encounter for dental examination and cleaning with abnormal findings Follow written instr uctions provided during this visit Related to Encounter for dental examination and cleaning with abnormal findings Return for treatment as discusse d Related to Encounter for dental examination and cleaning with abnormal findings pt with symptoms of allergic rhiniitis, trial of claritin/flonse and if not improved in next 2 weeks to call into clinic or call sooner for new/worsening symptoms. Related to Allergic rhinitis, unspecified allergic rhinitis type pt with mood still d own even on zoloft 25mg daily, and to increase zoloft 50mg daily and to call in 4 week sif mood not improved and pt to see [facility] counselor and mental health provider soon and to call if any worsening/new symptoms. Related to Major depressive disorder, recurrent episode, moderate pt with bmi in obesi ty level, pt to work on low fatty/carb diet and increase exercise, will discuss more with pt next appt, f/u appt next 2-3 months Related to Body mass index (BMI) 50-59.9 , adult see above Related to Morbi d obesity, unspecified obesity type Ongoing pain of R kn ee, shoulder, upper back with pain meds helping a bit and small improvment and to be starting more physial therapy soon and awaiting appt. Possible OA vs meniscal tear vs other etiology; of knee, also L shoulder pain after injury several years ago and also some chronic L upper back/neck pain with some radicular pain, x-ray of locations shows no fractures, cont ibuprofen/tylenol/flexeril and can take to max dosing as needed for pain including flexeril 10mg q8 hrs, warned pt about side effects of medication. Possble will need MRi of affected joints if physical therapy not helping. Pt to call if any new symptoms. Related to Chronic pain of right knee see above Related to Chron ic left shoulder pain - pt with GERD sympt oms but improved on prilosec- cont prilosec - pt to call if symptoms return on prilosec, elevate head of bed at night and avoid spicy foods Related to Gastroesophageal reflux disease, esophagitis presence not specified Giving encouragement to exercise Related to Body mass index (BMI) 50-59.9 , adult Dietary management e ducation, guidance, and counseling Related to Body mass index (BMI) 50-59.9 , adult Return for treatment as discusse d Related to Encounter for dental examination and cleaning with abnormal findings pt with bmi in obesi ty level, pt to work on low fatty/carb diet and increase exercise, will discuss more with pt next appt, f/u appt next 2-3 months Related to BMI 50.0-59.9, adult pt gerd symptoms/abd pain and to start trial of prilosec and pt to call if symptosm not improved with medication after 2 weeks or lore sooner for new symptoms. Related to Gastroesophageal reflux disease, esophagitis presence not specified pt with prior elevat ed ldl and will recheck to see if improvedincrease exercise, work on low fatty/carb diet and will recheck cmp, fasting lipids Related to Hyperlipidemia, unspecified hyperlipidemia type pt with mood still d own even on celexa 20mg daily and pt to wean down on celexa by 10mg daily x 3 days and then start zoloft 25mg daily and call in 4 weeks if mood not improved, will refer pt to [facility] mental health provider and [facility] counselor. Related to Major depressive disorder, recurrent episode, moderate see above Related to Right knee pain Ongoing pain of R kn ee, shoulder, upper back with pain meds helping a bit and to be starting more physial therapy soon. Possible OA vs meniscal tear vs other etiology; of knee, also L shoulder pain after injury several years ago and also some chronic L upper back/neck pain with some radicular pain, x-ray of locations shows no fractures, trial of PT to continue, cont ibuprofen/tylenol/flexeril and can take to max dosing as needed for pain including flexeril 10mg q8 hrs, warned pt about side effects of medication. Possble will need MRi of affected joints if physical therapy not helping. Pt to call if any new symptoms. Related to Left shoulder pain Follow written instr uctions provided during this visit Related to Encounter for dental examination and cleaning with abnormal findings Return for treatment as discusse d Related to Encounter for dental examination and cleaning with abnormal findings Careful not to bite lips or cheeks due to numbness Related to Encounter for dental examination and cleaning with abnormal findings Follow written instr uctions provided during this visit Related to Encounter for dental examination and cleaning with abnormal findings Take medications as prescribed R elated to Encounter for dental examination and cleaning with abnormal findings Return for treatment as discusse d Related to Encounter for dental examination and cleaning with abnormal findings See [facility] corresponding to your treatment today Related to Encounter for dental examination and cleaning with abnormal findings Careful not to bite lips or cheeks due to numbness Related to Encounter for dental examination and cleaning with abnormal findings Follow written instr uctions provided during this visit Related to Encounter for dental examination and cleaning with abnormal findings Take medications as prescribed R elated to Encounter for dental examination and cleaning with abnormal findings Return for treatment as discusse d Related to Encounter for dental examination and cleaning with abnormal findings See [facility] corresponding to your treatment today Related to Encounter for dental examination and cleaning with abnormal findings Follow written instr uctions provided during this visit Related to Encounter for dental examination and cleaning without abnormal findings Return for treatment as discusse d Related to Encounter for dental examination and cleaning without abnormal findings See [facility] corresponding to your treatment today Related to Encounter for dental examination and cleaning without abnormal findings pt with prior elevat ed ldl and will recheck after increase exercise, work on low fatty/carb diet and will recheck cmp, fasting lipids in future appt Related to Hyperlipidemia, unspecified hyperlipidemia pt with symptoms of depression still on celexa 10mg daily, recommend increasing celexa 20mg daily, if symptoms not improved in next 3-4 weeks for pt to call into clinic. pt to establish with [facility] to see counselor/pschiatrist for input on medication. will place referral Related to Major depressive disorder, recurrent episode, moderate Ongoing pain of knee , shoulder, L upper back with pain meds helping a bit and patient has done 2 physical therapy sessions. Pt with R knee pain for years with no prior work up, possible OA vs meniscal tear vs other etiology; also L shoulder pain after injury several years ago and also some chronic L upper back/neck pain with some radicular pain, x-ray of locations shows no fractures, trial of PT to continue, cont ibuprofen/tylenol/flexeril and can take to max dosing as needed for pain, warned pt about side effects of medication. Possble will need MRi of affected joints and possible referral to specialist if PT and pain meds doesn't help. Pt to call if any new symptoms. Related to Left shoulder pain see above Related to Right knee pain see above Related to Right ankle pain pt with bmi in obesi ty level, pt to work on low fatty/carb diet and increase exercise, will discuss more with pt next appt, f/u appt next 2-3 months Related to Morbid obesity, unspecified obesity type see above Related to BMI 5 0.0-59.9, adult pt with symptoms of depression, recommend starting celexa 10mg daily, if symptoms not improved in next 3-4 weeks for pt to call into clinic. pt to establish with [facility] mental health to see counselor/pschiatrist for input on medication. If pt has any problem with getting appt at [facility] though walk-in intake process then pt to call into clinic. Pt also with hx of adhd as child and was on ritalin/adhd medication which he feels helped concnetratio and will discuss the possiblity of adult adhd with psychiatrist at [facility]. will check tsh to make sure no metabolic cause. Related to Major depression pt due for screening labs for hyperlipidemia so will check cmp and fasting lipids, pt to work on low fatty/carb diet and increase exercise Related to Screening for hyperlipidemia see above Related to Left shoulder pain see above Related to Cervi lore radiculopathy pt with bmi in obesi ty level, pt to work on low fatty/carb diet and increase exercise, will discuss more with pt next appt, f/u appt next 2-3 months Related to Obesity Pt with R knee pain for years with no prior work up, possible OA vs meniscal tear vs other etiology; also L shoulder pain after injury several years ago and also some chronic L upper back/neck pain with some radicular pain, will check x-ray of L shoulder/neck/R knee, trial of PT, trial of ibuprofen/tylenol/flexeril, warned pt about side effects of medication. Possble will need MRi of joints and possible referral to specialist if PT and pain meds doesn't help. Pt here to have incap fomr filled out so filled out for pt today. Pt to call if any new symptoms. Related to Right knee pain Assessments Type Assessment Date No Information
--- OUTSIDE RECORDS SUMMARY | 2023-11-14 13:02 | XMS_ITS | Encounter Summary ---
[facility] [address] [place] [id number] Care Team Providers Care Tailing Hand Name Role Phone Stevo Tineo Primary Care Provider [phone] Reason for Referral * Hospital - Outpatient (Routine) - Closed Specialty Diagnoses / Procedures Referred By Contac t Referred To Contact Sleep Medicine Diagnoses KAMALJIT on CPAP Snoring Excessive daytime sleepiness Procedures Home Sleep Study Miguel Angel Cochran MD [address] [place] [address] Phone: tel: fax: [facility] [address] [address] Phone: tel: fax: Referral ID Status Reason Start Date Expiration Date Visits Re quested Visits Authorized [id number] Closed 10/09/2023 10/08/2024 1 1 Reason for Visit * Hospital - Outpatient (Routine) - Closed Specialty Diagnoses / Procedures Referred By Contac t Referred To Contact Sleep Medicine Diagnoses KAMALJIT on CPAP Snoring Excessive daytime sleepiness Procedures Home Sleep Study Miguel Angel Cochran MD [address] [place] [address] Phone: tel: fax: [facility] [address] [address] Phone: tel: fax: Referral ID Status Reason Start Date Expiration Date Visits Re quested Visits Authorized [id number] Closed 10/09/2023 10/08/2024 1 1 Encounter Details Date Type Department Care Team (Late st Contact Info) Description 11/14/2023 1:02 PM EDT Hospital Encounter [facility] [address] [place] [id number] Miguel Angel Cochran MD [address] [place] [address] KAMALJIT on CPAP; Snoring; Excessive daytime sleepiness Social History Tobacco Use Types Packs/Day Years Used Date Smoking Tobacco: Never Passive Smoke Exposure: Never Smokeless Tobacco: Never Alcohol Use Standard Drinks/Week Comments Not Currently 0 (1 standard drink = 0.6 oz pure alcohol) rarely one drin in 3-6 months PHQ-2 Answer Date Recorded Retired PHQ-9: Brief Depression Severity Measure Score 15 01/22/2023 PHQ-2 Answer Date Recorded Patient Health Questionnaire-9 Score 13 11/29/2024 Sex and Gender Information Value Date Recorded Sex Assigned at Male 07/25/2024 6:58 PM EDT Legal Sex Male 12:14 PM EDT Gender Identity Not on file Sexual Orientation Straight 07/25/2024 6: 58 PM EDT documented as of this encounter Last Filed Vital Signs Vital Sign Reading Time Taken Comments Blood Pressure - - Pulse - - Temperature - - Respiratory Rate - - Oxygen Saturation - - Inhaled Oxygen Concentration - - Weight 200 kg (440 lb) 11/14/2023 1:24 PM EDT Height 185.4 cm (6' 1 ) 11/14/2023 1:24 PM EDT Body Mass Index 58.05 11/14/2023 1:24 PM EDT documented in this encounter Functional Status documented as of this encounter Plan of Treatment Upcoming Encounters Date Type Department Care Team (Late Contact Info) Description 02/21/2025 12:30 PM EST Office Visit [facility] [address] [place] [address] Stevo Tineo PA [address] [address] 06/14/2025 10:00 AM EST Telemedicine [facility] [address] [facility] [address] [place] [id number] Godfrey Perera, FIRE OFFICER [address] [place] [address] documented as of this encounter Procedures Procedure Name Priority Date/Time Associated Diagnosis Comments WATCHPAT Routine 11/15/2023 9:05 AM EDT KAMALJIT on CPAP Snoring Excessive daytime sleepiness documented in this encounter Results * WATCHPAT (11/15/2023 9:05 AM EDT) Narrative SLEEP MEDICINE - 11/19/2023 4:46 PM EDT Table formatting from the original result was not included. Home Sleep Apnea Test Report Patient Name: Anthony Maldonado Interpreting Physician: Miguel Angel Cochran MD Date of : 1985 Referring Provider: Miguel Angel Cochran,* Primary Care Provider: Stevo Tineo PA Date of Study: Clinical Information 38-year-old male with a a longstanding history of obstructive sleep apnea. He was diagnosed in [facility] though I do not have any details of his original diagnosis and I do not have a sleep study. He was treated with CPAP therapy but his machine is over 5 years old and he feels that it has started not working as well and smothering him. He uses a fullface mask but is curious about a smaller under the nose mask or a nasal mask. An HSAT was ordered to reconfirm the diagnosis so that new equipment could be ordered Methods used for Home Sleep Testing: Patient had a home sleep test using an WatchPat device that uses peripheral arterial tone to measure arterial volume changes at the fingertip showing sympathetic nervous system activation. Sleep stages are determined based on signal characteristics and built in actigraphy can help determine sleep/wake periods. Both signal attenuation and pulse rate determine arousals correlating with respiratory events, and the pulse oximeter sensor determines blood oxygen saturations. Snoring and body position is determined through an intergrated sensor measuring decibals and actigraphy. Home Sleep Testing Results The study was technically adequate. Study time was adequate. The AHI was 12.2. Oxygen saturations averaged 95% with a minimum saturation of 87%. The events were primarily obstructive in nature. A significant supine positional effect was not noted. Snoring was present. Impression: - mild obstructive sleep apnea is present. - Oxygen desaturation is present. - Snoring is present. Plan: Will reorder CPAP in the form of auto CPAP with a new mask fitting through a local [employer] company Follow-up in the sleep center to assess his efficacy and compliance Follow-up: Sleep Center Electronically signed by: Miguel Angel Cochran MD 11/19/23 16:44 EDT us Miguel Angel Cochran MD SLEEP CENTER ORDERABLE S Final Result SLEEP MEDICINE documented in this encounter Visit Diagnoses Diagnosis KAMALJIT on CPAP Snoring Other dyspnea and respiratory abnormality Excessive daytime sleepiness documented in this encounter Additional Health Concerns Assessment Noted Time PHQ-2 Depression Total Score: 4 07/02/19 24 2:00 PM EDT documented as of this encounter Care Teams Tailing Hand Relationship Specialty Start Date End Date Stevo Tineo PA [address] [place] [address] PCP - General Physician Professor Of Early Childhood Education 01/22/23 documented as of this encounter
--- OUTSIDE RECORDS SUMMARY | 2024-11-29 14:30 | XMS_ITS | Encounter Summary ---
Author Organization [facility] Address [address] [place] [address] Care Team Providers Care Business Continuity Consultant Name Role Phone Stevo Tineo Primary Care Provider Reason for Referral * Diagnostic Imaging (Routine) - Closed Specialty Diagnoses / Procedures Referred By Contac t Referred To Contact Radiology Diagnoses Acute right-sided low back pain without sciatica Procedures XR Spine Lumbar Complete 4+VW Stevo Tineo PA [address] [place] [address] Phone: tel: fax: Referral ID Status Reason Start Date Expiration Date Visits Re quested Visits Authorized [id number] Closed 11/29/2024 02/28/2026 1 1 Reason for Visit * Reason Comments Primary Care Follow-Up 4 month follow up Encounter Details Date Type Department Care Team (Late st Contact Info) Description 11/29/2024 2:30 PM EDT Office Visit [facility] [address] [place] [address] Stevo Tineo PA [address] [place] [address] Type 2 diabetes mellitus without complication, without long-term current use of insulin (Primary Dx); Acute right-sided low back pain with right-sided sciatica; Vitamin D deficiency; Gastroesophageal reflux disease, unspecified whether esophagitis present; Chronic pain of right knee Social History Tobacco Use Types Packs/Day Years Used Date Smoking Tobacco: Never Passive Smoke Exposure: Never Smokeless Tobacco: Never Tobacco Cessation:Counseling Given: Not Answered Alcohol Use Standard Drinks/Week Comments Not Currently [...] Sign Reading Time Taken Comments Blood Pressure 122/74 11/29/2024 2:19 PM EDT Pulse 80 11/29/2024 2:19 PM EDT Temperature 36.7 C (98 F) 11/29/2024 2:19 PM EDT Respiratory Rate 20 11/29/2024 2:19 PM EDT Oxygen Saturation - - Inhaled Oxygen Concentration - - Weight 217 kg (479 lb) 11/29/2024 2:19 PM EDT Height 182.9 cm (6' 0.01 ) 11/29/2024 2:19 PM ED T Body Mass Index 64.95 11/29/2024 2:19 PM EDT documented in this encounter Functional Status documented as of this encounter Progress Notes * Stevo Tineo PA - 11/29/2024 2:30 PM EDT Subjective Anthony Maldonado is a 39 y.o. male. History of Present Illness History of Present Illness The patient presents for a follow-up of type 2 diabetes mellitus. He reports no gastrointestinal issues with Ozempic and is currently on a dose of 0.25 mg weekly. His insurance does not cover both Ozempic and Januvia, so he is considering discontinuing the oral medication. He has previously used GLP-1 medication before his insurance change. His A1c level has decreased to 5.7. He is curious about the need to continue Januvia and is requesting a refill of his vitamin D prescription. He reports no urinary issues such as frequency, urgency, or burning sensation. He experiences occasional sharp pain in his lower back, which does not radiate down his leg. He does not experience back spasms but notes that his hip muscles tense up bilaterally or unilaterally at times. The pain intensifies after coughing or assuming certain body positions. The frequency of the sharp pain varies depending on his activities. The pain can be severe enough to disrupt his sleep, although he sleeps in a bed. He also reports occasional calf spasms and charley horse pain. He has been more active recently due to yard work, including mowing the lawn. His knee condition is stable, and he uses a knee brace during periods of high pain. He has been diagnosed with arthritis in his knee and has a long-term handicap placard due to this condition. Social History: Hobbies: Yard work Sleep: Sleeps in a bed; pain can disrupt sleep The following portions of the patient's history were reviewed and updated as appropriate: allergies, current medications, past family history, past medical history, past social history, past surgicalhistory, and problem list. Review of Systems Objective Physical Exam Vitals reviewed. Constitutional: Appearance: Normal appearance. He is obese. Cardiovascular: Rate and Rhythm: Normal rate and regular rhythm. Pulmonary: Effort: Pulmonary effort is normal. Breath sounds: Normal breath sounds. Musculoskeletal: Comments: R sided low back/ SI TTP Skin: General: Skin is warm and dry. Neurological: Mental Status: He is alert and oriented to person, place, and time. Results Labs - A1c: 5.9% Assessment & Plan Assessment & Plan 1. Type 2 diabetes mellitus. - Blood glucose levels have improved, with an A1c of 5.9. - Weight loss of approximately 11 pounds noted. - Dosage of Ozempic will be increased to 0.5 mg for the next month, with a potential increase to 1 mg if well-tolerated. - Januvia will be discontinued once the current supply is exhausted. 2. Low back pain. - Reports sharp pain in the lower back, sometimes accompanied by hip tension; pain does not radiatedown the leg. - An x-ray of the lower back has been ordered to assess for any degenerative changes. - Advised to use naproxen as needed for mild to moderate pain and to perform stretching exercises, particularly bringing the knee up to the chest while lying down. - A muscle relaxer will be prescribed for use at bedtime to aid in restful sleep. 3. Knee arthritis. - Reports that the knee has been feeling good and continues to use a knee brace for high pain episodes. - Weight loss is expected to help alleviate knee symptoms. 4. Medication management. - Refills for vitamin D and omeprazole have been sent to pharmacy. - Naproxen will be prescribed as needed for mild to moderate pain. Follow-up: The patient will follow up in mid-February 2025 for an annual physical. Diagnoses and all orders for this visit: 1. Type 2 diabetes mellitus without complication, without long-term current use of insulin (Primary) - POC Glycosylated Hemoglobin (Hb A1C) - Semaglutide,0.25 or 0.5MG/DOS, (OZEMPIC) 2 MG/1.5ML solution pen-injector; Inject 0.5 mg under the skin into the appropriate area as directed 1 (One) Time Per Week. Dispense: 1.5 mL; Refill: 0 2. Acute right-sided low back pain with right-sided sciatica - XR Spine Lumbar Complete 4+VW; Future - naproxen (NAPROSYN) 500 MG tablet; Take 1 tablet by mouth 2 (Two) Times a Day As Needed for Mild Pain or Moderate Pain. Dispense: 60 tablet; Refill: 5 - cyclobenzaprine (FLEXERIL) 10 MG tablet; Take 1 tablet by mouth At Night As Needed for Muscle Spasms. Dispense: 30 tablet; Refill: 2 3. Vitamin D deficiency - vitamin D (ERGOCALCIFEROL) 1.25 MG (66718 UT) capsule capsule; Take 1 capsule by mouth 1 (One) Time Per Week. Dispense: 4 capsule; Refill: 11 4. Gastroesophageal reflux disease, unspecified whether esophagitis present - omeprazole (priLOSEC) 20 MG capsule; Take 1 capsule by mouth Daily. Dispense: 90 capsule; Refill:3 5. Chronic pain of right knee - naproxen (NAPROSYN) 500 MG tablet; Take 1 tablet by mouth 2 (Two) Times a Day As Needed for MildPain or Moderate Pain. Dispense: 60 tablet; Refill: 5 Patient or patient national account representative verbalized consent for the use of Ambient Listening during the visit with BRIAN Thomas for chart documentation. 12/05/2024 14:43 EDT documented in this encounter Plan of Treatment Upcoming Encounters Date Type Department Care Team (Late st Contact Info) Description 02/21/2025 12:30 PM EST Office Visit [facility] [address] [place] [phone] Stevo Tineo PA [address] [place] [address] 06/14/2025 10:00 AM EST Telemedicine [facility] [address] [facility] [address] [place] [phone] Godfrey Perera, BUILDER'S LABOURER [address] [place] [address] documented as of this encounter Procedures Procedure Name Priority Date/Time Associated Diagnosis Comments POCT GLYCOSYLATED HEMOGLOBIN (HGB A1C) Routine 11/29/2024 2:38 PM EDT Type 2 diabetes mellitus without complication, without long-term current use of insulin documented in this encounter Results * XR Spine Lumbar Complete 4+VW (11/29/2024 3:11 PM EDT) Anatomical Region Laterality Modality Spine, L-spine N/A Radiographic Lauren ging 12/03/2024 3:39 PM EDT Impressions 12/03/2024 3:40 PM EDT Impression: Vertebral body heights are maintained without evidence of acute fracture and alignment is anatomic without evidence of listhesis or subluxation. Some mild spondylosis is noted at L1-2 with small osteophytes present. Electronically Signed: Jose Antonio Cedillo MD 12/03/2024 3:40 PM EDT Workstation ID: [id number] Narrative 12/03/2024 3:40 PM EDT XR SPINE LUMBAR COMPLETE 4+VW Date of Exam: 11/29/2024 3:09 PM EDT Indication: lumbar back pain, right side. Comparison: None available. Findings: Vertebral body heights are maintained without evidence of acute fracture and alignment is anatomic without evidence of listhesis or subluxation. Some mild spondylosis is noted at L1-2 with small osteophytes present. Procedure Note Moe Cedillo MD - 12/03/2024 XR SPINE LUMBAR COMPLETE 4+VW Date of Exam: 11/29/2024 3:09 PM EDT Indication: lumbar back pain, right side. Comparison: None available. Findings: Vertebral body heights are maintained without evidence of acute fractureand alignment is anatomic without evidence of listhesis or subluxation.Some mild spondylosis is noted at L1-2 with small osteophytes present. IMPRESSION: Impression: Vertebral body heights are maintained without evidence of acute fractureand alignment is anatomic without evidence of listhesis or subluxation.Some mild spondylosis is noted at L1-2 with small osteophytes present. Electronically Signed: Jose Antonio Cedillo MD 12/03/2024 3:40 PM EDT Workstation ID: [id number] Stevo TORRES IMG DIAGNOSTIC IMAGING ORDERAB LES Final Result * (ABNORMAL) POC Glycosylated Hemoglobin (Hb A1C) (11/29/2024 2:38 PM EDT) Hemoglobin A1C 5.9(A) 4.5 - 5.7 % [facility] Lot Number [id number] [facility] Expiration Date 07/02/2026 [facility] Blood 11/29/2024 2:38 PM EDT us Stevo TORRES POINT OF CARE TEST ORDERABLES Final Result [facility]
[address] [place] [address], documented in this encounter Visit Diagnoses Diagnosis Type 2 diabetes mellitus without complication, without long-term current use of insulin- Primary Acute right-sided low back pain with right-sided sciatica Vitamin D deficiency Gastroesophageal reflux disease, unspecified whether esophagitis present Chronic pain of right knee Acute right-sided low back pain with right-sided sciatica documented in this encounter Additional Health Concerns Assessment Noted Time PHQ-2 Depression Total Score: 4 07/02/19 24 2:00 PM EDT documented as of this encounter Care Teams Business Continuity Consultant Relationship Specialty Start Date End Date Stevo Tineo PA [address] [place] [address] PCP - General Physician Pl Sql Developer 01/22/23 documented as of this encounter
--- OUTSIDE RECORDS SUMMARY | 2024-11-29 15:08 | XMS_ITS | Encounter Summary ---
Author Organization [facility] Address [address] [place] [address] Care Team Providers Care Clinical Programmer Name Role Phone Stevo Tineo Primary Care Provider [phone] Reason for Referral * Diagnostic Imaging (Routine) - Closed Specialty Diagnoses / Procedures Referred By Contac t Referred To Contact Radiology Diagnoses Acute right-sided low back pain without sciatica Procedures XR Spine Lumbar Complete 4+VW Stevo Tineo PA [address] [place] [address] Phone: tel: fax: Referral ID Status Reason Start Date Expiration Date Visits Re quested Visits Authorized Closed 11/29/2024 02/28/2026 1 1 Reason for Visit * Diagnostic Imaging (Routine) - Closed Specialty Diagnoses / Procedures Referred By Contac t Referred To Contact Radiology Diagnoses Acute right-sided low back pain without sciatica Procedures XR Spine Lumbar Complete 4+VW Stevo Tineo PA [address] [place] [address] Phone: tel: fax: Referral ID Status Reason Start Date Expiration Date Visits Re quested Visits Authorized Closed 11/29/2024 02/28/2026 1 1 Encounter Details Date Type Department Care Team (Latest Contact Info) Description 11/29/2024 3:08 PM EDT - 11/29/2024 11:59 PM EDT Hospital Encounter [facility] [address] [place] [address] Stevo Tineo PA [address] [place] [address] Acute right-sided low back pain with right-sided sciatica Discharge Disposition: Home or Self Care Social History Tobacco Use Types Packs/Day Years [...] PM EDT documented as of this encounter Functional Status documented as of this encounter Medications at Time of Discharge acetaminophen (TYLENOL) 650 MG 8 hr tabletIndications: Chronic pain of right knee Take 1 tablet by mouth Every 8 (Eight) Hours As Needed for Mild Pain or Moderate Pain. 90 tablet 5 07/26/2024 buPROPion XL (WELLBUTRIN XL) 300 MG 24 hr tablet Take 1 tablet by mouth Every Morning. 06/12/2023 cloNIDine (CATAPRES) 0.1 MG tablet Take 1 tablet by mouth Every Night. 06/10/2023 cyclobenzaprine (FLEXERIL) 10 MG tabletIndications: Acute right-sided low back pain with right-sided sciatica Take 1 tablet by mouth At Night As Needed for Muscle Spasms. 30 tablet 2 11/29/2024 levocetirizine (XYZAL) 5 MG tabletIndications: Seasonal allergies TAKE 1 TABLET BY MOUTH EVERY EVENING 30 tablet 10 03/05/2024 lisinopril (PRINIVIL,ZESTRIL) 20 MG tablet TAKE 1 TABLET BY MOUTH DAILY 30 tablet 10 07/06/2024 naproxen (NAPROSYN) 500 MG tabletIndications: Acute right-sided low back pain with right-sided sciatica,Chronic pain of right knee Take 1 tablet by mouth 2 (Two) Times a Day As Needed for Mild Pain or Moderate Pain. 60 tablet 5 11/29/2024 omeprazole (priLOSEC) 20 MG capsuleIndications :Gastroesophageal reflux disease, unspecified whether esophagitis present Take 1 capsule by mouth Daily. 90 capsule 3 11/29/2024 rosuvastatin (CRESTOR) 10 MG tabletIndications: Hypercholesterolem ia TAKE 1 TABLET BY MOUTH ONCE DAILY 30 tablet 10 06/07/2024 vitamin D (ERGOCALCIFEROL) 1.25 MG (51345 UT) capsule capsuleIndications :Vitamin D deficiency Take 1 capsule by mouth 1 (One) Time Per Week. 4 capsule 11 11/29/2024 montelukast (SINGULAIR) 10 MG tabletIndications: Mild intermittent asthma without complication Take 1 tablet by mouth Every Night. 90 tablet 3 01/19/2024 5 Semaglutide,0.25 or 0.5MG/DOS, (OZEMPIC) 2 MG/1.5ML solution pen-injectorIndica tions:Type 2 diabetes mellitus without complication, without long-term current use of insulin Inject 0.5 mg under the skin into the appropriate area as directed 1 (One) Time Per Week. 1.5 mL 11/29/2024 5 documented as of this encounter Plan of Treatment Upcoming Encounters Date Type Department Care Team (Late st Contact Info) Description 02/21/2025 12:30 PM EST Office Visit [facility] [address] [place] [address] Stevo Tineo PA [address] [place] [address] 06/14/2025 10:00 AM EST Telemedicine [facility] [address] [facility] [address] [place] [phone] Godfrey Perera, IMPORT/EXPORT CLERK [address] [place] [address] documented as of this encounter Procedures Procedure Name Priority Date/Time Associated Diagnosis Comments XR SPINE LUMBAR COMPLETE 4+VW Routine 11/29/2024 3:11 PM EDT Acute right-sided low back pain with right-sided sciatica documented in this encounter Results * XR [...] MD 12/03/2024 3:40 PM EDT Workstation ID: [id number] Narrative 12/03/2024 3:40 PM EDT XR SPINE [...] MD 12/03/2024 3:40 PM EDT Workstation ID: [id number] Stevo TORRES IMG DIAGNOSTIC IMAGING ORDERAB LES Final Result documented in this encounter Visit Diagnoses Diagnosis Acute right-sided low back pain with right-sided sciatica documented in this encounter Additional Health Concerns Assessment Noted Time PHQ-2 Depression Total Score: 4 07/02/19 24 2:00 PM EDT documented as of this encounter Care Teams Clinical Programmer Relationship Specialty Start Date End Date Stevo Tineo PA [address] [place] [address] PCP - General Physician Enterprise Business Architect 01/22/23 documented as of this encounter
--- OUTSIDE RECORDS SUMMARY | 2024-12-24 11:30 | XMS_ITS | Encounter Summary ---
Author Organization [facility] Address [address] [place] [id number] Care Team Providers Care Bail Bonding Agent Name Role Phone Stveo Tineo Primary Care Provider [phone] Reason for Visit * Reason Comments Follow-up Right Knee EUFLEXXA #1 Injection * Medical Care (Routine) - Closed Specialty Diagnoses / Procedures Referred By Contac t Referred To Contact Orthopedic Surgery Diagnoses Primary osteoarthritis of right knee Procedures Large Joint Arthrocentesis Luz Newberry PA-C [address] [place] [address] Phone: tel: fax: Luz Newberry PA-C [address] [place] [address] Phone: tel: fax: Referral ID Status Reason Start Date Expiration Date Visits Re quested Visits Authorized [id number] Closed 11/09/2024 02/08/2026 1 3 Encounter Details Date Type Department Care Team (Late st Contact Info) Description 12/24/2024 11:30 AM EDT Clinical Support [facility] [address] [phone] Berna Fowler PA-C [address] [place] [address] Primary osteoarthritis of right knee Social History Tobacco Use [...] Concentration - - Weight 217 kg (479 lb 4.8 oz) 12/24/2024 12:01 P M EDT Height - - Body Mass Index 64.99 11/29/2024 2:19 PM EDT documented in this encounter Progress Notes * Laurence Perrin - 12/24/2024 11:30 AM EDTAssociated Order(s): - Large Joint Arthrocentesis: R knee Procedure - Large Joint Arthrocentesis: R knee on 12/24/2024 11:26 AM Indications: pain Details: 21 G needle, anterolateral approach Medications: 20 mg Sodium Hyaluronate (Viscosup) 20 MG/2ML Outcome: tolerated well, no immediate complications Procedure, treatment alternatives, risks and benefits explained, specific risks discussed. Consent was given by the patient. Immediately prior to procedure a time out was called to verify the correctpatient, procedure, equipment, manager product support and site/side marked as required. Patient was prepped and draped in the usual sterile fashion. * Berna Fowler PA-C - 12/24/2024 11:30 AM EDT Procedure Note: I discussed with the patient the potential benefits of performing a therapeutic injections as well as potential risks including but not limited to infection, swelling, pain, bleeding, bruising, nerve/vessel damage, skin color changes, transient elevation in blood glucose levels, and fat atrophy. After informed consent and after the areas were prepped with chlorhexadine soap, ethyl chloride was used to numb the skin. Via the inferolateral approach, 2mL of Euflexxa was each injected into the right knee joint. The patient tolerated the procedure well. There were no complications. A sterile dressing was placed over the injection sites. Follow-up:1 week documented in this encounter Plan of Treatment Upcoming Encounters Date Type Department Care Team (Late st Contact Info) Description 02/21/2025 12:30 PM EST Office Visit [facility] [address] [facility] [place] [address] [facility]o PA [address] [facility] [place] [address] 06/14/2025 10:00 AM EST Telemedicine [facility] [address] [facility] [address] [place] [address] Godfrey Perera, YANN [address] [place] [address] documented as of this encounter Procedures Procedure Name Priority Date/Time Associated Diagnosis Comments [place] ARTHROCENTESIS ASPIR&/INJ MAJOR JT/BURSA W/O US Routine 12/24/2024 11:26 AM EDT Primary osteoarthritis of right knee documented in this encounter Results * [place] ARTHROCENTESIS ASPIR&/INJ MAJOR JT/BURSA W/O US (12/24/2024 11:26 AM EDT) Narrative Laurence Perrin - 12/24/2024 11:26 AM EDT Laurence Perrin 12/24/2024 12:31 PM - Large Joint Arthrocentesis: R knee on 12/24/2024 11:26 AM Indications: pain Details: 21 G needle, anterolateral approach Medications: 20 mg Sodium Hyaluronate (Viscosup) 20 MG/2ML Outcome: tolerated well, no immediate complications Procedure, treatment alternatives, risks and benefits explained, specific risks discussed. Consent was given by the patient. Immediately prior to procedure a time out was called to verify the correct patient, procedure, equipment, manager product support and site/side marked as required. Patient was prepped and draped in the usual sterile fashion. Berna Fowler PA-C PROCEDURE/MINOR SURGICA L ORDERABLES Final Result documented in this encounter Visit Diagnoses Diagnosis Primary osteoarthritis of right knee documented in this encounter Administered Medications Inactive Administered Medications - up to 3 most recent administrations Medication Order MAR Action Action Date Dose Rate Site Sodium Hyaluronate (Viscosup) (EUFLEXXA) injection 20 mg 20 mg, One-Time Injection, Starting on Fri12/24/24 at 1126, For 1 doseIndications:Primary osteoarthritis of right knee Given 12/24/2024 11:26 AM EDT 20 mg Knee Right documented in this encounter Additional Health Concerns Assessment Noted Time PHQ-2 Depression Total Score: 4 07/02/19 24 2:00 PM EDT documented as of this encounter Care Teams Bail Bonding Agent Relationship Specialty Start Date End Date Stevo Tine[place] [address] PCP - General Physician Track Welder 01/22/23 documented as of this encounter
--- OUTSIDE RECORDS SUMMARY | 2024-12-31 13:00 | XMS_ITS | Encounter Summary ---
Author Organization [facility] Address [address] [place] [id number] Care Team Providers Care Cash Reconciliation Specialist Name Role Phone Stevo Tineo Primary Care Provider [phone] Reason for Visit * Reason Comments Injections Right Knee Euflexxa #2 * Medical Care (Routine) - Closed Specialty Diagnoses / Procedures Referred By Contac t Referred To Contact Orthopedic Surgery Diagnoses Primary osteoarthritis of right knee Procedures Large Joint Arthrocentesis Luz Newberry PA-C [address] [place] [address] Phone: tel: fax: Luz Newberry PA-C [address] [place] [address] Phone: tel: fax: Referral ID Status Reason Start Date Expiration Date Visits Re quested Visits Authorized [id number] Closed 11/09/2024 02/08/2026 1 3 Encounter Details Date Type Department Care Team (Late st Contact Info) Description 12/31/2024 1:00 PM EDT Clinical Support [facility] [address] [phone] Berna Fowler PA-C [address] [place] [address] Primary osteoarthritis of right knee (Primary Dx) Social History Tobacco Use Types Packs/Day Years [...] PM EDT documented as of this encounter Progress Notes * Sharon Munguia MA - 12/31/2024 1:00 PM EDTAssociated Order(s): - Large Joint Arthrocentesis: R knee Procedure - Large Joint Arthrocentesis: R knee on 12/31/2024 12:58 PM Indications: pain Details: 21 G needle, anterior approach Medications: 20 mg Sodium Hyaluronate (Viscosup) 20 MG/2ML Outcome: tolerated well, no immediate complications Procedure, treatment alternatives, risks and benefits explained, specific risks discussed. Consent was given by the patient. Immediately prior to procedure a time out was called to verify the correctpatient, procedure, equipment, marketing support assistant and site/side marked as required. Patient was prepped and draped in the usual sterile fashion. * Berna Fowler PA-C - 12/31/2024 1:00 PM EDT Procedure Note: I discussed with the [...] Description 02/21/2025 12:30 PM EST Office Visit [facility] [address] [place] [address] Stevo Tineo PA [address] [place] [address] 06/14/2025 10:00 AM EST Telemedicine [facility] 3000 [facility] 240 [place] [address] Godfrey Perera, YANN [address] [place] [address] documented as of this encounter Procedures Procedure Name Priority Date/Time Associated Diagnosis Comments [place] ARTHROCENTESIS ASPIR&/INJ MAJOR JT/BURSA W/O US Routine 12/31/2024 12:58 PM EDT Primary osteoarthritis of right knee documented in this encounter Results * TX ARTHROCENTESIS ASPIR&/INJ MAJOR JT/BURSA W/O US (12/31/2024 12:58 PM EDT) Narrative Sharon Munguia MA - 12/31/2024 12:58 PM EDT Sharon Munguia MA 12/31/2024 1:23 PM - Large Joint Arthrocentesis: R knee on 12/31/2024 12:58 PM Indications: pain Details: 21 G needle, anterior approach Medications: 20 mg Sodium Hyaluronate (Viscosup) 20 MG/2ML Outcome: tolerated well, no immediate complications Procedure, treatment alternatives, risks and benefits explained, specific risks discussed. Consent was given by the patient. Immediately prior to procedure a time out was called to verify the correct patient, procedure, equipment, marketing support assistant and site/side marked as required. Patient was prepped and draped in the usual sterile fashion. Berna Fowler PA-C PROCEDURE/MINOR SURGICA L ORDERABLES Final Result documented in this encounter Visit Diagnoses Diagnosis Primary osteoarthritis of right knee- Primary documented in this encounter Administered Medications Inactive Administered Medications - up to 3 most recent administrations Medication Order MAR Action Action Date Dose Rate Site Sodium Hyaluronate (Viscosup) (EUFLEXXA) injection 20 mg 20 mg, One-Time Injection, Starting on Fri12/31/24 at 1258, For 1 doseIndications:Primary osteoarthritis of right knee Given 12/31/2024 12:58 PM EDT 20 mg Knee Right documented in this encounter Additional Health Concerns Assessment Noted Time PHQ-2 Depression Total Score: 4 07/02/19 24 2:00 PM EDT documented as of this encounter Care Teams Cash Reconciliation Specialist Relationship Specialty Start Date End Date Stevo Tineo PA [address] [place] [address] PCP - General Physician Battery Assembler Plastic 01/22/23 documented as of this encounter
--- OUTSIDE RECORDS SUMMARY | 2025-01-07 11:30 | XMS_ITS | Encounter Summary ---
Author Organization [facility] Address [address] [place] [id number] Care Team Providers Care Cementing Bulk Material Operator Name Role Phone Stevo Tineo Primary Care Provider [phone] Reason for Visit * Reason Comments Injections 1 week follow up Rig ht Knee Euflexxa #3 injection * Medical Care (Routine) - Closed Specialty Diagnoses / Procedures Referred By Contac t Referred To Contact Orthopedic Surgery Diagnoses Primary osteoarthritis of right knee Procedures Large Joint Arthrocentesis Luz Newberry PA-C [address] [place] [address] Phone: tel: fax: Luz Newberry PA-C [address] [place] [address] Phone: tel: fax: Referral ID Status Reason Start Date Expiration Date Visits Re quested Visits Authorized [id number] Closed 11/09/2024 02/08/2026 1 3 Encounter Details Date Type Department Care Team (Late st Contact Info) Description 01/07/2025 11:30 AM EDT Clinical Support [facility] [address] [address] Berna Fowler PA-C [address] [place] [address] Primary osteoarthritis of right knee (Primary Dx) [...] as of this encounter Progress Notes * Tobias Bach MA - 01/07/2025 11:30 AM EDTAssociated Order(s): - Large Joint Arthrocentesis: R knee Procedure - Large Joint Arthrocentesis: R knee on 01/07/2025 11:13 AM Indications: pain Details: 21 G needle, anterolateral approach Medications: 20 mg Sodium Hyaluronate (Viscosup) 20 MG/2ML Outcome: tolerated well, no immediate complications Procedure, treatment alternatives, risks and benefits explained, specific risks discussed. Consent was given by the patient. Immediately prior to procedure a time out was called to verify the correctpatient, procedure, equipment, media production support manager and site/side marked as required. Patient was prepped and draped in the usual sterile fashion. * Berna Fowler PA-C - 01/07/2025 11:30 AM EDT Procedure Note: I discussed [...] dressing was placed over the injection sites. Follow-up: 6 months documented in this encounter Plan of Treatment Upcoming Encounters Date Type Department Care Team (Late st Contact Info) Description 02/21/2025 12:30 PM EST Office Visit [facility] [address] [place] [place] [address] Stevo Tineo PA [address] [place] [address] 06/14/2025 10:00 AM EST Telemedicine [facility] 3000 [facility] 240 [place] [address] Godfrey Perera, TECHNICIAN TRAINEE [address] [place] [address] documented as of this encounter Procedures Procedure Name Priority Date/Time Associated Diagnosis Comments ME ARTHROCENTESIS ASPIR&/INJ MAJOR JT/BURSA W/O US Routine 01/07/2025 11:13 AM EDT Primary osteoarthritis of right knee documented in this encounter Results * ME ARTHROCENTESIS ASPIR&/INJ MAJOR JT/BURSA W/O US (01/07/2025 11:13 AM EDT) Narrative Tobias Bach MA - 01/07/2025 11:13 AM EDT Tobias Bach MA 01/07/2025 11:35 AM - Large Joint Arthrocentesis: R knee on 01/07/2025 11:13 AM Indications: pain Details: 21 G needle, anterolateral approach Medications: 20 mg Sodium Hyaluronate (Viscosup) 20 MG/2ML Outcome: tolerated well, no immediate complications Procedure, treatment alternatives, risks and benefits explained, specific risks discussed. Consent was given by the patient. Immediately prior to procedure a time out was called to verify the correct patient, procedure, equipment, media production support manager and site/side marked as required. Patient was prepped and draped in the usual sterile fashion. us Berna Fowler PA-C PROCEDURE/MINOR SURGICA L ORDERABLES Final Result documented in this encounter Visit Diagnoses Diagnosis Primary osteoarthritis of right knee- Primary documented in this encounter Administered Medications Inactive Administered Medications - up to 3 most recent administrations Medication Order MAR Action Action Date Dose Rate Site Sodium Hyaluronate (Viscosup) (EUFLEXXA) injection 20 mg 20 mg, One-Time Injection, Starting on Fri01/07/25 at 1113, For 1 doseIndications:Primary osteoarthritis of right knee Given 01/07/2025 11:13 AM EDT 20 mg Knee Right documented in this encounter Additional Health Concerns Assessment Noted Time PHQ-2 Depression Total Score: 4 07/02/19 24 2:00 PM EDT documented as of this encounter Care Teams Cementing Bulk Material Operator Relationship Specialty Start Date End Date Stevo Tineo PA [address] [place] [address] PCP - General Physician Tire Service Technician 01/22/23 documented as of this encounter
[2025-01-13 18:14] VITALS: BP 147/90; PULSE 120; RESP 20; TEMP 37.1; O2SAT 96; BMI 56.1
--- OUTSIDE RECORDS SUMMARY | 2025-01-13 18:21 | XMS_ITS | Encounter Summary ---
Author Organization [facility] Address [address] [place] [address] Care Team Providers Care Java Security Engineer Name Role Phone Stevo Tineo Primary Care Provider [phone] Reason for Visit * Reason Onset Date Comments My chart/ Refill 12/23/2024 Encounter Details Date Type Department Care Team (Late st Contact Info) Description 12/23/2024 Telephone [facility] [address] [place] [address] Stevo Tineo PA [address] [place] [address] My chart/ Refill Social History Tobacco Use Types Packs/Day Years [...] PM EDT documented as of this encounter Miscellaneous Notes * Telephone Encounter - Lillian Johns MA - 12/23/2024 11:29 AM EDT My chart message Im doing Ok on the 0.5 mg weekly dose documented in this encounter Plan of Treatment Upcoming Encounters Date Type Department Care Team (Late st Contact Info) Description 02/21/2025 12:30 PM EST Office Visit [facility] 210 [place] [address] Stevo Tineo PA [address] [place] [address] 06/14/2025 10:00 AM EST Telemedicine [facility] SLEEP MEDICINE 3000 [facility] 240 [place] [address] Godfrey Perera, SYSTEMS CHECKOUT MECHANIC [address] [place] [address] documented as of this encounter Visit Diagnoses Diagnosis Type 2 diabetes mellitus without complication, without long-term current use of insulin documented in this encounter Additional Health Concerns Assessment Noted Time PHQ-2 Depression Total Score: 4 07/02/19 24 2:00 PM EDT documented as of this encounter Care Teams Java Security Engineer Relationship Specialty Start Date End Date Stevo Tineo PA [address] [place], [place] [phone] PCP - General Physician Associate Store Manager 01/22/23 documented as of this encounter
--- OUTSIDE RECORDS SUMMARY | 2025-01-13 18:21 | XMS_ITS | Encounter Summary ---
Author Organization [facility] Address [address] [place] [address] Care Team Providers Care Lumber Chain Offbearer Name Role Phone Stevo Tineo Primary Care Provider [phone] Encounter Details Date Type Department Care Team (Latest Contact Info) Description 11/29/2024 Travel Social History Tobacco Use Types Packs/Day Years [...] Description 02/21/2025 12:30 PM EST Office Visit [facility] [address] [place] [phone] Stevo Tineo PA [address] [place], [place] [address] 06/14/2025 10:00 AM EST Telemedicine [facility] 3000 [facility] 240 [place] [address] Godfrey Perera, TUBE MILL OPERATOR [address] [place] [address] documented as of this encounter Visit Diagnoses Not on filedocumented in this encounter Additional Health Concerns Assessment Noted Time PHQ-2 Depression Total Score: 4 07/02/19 24 2:00 PM EDT documented as of this encounter Care Teams Lumber Chain Offbearer Relationship Specialty Start Date End Date Stevo Tineo PA [address] [facility] [place] [place] [address] PCP - General Physician Image Consultant 01/22/23 documented as of this encounter
--- OUTSIDE RECORDS SUMMARY | 2025-01-13 18:21 | XMS_ITS | Encounter Summary ---
Author [facility] Address [address] [place] [address] Care Team Providers Care Rubber Cutting Machine Tender Name Role Phone Stevo Tineo Primary Care Provider [phone] Encounter Details Date Type Department Care Team (Latest Contact Info) Description 12/31/2024 Travel Social History Tobacco Use Types Packs/Day [...] PM EDT documented as of this encounter Plan of Treatment Upcoming Encounters Date Type Department Care Team (Late st Contact Info) Description 02/21/2025 12:30 PM EST Office Visit [facility] [address] [place] [address] Stevo Tineo PA [address] [place] [address] 06/14/2025 10:00 AM EST Telemedicine [facility] SLE[facility] 3000 [facility] 240 [place] [address] Godfrey Perera, LATHER APPRENTICE [address] [place] [address] documented as of this encounter Visit Diagnoses Not on filedocumented in this encounter Additional Health Concerns Assessment Noted Time PHQ-2 Depression Total Score: 4 07/02/19 24 2:00 PM EDT documented as of this encounter Care Teams Rubber Cutting Machine Tender Relationship Specialty Start Date End Date Stevo Tineo PA [address] [place] [address] PCP - General Physician Tooling Specialist 01/22/23 documented as of this encounter
--- OUTSIDE RECORDS SUMMARY | 2025-01-13 18:21 | XMS_ITS | Encounter Summary ---
Author Organization [facility] Address [address] [place] [address] Care Team Providers Care Blanker Press Operator Name Role Phone Stevo Tineo Primary Care Provider Reason for Visit * Reason Onset Date Comments Med Management 12/27/2024 Encounter Details Date Type Department Care Team (Late st Contact Info) Description 12/27/2024 Telephone [facility] 210 [facility] [place] [address] Stevo Tineo PA [address] [place] [address] Med Management Social History Tobacco Use Types Packs/Day Years [...] encounter Miscellaneous Notes * Telephone Encounter - Yusra Cosby MA - 12/30/2024 1:50 PM EDT Yes, tolerating fine. Agrees to move up to 1mg. * Telephone Encounter - Stevo Tineo PA - 12/28/2024 3:37 PM EDT Patient last prescribed the 0.5 mg, if he is tolerating it well can go up to the 1 mg weekly to further help with weight management. Let me know * Telephone Encounter - Ama Hayden RegSched Rep - 12/28/2024 2:49 PM EDT PATIENT IS CALLING BACK FOR AN UPDATE ABOUT OZEMPIC. WHAT DOSE IS PATIENT SUPPOSE T TAKE. -[facility] [address] [phone] FX * Telephone Encounter - Shraddha Jack RegSched Rep - 12/27/2024 11:42 AM EDT Caller: Anthony Maldonado Relationship: Self Best call back number: [phone] Which medication are you concerned about: Semaglutide,0.25 or 0.5MG/DOS, (OZEMPIC) 2 MG/1.5ML solution pen-injector Who prescribed you this medication: Stevo Tineo PA What are your concerns: REQUESTING CLARIFICATION documented in this encounter Plan of Treatment Upcoming Encounters Date Type Department Care Team (Late st Contact Info) Description 02/21/2025 12:30 PM EST Office Visit [facility] [address] [place], [place] [address] Stevo Tineo PA [address] [place] [address] 06/14/2025 10:00 AM EST Telemedicine [facility] 3000 [facility] 240 [place] [address] Godfrey Perera, CIVIL ENGINEERING INTERN [address] [place] [address] documented as of this encounter Visit Diagnoses Diagnosis Type 2 diabetes mellitus without complication, without long-term current use of insulin documented in this encounter Additional Health Concerns Assessment Noted Time PHQ-2 Depression Total Score: 4 07/02/19 24 2:00 PM EDT documented as of this encounter Care Teams Blanker Press Operator Relationship Specialty Start Date End Date Stevo Tineo PA [address] [place], [place] [address] PCP - General Physician Programmer Operator Numerical Control 01/22/23 documented as of this encounter
--- OUTSIDE RECORDS SUMMARY | 2025-01-13 18:21 | XMS_ITS | Encounter Summary ---
Author Organization [facility] Address [address] [place] [address] Care Team Providers Care Catia Designer Name Role Phone Stevo Tineo Primary Care Provider [phone] Reason for Referral * Physical Therapy (Routine) - Closed Specialty Diagnoses / Procedures Referred By Myla wooten Referred To Contact Physical Therapy Diagnoses Acute right-sided low back pain with right-sided sciatica Procedures FL OFFICE/OUTPATIENT NEW MODERATE MDM 45 MINUTES Stevo Tineo PA [address] [place] [address] Phone: tel: fax: [facility] [address] [place] [address] Phone: tel: fax: Referral ID Status Reason Start Date Expiration Date V isits Requested Visits Authorized [id number] Closed Specialty Services Required 12/05/2024 03/06/2026 1 1 Encounter Details Date Type Department Care Team (Late st Contact Info) Description 12/05/2024 Results Follow-Up [facility] [address] [place] [address] Stevo Tineo PA [address] [place] [address] Social History Tobacco Use Types Packs/Day Years [...] Description 02/21/2025 12:30 PM EST Office Visit [facility] [address] [place] [address] Stevo Tineo PA [address] [place] [address] 06/14/2025 10:00 AM EST Telemedicine [facility] 3000 [facility] 240 [place] [address] Godfrey Perera, HOOKER LASTER [address] [place] [address] Scheduled Referrals Name Type Priority Associated Diagnoses Order Schedule Ambulatory Referral to Physical Therapy for Evaluation & Treatment Outpatient Referral Routine Acute right-sided low back pain with right-sided sciatica Ordered: 12/05/2024 documented as of this encounter Visit Diagnoses Diagnosis Acute right-sided low back pain with right-sided sciatica- Primary documented in this encounter Additional Health Concerns Assessment Noted Time PHQ-2 Depression Total Score: 4 07/02/19 24 2:00 PM EDT documented as of this encounter Care Teams Catia Designer Relationship Specialty Start Date End Date Stevo Tineo PA [address] [place] [address] PCP - General Physician Senior Speech Pathologist 01/22/23 documented as of this encounter
--- OUTSIDE RECORDS SUMMARY | 2025-01-13 18:21 | XMS_ITS | Encounter Summary ---
[facility] Address [address] [place] [address] Care Team Providers Care Medical Reviewer Name Role Phone Stevo Tineo Primary Care Provider [phone] Reason for Visit * Reason Comments Med Refill Encounter Details Date Type Department Care Team (Late st Contact Info) Description 12/01/2024 Refill [facility] MEDICINE [address] [address] Stevo Tineo PA [address] [place] [address] Vitamin D deficiency Social History Tobacco Use Types Packs/Day Years [...] Description 02/21/2025 12:30 PM EST Office Visit [facility] MEDICINE [address] [place] [address] Stevo Tineo PA [address] [address] 06/14/2025 10:00 AM EST Telemedicine [facility] SLE[facility] 3000 [facility] 240 [place] [address] Godfrey Perera, NETWORK MGR [address] [place] [address] documented as of this encounter Visit Diagnoses Diagnosis Vitamin D deficiency documented in this encounter Additional Health Concerns Assessment Noted Time PHQ-2 Depression Total Score: 4 07/02/19 24 2:00 PM EDT documented as of this encounter Care Teams Medical Reviewer Relationship Specialty Start Date End Date Stevo Tineo PA [address] [place] [address] PCP - General Physician General Assignment Reporter 01/22/23 documented as of this encounter
--- OUTSIDE RECORDS SUMMARY | 2025-01-13 18:21 | XMS_ITS | Encounter Summary ---
Author Organization [facility] Address [address] [place] [address] Care Team Providers Care Gaming Dealer Name Role Phone Stevo Tineo Primary Care Provider [phone] Encounter Details Date Type Department Care Team (Latest Contact Info) Description 12/24/2024 Travel Social History Tobacco Use Types Packs/Day [...] Description 02/21/2025 12:30 PM EST Office Visit [facility] [address] [place] [address] Stevo Tineo PA [address] [place], [place] [address] 06/14/2025 10:00 AM EST Telemedicine [facility] SLEEP MEDICINE [address] [address] Godfrey Perera, QA INTERNSHIP [address] [place] [address] documented as of this encounter Visit Diagnoses Not on filedocumented in this encounter Additional Health Concerns Assessment Noted Time PHQ-2 Depression Total Score: 4 07/02/19 24 2:00 PM EDT documented as of this encounter Care Teams Gaming Dealer Relationship Specialty Start Date End Date Stevo Tineo PA [address] [place] [address] PCP - General Physician Case Investigator 01/22/23 documented as of this encounter
--- OUTSIDE RECORDS SUMMARY | 2025-01-13 18:21 | XMS_ITS | Encounter Summary ---
Author Organization [facility] Address [address] [place] [address] Care Team Providers Care Business Librarian Name Role Phone Stevo Tineo Primary Care Provider [phone] Reason for Visit * Reason Onset Date Comments Results 12/03/2024 Encounter Details Date Type Department Care Team (Late st Contact Info) Description 12/03/2024 Telephone [facility] MEDICINE [address] [place] [address] Stevo Tineo PA [address] [place] [address] Results Social History Tobacco Use Types Packs/Day Years [...] encounter Miscellaneous Notes * Telephone Encounter - Hayley Justice RegSched Rep - 12/03/2024 12:57 PM EDT Caller: Anthony Maldonado Relationship: Self Best call back number: [phone] What test was performed: XRAYS OF LOWER BACK When was the test performed: 11/29/2024 Where was the test performed: [facility] Additional notes: THE PATIENT HAS NOT SEEN THE RESULTS IN MYCHART THE PATIENT WOULD LIKE TO KNOW IFTHAT HAS BEEN REVIEWED YET PLEASE CALL PATIENT TO DISCUSS documented in this encounter Plan of Treatment Upcoming Encounters Date Type Department Care Team (Late st Contact Info) Description 02/21/2025 12:30 PM EST Office Visit [facility] MED[facility] [address] [place] [address] Stevo Tineo PA [address] [place] [address] 06/14/2025 10:00 AM EST Telemedicine [facility] SLE[facility] MED[facility] 3000 [facility] 240 [place] [address] Godfrey Perera, SHOEMAKER CUSTOM [address] [place] [id number] documented as of this encounter Visit Diagnoses Not on filedocumented in this encounter Additional Health Concerns Assessment Noted Time PHQ-2 Depression Total Score: 4 07/02/19 24 2:00 PM EDT documented as of this encounter Care Teams Business Librarian Relationship Specialty Start Date End Date Stevo Tineo PA [address] [place] [address] PCP - General Physician Senior Officer 01/22/23 documented as of this encounter
--- OUTSIDE RECORDS SUMMARY | 2025-01-13 18:21 | XMS_ITS | Encounter Summary ---
[facility] Address [address] [place] [address] Care Team Providers Care Seismograph Operator Name Role Phone Sarah Tineo Primary Care Provider Reason for Visit * Reason Onset Date Comments MEDICATION CONCERN 12/01/2024 Encounter Details Date Type Department Care Team (Late st Contact Info) Description 12/01/[address] [facility] [address] [facility] [place] [address] Sarah Tineo PA 210 [place] [address] MEDICATION CONCERN Social History Tobacco Use Types Packs/Day Years [...] encounter Miscellaneous Notes * Telephone Encounter - Liyah Walls LPN - 12/01/2024 2:51 PM EDT Pt will call pharm back. He was confused by they would not send rx from 11/29. * Telephone Encounter - Corry Treviño RegSched Rep - 12/01/2024 2:35 PM EDT Caller: Anthony Maldonado Relationship: Self Best call back number: Telephone Information: Which medication are you concerned about: Semaglutide,0.25 or 0.5MG/DOS, (OZEMPIC) 2 MG/1.5ML solution pen-injector Who prescribed you this medication: SARAH TINEO What are your concerns: PATIENT WAS SEEN ON FRIDAY AND HAD THE DOSE OF HIS PRESCRIPTION CHANGE FROMTHE .25MG DOSE TO THE 0.5MG DOSE. PATIENTS PHARMACY ADVISED THEY CANNOT FILL THAT PRESCRIPTION BEFORE THE NEXT DELIVERY DATE WITHOUT THE PROVIDERS APPROVAL. PATIENT IS REQUESTING PROVIDER APPROVAL BESENT TO THE PHARMACY SO THE PATIENT CAN GET HIS PRESCRIPTION FILLED. PLEASE CALL TO DISCUSS IF NEEDED. documented in this encounter Plan of Treatment Upcoming Encounters Date Type Department Care Team (Late st Contact Info) Description 02/21/2025 12:30 PM EST Office Visit [facility] [address] [facility] [place] [address] Sarah Tineo PA 210 [place] [address] 06/14/2025 10:00 AM EST Telemedicine [facility] 3000 [facility] [address] [place] [address] Godfrey Perera, YANN [address] [place] [address] documented as of this encounter Visit Diagnoses Not on filedocumented in this encounter Additional Health Concerns Assessment Noted Time PHQ-2 Depression Total Score: 4 07/02/19 24 2:00 PM EDT documented as of this encounter Care Teams Seismograph Operator Relationship Specialty Start Date End Date Sarah Tineo PA [address] [place] [address] PCP - General Physician Settlement Processor 01/22/23 documented as of this encounter
--- OUTSIDE RECORDS SUMMARY | 2025-01-13 18:22 | XMS_ITS | Clinical Summary ---
Author Organization [facility] Address [address] [place] [address] Care Team Providers Care Ob Scrub Tech Name Role Phone Stevo Tineo Primary Care Provider [phone] Allergies Active Allergy Reactions Criticality Noted Date Comments Cefaclor Hives Medium 01/22/2023 Guaifenesin-Codeine Hives Medium 01/22/2023 Metformin GI Intolerance 07/26/2024 Penicillins Hives 01/22/2023 As child Medications * This document contains information received from the source organization and may not represent a complete record from that organization. buPROPion XL (WELLBUTRIN XL) 300 MG 24 hr tablet Take 1 tablet by mouth Every Morning. 06/12/19 24 Active cloNIDine (CATAPRES) 0.1 MG tablet Take 1 tablet by mouth Every Night. 06/10/19 24 Active levocetirizine (XYZAL) 5 MG tabletIndicatio ns:Seasonal allergies TAKE 1 TABLET BY MOUTH EVERY EVENING 30 tablet 10 03/05/20 24 Active rosuvastatin (CRESTOR) 10 MG tabletIndicatio ns:Hypercholest erolemia TAKE 1 TABLET BY MOUTH ONCE DAILY 30 tablet 10 06/07/19 25 Active lisinopril (PRINIVIL,ZESTR IL) 20 MG tablet TAKE 1 TABLET BY MOUTH DAILY 30 tablet 10 07/07/19 25 Active acetaminophen (TYLENOL) 650 MG 8 hr tabletIndicatio ns:Chronic pain of right knee Take 1 tablet by mouth Every 8 (Eight) Hours As Needed for Mild Pain or Moderate Pain. 90 tablet 5 07/27/19 25 Active vitamin D (ERGOCALCIFEROL ) 1.25 MG (19015 UT) capsule capsuleIndicati ons:Vitamin D deficiency Take 1 capsule by mouth 1 (One) Time Per Week. 4 capsule 11 11/30/19 25 Active omeprazole (priLOSEC) 20 MG capsuleIndicati ons:Gastroesoph ageal reflux disease, unspecified whether esophagitis present Take 1 capsule by mouth Daily. 90 capsule 3 11/30/19 25 Active naproxen (NAPROSYN) 500 MG tabletIndicatio ns:Acute right-sided low back pain with right-sided sciatica,Chroni c pain of right knee Take 1 tablet by mouth 2 (Two) Times a Day As Needed for Mild Pain or Moderate Pain. 60 tablet 5 11/30/19 25 Active cyclobenzaprine (FLEXERIL) 10 MG tabletIndicatio ns:Acute right-sided low back pain with right-sided sciatica Take 1 tablet by mouth At Night As Needed for Muscle Spasms. 30 tablet 2 11/30/19 25 Active Semaglutide, 1 MG/DOSE, (Ozempic, 1 MG/DOSE,) 4 MG/3ML solution pen-injectorInd ications:Type 2 diabetes mellitus without complication, without long-term current use of insulin Inject 1 mg under the skin into the appropriate area as directed 1 (One) Time Per Week. 3 mL 2 12/31/19 25 Active montelukast (SINGULAIR) 10 MG tabletIndicatio ns:Mild intermittent asthma without complication TAKE 1 TABLET BY MOUTH EVERY NIGHT 90 tablet 1 01/04/20 25 Active montelukast (SINGULAIR) 10 MG tabletIndicatio ns:Mild intermittent asthma without complication Take 1 tablet by mouth Every Night. 90 tablet 3 01/19/20 24 2024 Discontinued Semaglutide,0.2 5 or 0.5MG/DOS, (OZEMPIC) 2 MG/1.5ML solution pen-injectorInd ications:Type 2 diabetes mellitus without complication, without long-term current use of insulin Inject 0.5 mg under the skin into the appropriate area as directed 1 (One) Time Per Week. 1.5 mL 11/30/19 25 2024 Discontinued(R eorder) Semaglutide,0.2 5 or 0.5MG/DOS, (OZEMPIC) 2 MG/1.5ML solution pen-injectorInd ications:Type 2 diabetes mellitus without complication, without long-term current use of insulin Inject 0.5 mg under the skin into the appropriate area as directed 1 (One) Time Per Week. 1.5 mL 2 12/24/19 25 2024 Discontinued Active Problems Problem Noted Date Diagnosed Date KAMALJIT on CPAP 10/09/2023 Obesity, morbid, BMI 50 or higher 10/09/2023 Leucocytosis 08/26/2023 Mild intermittent asthma without complication Type 2 diabetes mellitus wit hout complication, without long-term current use of insulin 02/09/2023 Primary hypertension 02/09/2023 Attention deficit hyperactiv ity disorder (ADHD), combined type 02/09/2023 Seasonal allergies 02/09/2023 Gastroesophageal reflux disease 02/09/2023 Chronic left shoulder pain 02/09/2023 Hyperlipidemia 02/06/2023 Encounters Date Type Department Care Team Description 01/07/2025 11:30 AM EDT Clinical Support [facility] [address] [facility] [address] [place] [address] Berna Fowler PA-C Primary osteoarthritis of right knee (Primary Dx) 01/07/2025 Travel 01/03/2025 Refill [facility] [address] [place] [address] Stevo Tineo PA Mild intermittent asthma without complication 12/31/2024 1:00 PM EDT Clinical Support [facility] [address] [facility] [address] [place] [address] Berna Fowler PA-C Primary osteoarthritis of right knee (Primary Dx) 12/31/2024 Refill [facility] [address] [place] [address] Stevo Tineo PA Chronic pain of right knee 12/31/2024 Travel 12/27/2024 Telephone [facility] [address] [place] [address] Stevo Tineo PA Med Management 12/24/2024 11:30 AM EDT Clinical Support [facility] [address] [place] [phone] Berna Fowler PA-C Primary osteoarthritis of right knee 12/24/2024 Travel 12/23/2024 Telephone [facility] [address] [place] [address] Stevo Tineo PA My chart/ Refill 12/05/2024 Results Follow-Up [facility] [address] [place] [address] Stevo Tineo PA 12/03/2024 Telephone [facility] [address] [place] [address] Stevo Tineo PA Results 12/01/2024 Refill [facility] [address] [place] [address] Stevo Tineo PA Vitamin D deficiency 12/01/2024 Telephone [facility] [address] [place] [address] Stevo Tineo PA MEDICATION CONCERN 11/29/2024 3:08 PM EDT - 11/29/2024 11:59 PM EDT Hospital Encounter [facility] [address] [place] [address] Stevo Tineo PA Acute right-sided low back pain with right-sided sciatica Discharge Disposition: Home or Self Care 11/29/2024 2:30 PM EDT Office Visit [facility] [address] [place] [address] Stevo Tineo PA Type 2 diabetes mellitus without complication, without long-term current use of insulin (Primary Dx); Acute right-sided low back pain with right-sided sciatica; Vitamin D deficiency; Gastroesophageal reflux disease, unspecified whether esophagitis present; Chronic pain of right knee 11/29/2024 Travel 11/09/2024 Telephone [facility] [address] [facility] [address] [place] [address] Berna Fowler PA-C from Last 3 Months Immunizations Immunization Administration Dates Next Due COVID-19 (YANA) 10/06/2020 COVID-19 (MODERNA) 1st,2nd,3rd Dose Monovalent 1 06/17/2020 COVID-19 (PFIZER) Purple Cap Monovalent 01/16/20 22 COVID-19 (UNSPECIFIED) 02/12/2023 Pneumococcal Conjugate 20-Valent (PCV20) 024 Tdap 01/19/2024 Family History Medical History Relation Name Comments ADD / ADHD Cousin Laura Bipolar disorder Cousin Laura Arthritis Father Jose M Diabetes Father Jose M Asthma Maternal Aunt 1 Josi Developmental Disability Maternal Aunt 1 Josi Learning disabilities Maternal Aunt 1 Josi Asthma Maternal Aunt 2 Juani Anxiety disorder Maternal Grandmother [place] Arthritis Maternal Grandmother [place] COPD Maternal Grandmother [place] Dementia Maternal Grandmother [place] Depression Maternal Grandmother [place] Hyperlipidemia Maternal Grandmother [place] Hypertension Maternal Grandmother [place] Stroke Maternal Grandmother [place] Thyroid disease Maternal Grandmother [place] Cancer Maternal Uncle 1 Kj brando Kidney nephrosis Maternal Uncle 2 Asthma Maternal Uncle 3 Kj Cancer Maternal Uncle 3 Kj Cancer Maternal Uncle 4 Stefano Anxiety disorder Mother Lory Arthritis Mother Lory Asthma Mother Lory Cholelithiasis Mother Lory Depression Mother Lory Developmental Disability Mother Lory Diabetes Mother Lory Fibromyalgia Mother Lory Learning disabilities Mother Lory Arthritis Paternal Grandmother Brittani Thyroid disease Paternal Grandmother Brittani Asthma Sister 1 Martha walker Asthma Sister 2 Martha Relation Name Status Comments Cousin Laura Alive Father Jose M Maternal Aunt 1 Josi Maternal Aunt 2 Juani Maternal Grandmother Felipa Maternal Uncle 1 Kj brando Alive Maternal Uncle 2 Alive Maternal Uncle 3 Kj Maternal Uncle 4 Stefano Mother Lory Paternal Grandmother Brittani Sister 1 Martha walker Sister 2 Martha Social History Tobacco Use Types Packs/Day Years [...] Orientation Straight 07/25/2024 6: 58 PM EDT Last Filed Vital Signs Vital Sign Reading Time Taken Comments Blood Pressure 122/74 11/29/2024 2:19 PM EDT Pulse 80 11/29/2024 2:19 PM EDT Temperature 36.7 C (98 F) 11/29/2024 2:19 PM EDT Respiratory Rate 20 11/29/2024 2:19 PM EDT Oxygen Saturation 98% 07/26/2024 2:05 PM EDT Inhaled Oxygen Concentration - - Weight 217 kg (479 lb 4.8 oz) 12/24/2024 12:01 P M EDT Height 182.9 cm (6' 0.01 ) 11/29/2024 2:19 PM ED T Body Mass Index 64.99 11/29/2024 2:19 PM EDT Plan of Treatment Upcoming Encounters Date Type Department Care Team (Late st Contact Info) Description 02/21/2025 12:30 PM EST Office Visit [facility] [address] [place] [address] Stevo Tineo PA [address] [place] [address] 06/14/2025 10:00 AM EST Telemedicine [facility] [address] [facility] [address] [place] [address] Godfrey Perera, DRAWER MAKER [address] [place] [address] Health Maintenance Due Date Last Done Comments URINE MICROALBUMIN-CREATININ E RATIO (uACR) 1994 DIABETIC FOOT EXAM 11/13/2024 11/14/2023 ANNUAL PHYSICAL 01/18/2025 01/19/2024 HEMOGLOBIN A1C 06/01/2025 11/29/2024, 10/2024, 01/19/2024, Additional history exists LIPID PANEL 07/26/2025 07/26/2024, 12/22, 07/21/2023, Additional history exists DIABETIC EYE EXAM 08/26/2025 08/26/2024, 08/25/2023 TDAP/TD VACCINES (2 - Td or Tdap) 01/18/2034 024 HEPATITIS C SCREENING Completed 01/22/2023 Pneumococcal Vaccine 0-49 Completed 01/19/2024 Hepatitis B Discontinued INFLUENZA VACCINE Discontinued Procedures Procedure Name Priority Date/Time Associated Diagnosis Comments TX ARTHROCENTESIS ASPIR&/INJ MAJOR JT/BURSA W/O US Routine 01/07/2025 11:13 AM EDT Primary osteoarthritis of right knee TX ARTHROCENTESIS ASPIR&/INJ MAJOR JT/BURSA W/O US Routine 12/31/2024 12:58 PM EDT Primary osteoarthritis of right knee TX ARTHROCENTESIS ASPIR&/INJ MAJOR JT/BURSA W/O US Routine 12/24/2024 11:26 AM EDT Primary osteoarthritis of right knee XR SPINE LUMBAR COMPLETE 4+VW Routine 11/29/2024 3:11 PM EDT Acute right-sided low back pain with right-sided sciatica POCT GLYCOSYLATED HEMOGLOBIN (HGB A1C) Routine 11/29/2024 2:38 PM EDT Type 2 diabetes mellitus without complication, without long-term current use of insulin SCANNED - EYE EXAM 08/26/2024 LIPID PANEL Routine 07/26/2024 3:04 PM EDT Type 2 diabetes mellitus with morbid obesity Mixed hyperlipidemia HEPATITIS C ANTIBODY Routine 01/22/2023 10:45 AM EDT Need for hepatitis C screening test from Last 3 Months or Most Recently Relevant to Health Maintenance Results * TX ARTHROCENTESIS ASPIR&/INJ MAJOR JT/BURSA W/O US (01/07/2025 11:13 AM EDT) Tobias Rogel MA - 01/07/2025 11:13 AM EDT Tobias [...] to verify the correct patient, procedure, equipment, ict support technicians and site/side marked as required. Patient was prepped and draped in the usual sterile fashion. Berna MCKEEC PROCEDURE/MINOR SURGICA L ORDERABLES Final Result * TX ARTHROCENTESIS ASPIR&/INJ MAJOR JT/BURSA W/O [...] to verify the correct patient, procedure, equipment, ict support technicians and site/side marked as required. Patient was prepped and draped in the usual sterile fashion. Berna MCKEEC PROCEDURE/MINOR SURGICA L ORDERABLES Final Result * TX ARTHROCENTESIS ASPIR&/INJ MAJOR JT/BURSA W/O US (12/24/2024 [...] to verify the correct patient, procedure, equipment, ict support technicians and site/side marked as required. Patient was prepped and draped in the usual sterile fashion. us Berna Fowler PA-C PROCEDURE/MINOR SURGICA L ORDERABLES Final Result * XR Spine Lumbar Complete 4+VW (11/29/2024 [...] MD 12/03/2024 3:40 PM EDT Workstation ID: [id number] Narrative 12/03/2024 3:40 PM EDT XR SPINE [...] MD 12/03/2024 3:40 PM EDT Workstation ID: [id number] us Stevo TORRES IMG DIAGNOSTIC IMAGING ORDERAB LES Final Result * (ABNORMAL) POC Glycosylated Hemoglobin (Hb A1C) (11/29/2024 2:38 PM EDT) Pathologist [facility] Hemoglobin A1C 5.9(A) 4.5 - 5.7 % [facility] Lot Number [id number] [facility] Expiration Date 07/02/2026 [facility] Blood 11/29/2024 2:38 PM EDT us Stevo TORRES POINT OF CARE TEST ORDERABLES Final Result [facility]
[address] [place] [address], [place] [phone] * EYE EXAM SCANNED (08/26/2024) Anatomical Region Laterality Modality Other us Stevo TORRES CHART REVIEW TABS Final Res ult * (ABNORMAL) Lipid Panel (07/26/2024 3:04 PM EDT) Total Cholesterol 104 100 - 199 mg/dL [facility] Triglycerides 52 0 - 149 mg/dL [facility] HDL Cholesterol 39(L) >39 mg/dL [facility] VLDL Cholesterol Sean 12 5 - 40 mg/dL [facility] LDL Chol Calc (NIH) 53 0 - 99 mg/dL [facility] Blood 07/26/2024 3:04 PM EDT 07/26/2024 Narrative [facility] (AMBULATORY) - 07/27/2024 8:11 AM EDT Performed at: 01 - [address] [id number] Sign Language Translator: Colin Gillette PhD, Phone: [phone] Patient Fasting: Y Stevo TORRES LAB BLOOD ORDERABLES Final Res ult Performing Organization Address City/[facility]/ZIP Co de Phone Number [facility] [address] [place] [address], [place] [phone] [facility] [address] [place], [place] [id number], [place] [phone] * Hepatitis C antibody (01/22/2023 10:45 AM EDT) [facility] Hep C Virus Ab Non Reactive Non Reactive [facility] Comment: HCV antibody alone does not differentiate between previously resolved infection and active infection. Equivocal and Reactive HCV antibody results should be followed up with an HCV RNA test to support the diagnosis of active HCV infection. Blood 01/22/2023 10:4 5 AM EDT 01/22/2023 Narrative [facility] (AMBUL[facility]ORY) - 01/23/2023 6:11 AM EDT Performed at: 02 - [address] [id number] Sign Language Translator: Colin Gillette PhD, Phone: [phone] Patient Fasting: Y Stevo TORRES LAB BLOOD ORDERABLES Final Res ult Performing Organization Address City/[facility]/ZIP Co de Phone Number [facility] (AMBULATORY) [address] [place] [address], [place] [phone] [facility] [address] [place] [address], [place] [phone] from Last 3 Months or Most Recently Relevant to Health Maintenance Insurance [employer] MEDICA[place] Care Teams Ob Scrub Tech Relationship Specialty Start Date End Date Stevo Tineo PA [facility] [place] [address] PCP - General Physician Trolley Car Overhauler 01/22/23
--- OUTSIDE RECORDS SUMMARY | 2025-01-13 18:22 | XMS_ITS | Encounter Summary ---
[facility] Address [address] [place] [address] Care Team Providers Care Academic Services Coordinator Name Role Phone Stevo Tineo Primary Care Provider [phone] Encounter Details Date Type Department Care Team (Late st Contact Info) Description 07/27/2024 Results Follow-Up [facility] [address] [facility] [place] [address] Stevo Tineo PA [address] [facility] [place] [address] Social History Tobacco Use Types Packs/Day Years Used Date Smoking Tobacco: Never Passive Smoke Exposure: Never Smokeless Tobacco: Never Alcohol Use Standard Drinks/Week Comments Not Currently 0 (1 standard drink = 0.6 oz pure alcohol) rarely one drin in 3-6 months PHQ-2 Answer Date Recorded Retired PHQ-9: Brief Depression Severity Measure Score 15 01/22/2023 PHQ-2 Answer Date Recorded Retired PHQ-9: Brief Depression Severity Measure Score 13 07/02/2023 Sex and Gender Information Value Date Recorded Sex Assigned at Male 07/25/2024 6:58 PM EDT Legal Sex Male 12:14 PM EDT Gender Identity Not on file Sexual Orientation Straight 07/25/2024 6: 58 PM EDT documented as of this encounter Plan of Treatment Upcoming Encounters Date Type Department Care Team (Late st Contact Info) Description 02/21/2025 12:30 PM EST Office Visit [facility] MED[facility] [address] [facility] [place] [address] Stevo Tineo PA [address] [place] [address] 06/14/2025 10:00 AM EST Telemedicine [facility] [address] [facility] [address] [place] [phone] Godfrey Perera, ASSISTANT PROFESSOR OF PHILOSOPHY [address] [place] [address] documented as of this encounter Visit Diagnoses Not on filedocumented in this encounter Additional Health Concerns Assessment Noted Time PHQ-2 Depression Total Score: 4 07/02/19 24 2:00 PM EDT documented as of this encounter Care Teams Academic Services Coordinator Relationship Specialty Start Date End Date Stevo Tineo PA [address] [place] [address] PCP - General Physician High Speed Warper Tender 01/22/23 documented as of this encounter
--- OUTSIDE RECORDS SUMMARY | 2025-01-13 18:22 | XMS_ITS | Encounter Summary ---
[facility] [address] [place] [address] Care Team Providers Care Outside Sales Name Role Phone Stevo Tineo Primary Care Provider [phone] Reason for Visit * Reason Comments Med Refill Encounter Details Date Type Department Care Team (Late st Contact Info) Description 12/31/2024 Refill [facility] [address] [place] [address] Stevo Tineo PA [address] [place] [address] Chronic pain of right knee Social History [...] Description 02/21/2025 12:30 PM EST Office Visit [facility] [address] [place] [address] Stevo Tineo PA [address] [place] [address] 06/14/2025 10:00 AM EST Telemedicine [facility] [address] [facility] [address] [place] [address] Godfrey Perera, COLLECTION SPECIALIST [address] [place] [address] documented as of this encounter Visit Diagnoses Diagnosis Chronic pain of right knee documented in this encounter Additional Health Concerns Assessment Noted Time PHQ-2 Depression Total Score: 4 07/02/19 24 2:00 PM EDT documented as of this encounter Care Teams Outside Sales Relationship Specialty Start Date End Date Stevo Tineo PA [address] [place] [address] PCP - General Physician Ice Cream Scooper 01/22/23 documented as of this encounter
--- OUTSIDE RECORDS SUMMARY | 2025-01-13 18:22 | XMS_ITS | Encounter Summary ---
[facility] Address [address] [place] [address] Care Team Providers Care Supervisor In Circuit Testing Name Role Phone Stevo Tineo Primary Care Provider [phone] Reason for Visit * Reason Comments Med Refill Encounter Details Date Type Department Care Team (Late Contact Info) Description 01/03/2025 Refill [facility] MED[facility]INE [address] [place] [address] Stevo Tineo PA [address] [place] [address] Mild intermittent asthma without complication Social History Tobacco Use Types Packs/Day Years [...] EST Office Visit [facility] MED[facility]INE [address] [place] [address] Stevo Tineo PA [address] [place] [address] 06/14/2025 10:00 AM EST Telemedicine [facility] [address] [facility] [address] [place] [address] Godfrey Perera, LAN ADMINISTRATOR [address] [place] [address] documented as of this encounter Visit Diagnoses Diagnosis Mild intermittent asthma without complication documented in this encounter Additional Health Concerns Assessment Noted Time PHQ-2 Depression Total Score: 4 07/02/19 24 2:00 PM EDT documented as of this encounter Care Teams Supervisor In Circuit Testing Relationship Specialty Start Date End Date Stevo Tineo PA [address] [place] [address] PCP - General Physician Football Scout 01/22/23 documented as of this encounter
--- OUTSIDE RECORDS SUMMARY | 2025-01-13 18:22 | XMS_ITS | Encounter Summary ---
[facility] Address [address] [place] [address] Care Team Providers Care Direct Support Worker Name Role Phone Stevo Tineo Primary Care Provider [phone] Encounter Details Date Type Department Care Team (Latest Contact Info) Description 01/07/2025 Travel Social History Tobacco Use Types Packs/Day [...] 02/21/2025 12:30 PM EST Office Visit [facility] [address] [place] [address] Stevo Tineo PA [address] [place] [address] 06/14/2025 10:00 AM EST Telemedicine [facility] [address] [phone] Godfrey Perera, SHAFT TENDER [address] [place] [address] documented as of this encounter Visit Diagnoses Not on filedocumented in this encounter Additional Health Concerns Assessment Noted Time PHQ-2 Depression Total Score: 4 07/02/19 24 2:00 PM EDT documented as of this encounter Care Teams Direct Support Worker Relationship Specialty Start Date End Date Stevo Tineo PA [address] [place] [place] [address] PCP - General Physician Night Shift 01/22/23 documented as of this encounter
--- OUTSIDE RECORDS SUMMARY | 2025-01-13 18:22 | XMS_ITS | Encounter Summary ---
Author Organization [facility] Address [address] [place] [address] Care Team Providers Care Coordinator Integrated Marketing Name Role Phone Stevo Tineo Primary Care Provider Reason for Visit * Reason Comments Med Refill Encounter Details Date Type Department Care Team (Late st Contact Info) Description 01/08/2024 Refill [facility] [address] [facility] [place] [address] Stevo Tineo PA [address] [place] [address] Vitamin D deficiency Social History [...] Description 02/21/2025 12:30 PM EST Office Visit [facility] [address] [place] [address] Stevo Tineo PA [address] [place] [address] 06/14/2025 10:00 AM EST Telemedicine [facility] [address] [facility] [address] [place] [address] Godfrey Perera, BOOKBINDER CHIEF [address] [place] [address] documented as of this encounter Visit Diagnoses Diagnosis Vitamin D deficiency documented in this encounter Additional Health Concerns Assessment Noted Time PHQ-2 Depression Total Score: 4 07/02/19 24 2:00 PM EDT documented as of this encounter Care Teams Coordinator Integrated Marketing Relationship Specialty Start Date End Date Stevo Tineo PA [address] [place] [address] PCP - General Physician Optometry Professor 01/22/23 documented as of this encounter
[2025-01-13 18:42] LABS: Coronavirus 19, PCR Not Detected (NotDetected); Influenza A, PCR Not Detected (NotDetected); Influenza B, PCR Not Detected (NotDetected)
[2025-01-13 19:49] LABS: Coronavirus 19, PCR Not Detected (NotDetected); Influenza A, PCR Not Detected (NotDetected); Influenza B, PCR Not Detected (NotDetected)
[2025-01-13] MEDS: AZITHROMYCIN 250MG TABLET 500 MG PO (20:04)
[2025-01-13] MEDS: DEXAMETHASONE 4MG/ML 5ML MDV 8 MG IM (20:04)
[2025-01-13] MEDS: ACETAMINOPHEN 500MG TAB 1000 MG PO (20:04)
--- NOTE | 2025-01-13 20:26 | ED_ITS ---
<Statement entered by Kg Mcfarlane MD - 01/14/25 02:16> I was consulted by the RONALD, and we discussed the complexity of the problems being addressed. I approve the treatment and management plan for this patient's care in the emergency department, thus performing a substantive portion of the medical decision making. Kg Mcfarlane MD Discharge Plan Disposition Patient Disposition: Home, Self-Care Prescriptions Prescriptions: New azithromycin 250 mg tablet 250 mg PO DAILY 5 Days Qty: 5 0RF No Action clindamycin HCl 300 mg capsule 300 mg PO Q8H Qty: 30 0RF benzonatate 100 mg capsule 100 mg PO TIDP PRN (Reason: Cough) Qty: 30 0RF mupirocin 2 % ointment 1 applic topical TID 7 Days Qty: 15 0RF Referrals Follow up/Referrals: Stevo Tineo PA [Primary Care Provider, Medical] - See instructions Activity Restrictions/Add. Instructions Additional Instructions/Restrictions: Increase fluids and rest. Take meds as directed. Also take Tylenol and ibuprofen for fever or pain. Return to ED for any problems or concerns. Clinical Impressions Clinical Impression: Otitis media, Upper respiratory infection Instructions Patient Instructions: Middle Ear Infections (Alternative Therapy), DI for Viral Upper Respiratory Infection -- Adult Print Language Print Language: New Zealander Discharge ED Provider: Kg Mcfarlane General Adult HPI General Chief complaint: Upper Respiratory Infection Stated complaint: cough, soa Time Seen by Provider: 01/13/25 19:26 Mode of Arrival: Ambulatory Source of Information: Patient Description of Symptoms (Recalled from ER Triage Doc. by RN): Patient states that he has had a cough, sore throat, and congestion since Friday01/11/25. No fever. History of Present Illness HPI narrative: 39-year-old male presents to the ED today for complaint of cough, sore throat, and congestion that all started Friday. He also has bodyaches and nausea. He also has ear pain bilaterally patient denies fevers. No chest pain or shortness of breath. He does complain of difficulty breathing through his nose however. He initially described this of shortness of breath but then clarified that it is not trouble breathing and his chest has trouble breathing in his nose Related Data Previous Rx's ?Medication ?Instructions ?Recorded benzonatate 100 mg capsule 100 mg PO TIDP PRN Cough #3 0 caps 05/13/24 clindamycin HCl 300 mg capsule 300 mg PO Q8H #30 caps 09/01/23 mupirocin 2 % topical ointment 1 applic topical TID 7 days #15 09/01/23 grams azithromycin 250 mg tablet 250 mg PO DAILY 5 days #5 t abs 01/13/25 Allergies Allergy/AdvReac Type Severity Reaction Status Date / Time cefaclor (From [facility]) Allergy Unknown Verified 01/13/25 18:17 allergy reaction Penicillins Allergy Unknown Verified 01/13/25 18:17 allergy reaction PFSH [facility] Disclaimer: The information contained in this section may have been updated after the patient was seen, as this information can be updated by other users. Social History (Updated 12/16/22 @ 21:24 by Tyrone Teixeira MD) Smoking Status: Never smoker alcohol intake: never current occupational status: unemployed Travel in the last 8 weeks?: None Have you lived/traveled outside [place] in past 30 days?: No Contact w/someone who lives/traveled outside US past 30 days?: No Exposure to someone with infectious disease in past 14 days?: No Do you have a fever (greater than 100.4 F or 38 C)?: No Have you tested positive for COVID-19?: No Exposed to someone with COVID-19 in past 14 days?: No Do you have a sore throat?: No Do you have a cough?: No Do you have any weakness?: No Do you have any diarrhea?: No Are you experiencing any unusual bleeding?: No Do you have any muscle aches/pain?: No Do you have any abdominal pain?: No Are you experiencing loss of taste or smell?: No ROS Obtained: Yes Systems reviewed as appropriate & no additional complaints except as documented Constitutional Constitutional: Reports as per HPI Physical Exam General General appearance: alert and in no apparent distress Head Head exam: normocephalic Eye Eye exam: Present PERRL and EOMI ENT ENT exam: Present normal oropharynx, mucous membranes moist and TM's normal bilaterally (Bilateral ears red and inflamed) Neck Neck exam: Present full ROM and trachea midline Respiratory Respiratory exam: Present normal lung sounds bilaterally Cardiovascular Cardiovascular exam: Present normal rhythm, tachycardia, normal heart sounds, +S1 and +S2 Abdominal Exam Abdominal exam: Present soft and normal bowel sounds Extremities Exam Extremities exam: Present full ROM and normal capillary refill Neurological Exam Neurological exam: Present alert and oriented X3 Skin Skin exam: Present warm, dry and intact Medical Decision Making Medical Records Screening: Per USPSTF and CDC recommendations, given the prevalence of disease in our region, it is our hospital?s policy to screen for HIV and viral Hepatitis for al l patients aged 18 and over and those with ongoing risk factors. Osmin Inquiry Pt receiving controlled substance: No Osmin was queried for this patient: No Vital Signs: 01/13/25 18:14 01/13/25 20:38 Temperature 98.8 F 98.8 F Temperature Source Oral Pulse Rate 108 H Pulse Rate [Right Brachial] 120 H Respiratory Rate 20 22 Blood Pressure 154/86 H Blood Pressure [Right Arm] 147/90 H Blood Pressure Mean [Right Arm] 109 Blood Pressure Source [Right Arm] Automatic Cuff Blood Pressure Position Sitting Blood Pressure Position [Right Arm] Sitting 02 Sat by Pulse Oximetry 96 Oxygen Delivery Method Room Air Room Air Lab Data Lab Results 01/13/25 18:10: SARS-CoV-2 (PCR) Not detected 01/13/25 18:10: SARS-CoV-2 (PCR) Not detected, Influenza Type A (PCR) Not detected, Influenza A Untype (PCR) Not detected, Influenza Type B (PCR) Not detected 01/13/25 18:10: Influenza Type B (PCR) Not detected, RSV (PCR) Not detected, Rhinovirus (PCR) Not detected Orders (Tests/Meds): ED MEDICATIONS Discontinued Medications Generic Name Dose Route Start Last Admin Trade Name Freq PRN Reason Stop Dose Admin Acetaminophen 1,000 mg 01/13/25 19:36 01/13/25 20:04 Acetaminophen 500mg Tab PO 01/13/25 19:37 1,000 mg ONCE ONE Administration Azithromycin 500 mg 01/13/25 19:36 01/13/25 20:04 Azithromycin 250mg Tablet PO 01/13/25 19:37 500 mg ONCE ONE Administration Dexamethasone Sodium Phosphate 8 mg 01/13/25 19:45 01/13/25 20:04 Dexamethasone 4mg/Ml 5ml Mdv IM 02/12/25 19:44 8 mg Q6H LEANNE Administration ORDERS Category Date Time Status Mini Respiratory Panel Stat Lab 01/13/25 18:10 Completed Rapid PCR Covid and Flu A/B Stat Lab 09/25/25 18:10 Completed Medical Decision Narrative: patient is a 39-year-old male presenting to the emergency department for evaluation of respiratory symptoms and ear pain with some nausea. Patient is hemodynamically stable and nontoxic-appearing upon arrival, afebrile. Differential diagnosis includes viral illness air infection, COVID, flu, among others. Workup will be conducted with hematologic lab. I wanted to give patient some IV fluids but he refused. His heart rate was initially 120 and I asked him if I could give him some IV fluids to get his heart rate down and he told me that he was late getting his [id number] from work so he had to go. I did give him Tylenol, 1 dose of antibiotic here and a shot of Dex. I told him to monitor his symptoms and asked him to follow-up with his primary care physician. He assured me that he would do those things and drink plenty of fluids. Patient is safe for discharge home Critical Care Critical Care Time Critical Care Time: No
[2025-01-13 20:38] VITALS: BP 154/86; PULSE 108; RESP 22; TEMP 37.1; O2SAT 96
== END 2025-01-13 20:39 | disposition home or self-care (01) ==
PROVIDERS: Emergency Provider Student in an Organized Health Care Education/Training Program; PCP Physician Assistant
DX: H66.93 Otitis media, unspecified, bilateral (principal); R06.02 Shortness of breath; J06.9 Acute upper respiratory infection, unspecified
CPT/HCPCS: 87631; 87636; 96372; 99282; 99283; J1100